=== PATIENT | male | born 1960 | race Caucasian/White ===

== ENCOUNTER 2017-11-10 14:29 | Inpatient (IN) | payer BC ==
[2017-11-10] MEDS ORDERED: NS 1,000 ML IV ONE (15:36)
[2017-11-10] MEDS ORDERED: ONDANSETRON 4 MG/2 ML VIAL IVP ONE (15:43)
[2017-11-10 15:49] LABS: PLATELET COUNT 368 10^3/uL (150-400)
--- NOTE | 2017-11-10 15:53 | EDPHY ---
H & P Time Seen by Provider: 11/10/17 15:21 HPI/ROS: CHIEF COMPLAINT: Vomiting, headache HISTORY OF PRESENT ILLNESS: 57-year-old male presents to the emergency department by private vehicle complaining of 3 weeks of vomiting and severe headache. The patient was diagnosed with squamous cell carcinoma of the head and neck 3 weeks ago in [place]. He had a biopsy done at that time. The patient states since that time he has been vomiting multiple episodes per day. He still has severe frontal headache which she describes as "pressure ". Denies chest pain or difficulty breathing. No fevers or chills. He has lost a great deal of weight. He is not eating or drinking anything. He he has urinated very little. REVIEW OF SYSTEMS: Constitutional: No fever, no chills. Eyes: No double or blurry vision. ENT: No sore throat. Respiratory: No cough, no shortness of breath. Cardiac: No chest pain. Gastrointestinal: Vomiting as above. No abdominal pain or diarrhea. Genitourinary: No dysuria. Musculoskeletal: No neck or back pain. Skin: No rashes. Neurological: headache. Past Medical/Surgical History: Squamous cell carcinoma of the head and neck diagnosed 3 weeks ago, former smoker, chews tobacco, hypertension Social History: from [place] Smoking Status: Former smoker Physical Exam: General Appearance: Lethargic, no distress. Afebrile. Daughter at bedside Eyes: Pupils equal and round. Extraocular motions are all intact. ENT: Mouth: Mucous membranes dry. Respiratory: No wheezing, rhonchi, or rales, lungs are clear to auscultation. Cardiovascular: Regular rate and rhythm. Gastrointestinal: Abdomen is soft and nontender, no masses, no rebound or guarding, bowel sounds normal. Neurological: Alert and oriented x 3, cranial nerves II through XII grossly intact Skin: Warm and dry, no rashes. Musculoskeletal: Nontender to palpate along the cervical, thoracic or lumbar spine. Neck is supple. Extremities: Full range of motion and no peripheral edema. Psychiatric: Patient is oriented X 3, there is no agitation. Constitutional: Initial Vital Signs Temperature (C) 36.8 C 11/10/17 14:37 Heart Rate 61 11/10/17 14:37 Respiratory Rate 16 11/10/17 14:37 Blood Pressure 146/90 H 11/10/17 14:37 O2 Sat (%) 95 11/10/17 14:37 O2 Delivery Mode Room Air Allergies/Adverse Reactions: No Known Allergies Allergy (Unverified 11/10/17 14:36) Home Medications: Medication Instructions Recorded Benazepril HCl 11/10/17 Zofran 11/10/17 fentaNYL 11/10/17 traMADol 11/10/17 Medical Decision Making ED Course/Re-evaluation: Case was discussed with Dr. Aleks Hernandez, secondary supervising physician, who did not directly evaluate the patient but agrees with treatment and plan. 57-year-old male presents with ongoing headache and head pressure as well as multiple episodes of vomiting. The patient will be admitted to the hospital for continued IV therapy and pain management. Awaiting CT imaging of his head and neck to evaluate for possible bleed verses metastasis from his squamous cell carcinoma. Patient received 4 mg of IV morphine with relief as well as 4 mg of Zofran. He received IV normal saline. Differential Diagnosis: Including but not limited to carcinoma, intracranial bleed, dehydration, electrolyte abnormality Care Turn Over: Care will be turned over to Dr. Aleks Hernandez for disposition and plan. Awaiting CT scan results. - Data Points Laboratory Results: Laboratory Results 11/10/17 15:40 11/10/17 15:40 11/10/17 11/10/17 15:40 15:40 WBC 12.78 10^3/uL H 10^3/uL (3.80-9.50) RBC 5.04 10^6/uL 10^6/uL (4.40-6.38) Hgb 15.3 g/dL g/dL (13.7-17.5) Hct 44.2 % % (40.0-51.0) MCV 87.7 fL fL (81.5-99.8) MCH 30.4 pg pg (27.9-34.1) MCHC 34.6 g/dL g/dL (32.4-36.7) RDW 13.2 % % (11.5-15.2) Plt Count 368 10^3/uL 10^3/uL (150-400) MPV 9.1 fL fL (8.7-11.7) Neut % (Auto) 75.9 % H % (39.3-74.2) Lymph % (Auto) 10.8 % L % (15.0-45.0) [place] % (Auto) 10.5 % % (4.5-13.0) Eos % (Auto) 0.6 % % (0.6-7.6) Baso % (Auto) 0.7 % % (0.3-1.7) Nucleat RBC Rel Count 0.0 % % (0.0-0.2) Absolute Neuts (auto) 9.70 10^3/uL H 10^3/uL (1.70-6.50) Absolute Lymphs (auto) 1.38 10^3/uL 10^3/uL (1.00-3.00) Absolute Monos (auto) 1.34 10^3/uL H 10^3/uL (0.30-0.80) Absolute Eos (auto) 0.08 10^3/uL 10^3/uL (0.03-0.40) Absolute Basos (auto) 0.09 10^3/uL 10^3/uL (0.02-0.10) Absolute Nucleated RBC 0.00 10^3/uL 10^3/uL (0-0.01) Immature Gran % 1.5 % H % (0.0-1.1) Immature Gran # 0.19 10^3/uL H 10^3/uL (0.00-0.10) Sodium 134 mEq/L L mEq/L (135-145) Potassium 4.2 mEq/L mEq/L (3.5-5.2) Chloride 98 mEq/L mEq/L (97-110) Carbon Dioxide 21 mEq/l L mEq/l (22-31) Anion Gap 15 mEq/L mEq/L (8-16) BUN 12 mg/dL mg/dL (7-23) Creatinine 0.7 mg/dL mg/dL (0.7-1.3) Estimated GFR > 60 Glucose 111 mg/dL H mg/dL (70-100) Calcium 9.6 mg/dL mg/dL (8.5-10.4) Medications Given: Discontinued Medications Sodium Chloride (Ns) 1,000 mls @ 0 mls/hr IV ONCE ONE PRN Reason: Wide Open Stop: 11/10/17 15:37 Last Admin: 11/10/17 15:43 Dose: 1,000 mls Morphine Sulfate (Morphine) 4 mg IVP EDNOW ONE Stop: 11/10/17 15:49 Last Admin: 11/10/17 15:50 Dose: 4 mg Ondansetron HCl (Zofran) 4 mg IVP EDNOW ONE Stop: 11/10/17 15:44 Last Admin: 11/10/17 15:47 Dose: 4 mg Departure - Departure Disposition: [facility] Clinical Impression: Squamous cell carcinoma Vomiting Qualifiers: Vomiting type: unspecified Vomiting Intractability: intractable Nausea presence : with nausea Qualified Code(s): R11.2 - Nausea with vomiting, unspecified Condition: Fair
[2017-11-10] MEDS ORDERED: IOPAMIDOL (ISOVUE-300) 100 ML BTL ONE (16:58)
[2017-11-10] MEDS ORDERED: PROMETHAZINE HCL 25 MG/ML INJ IVP ONE (19:42)
[2017-11-10] MEDS ORDERED: PROMETHAZINE HCL 25 MG/ML INJ ONE (19:51)
[2017-11-10] MEDS ORDERED: ONDANSETRON DISINTEGRATING 4 MG TAB PO PRN (23:50)
[2017-11-10] MEDS ORDERED: ACETAMINOPHEN 325 MG TAB PO PRN (23:50)
--- NOTE | 2017-11-11 00:21 | PDGENHP ---
History and Physical - Chief Complaint n/v - History of Present Illness this is a 57 yo male with recently diagnosed squamous cell carcinoma of the head and neck in [place] who was schedule to establish care with Oncology today but was sent to the E.D by the front staff due to n/v. Since diagnosis, he has had minimal oral intake due the significant nausea. He feels slightly better since receiving IVF in the E.D. He had a BEEBE in the E.D. and this has resolved. +Weight loss -cp, sob, palpitations, urinary sx's CT scan of head and cervical spine: Significant for posterior nasopharyngeal tumor which is eating up into the clivus. There is fluid in this then 0 8 sinuses. There is no brain bleed or hydrocephalus. No bony mets in the cervical spine. Past Medical/Surgical History: Squamous cell carcinoma of the head and neck diagnosed 3 weeks ago, former smoker, chews tobacco, hypertension Social History: former tobacco chews tobaccom from [place] FmHx: [place] History Information - Allergies/Home Medication List Allergies/Adverse Reactions: No Known Allergies Allergy (Unverified 11/10/17 14:36) Home Medications: Benazepril HCl [Lotensin (*)] 10 mg PO DAILY 11/10/17 [Last Taken 11/10/17] Ondansetron Odt [Zofran Odt 4 mg (*)] 4 mg PO Q4 PRN 11/10/17 [Last Taken 09:00] I have personally reviewed and updated: medical history, social history - Social History Smoking Status: Former smoker Review of Systems Review of Systems: ROS: 10pt was reviewed & negative except for what was stated in HPI & below Physical Exam Physical Exam: Temp Pulse Resp BP Pulse Ox 36.8 C 68 12 151/94 H 98 11/10/17 23:53 11/10/17 23:53 11/10/17 23:53 11/10/17 23:53 11/10/17 23:53 Constitutional: no apparent distress Eyes: PERRL, EOMI Ears, Nose, Mouth, Throat: dry mucous membranes Cardiovascular: regular rate and rhythym Respiratory: no respiratory distress, no rales or rhonchi Gastrointestinal: normoactive bowel sounds, soft, non-tender abdomen Genitourinary: no bladder fullness Skin: warm Neurologic: AAOx3 Psychiatric: interacting appropriately, not anxious, not encephalopathic, thought process linear Lymph, Heme, Immunologic: No petechiae Lab Data & Imaging Review 11/10/17 15:40 11/10/17 15:40 WBC 12.78 10^3/uL (3.80-9.50) H 11/10/17 15:40 RBC 5.04 10^6/uL (4.40-6.38) 11/10/17 15:40 Hgb 15.3 g/dL (13.7-17.5) 11/10/17 15:40 Hct 44.2 % (40.0-51.0) 11/10/17 15:40 MCV 87.7 fL (81.5-99.8) 11/10/17 15:40 MCH 30.4 pg (27.9-34.1) 11/10/17 15:40 MCHC 34.6 g/dL (32.4-36.7) 11/10/17 15:40 RDW 13.2 % (11.5-15.2) 11/10/17 15:40 Plt Count 368 10^3/uL (150-400) 11/10/17 15:40 MPV 9.1 fL (8.7-11.7) 11/10/17 15:40 Neut % (Auto) 75.9 % (39.3-74.2) H 11/10/17 15:40 Lymph % (Auto) 10.8 % (15.0-45.0) L 11/10/17 15:40 [place] % (Auto) 10.5 % (4.5-13.0) 11/10/17 15:40 Eos % (Auto) 0.6 % (0.6-7.6) 11/10/17 15:40 Baso % (Auto) 0.7 % (0.3-1.7) 11/10/17 15:40 Nucleat RBC Rel Count 0.0 % (0.0-0.2) 11/10/17 15:40 Absolute Neuts (auto) 9.70 10^3/uL (1.70-6.50) H 11/10/17 15:40 Absolute Lymphs (auto) 1.38 10^3/uL (1.00-3.00) 11/10/17 15:40 Absolute Monos (auto) 1.34 10^3/uL (0.30-0.80) H 11/10/17 15:40 Absolute Eos (auto) 0.08 10^3/uL (0.03-0.40) 11/10/17 15:40 Absolute Basos (auto) 0.09 10^3/uL (0.02-0.10) 11/10/17 15:40 Absolute Nucleated RBC 0.00 10^3/uL (0-0.01) 11/10/17 15:40 Immature Gran % 1.5 % (0.0-1.1) H 11/10/17 15:40 Immature Gran # 0.19 10^3/uL (0.00-0.10) H 11/10/17 15:40 Sodium 134 mEq/L (135-145) L 11/10/17 15:40 Potassium 4.2 mEq/L (3.5-5.2) 11/10/17 15:40 Chloride 98 mEq/L (97-110) 11/10/17 15:40 Carbon Dioxide 21 mEq/l (22-31) L 11/10/17 15:40 Anion Gap 15 mEq/L (8-16) 11/10/17 15:40 BUN 12 mg/dL (7-23) 11/10/17 15:40 Creatinine 0.7 mg/dL (0.7-1.3) 11/10/17 15:40 Estimated GFR > 60 11/10/17 15:40 Glucose 111 mg/dL (70-100) H 11/10/17 15:40 Calcium 9.6 mg/dL (8.5-10.4) 11/10/17 15:40 Assessment & Plan Assessment: #squamous cell carcinoma of the head and neck #Profound Dehydration #N/V #Beebe, resolving #Unintentional weight loss #Leukocytosis, afebrile PLan: Admission IVF antiemetics pain mgm Onc to see tomorrow Check Mg Lovenox for DVT proph Full code
[2017-11-11] MEDS: NS 1,000 ML IV SCH ×2 (01:24→18:49)
[2017-11-11] MEDS: ONDANSETRON 4 MG/2 ML VIAL IVP PRN ×5 (02:16→20:27)
[2017-11-11] MEDS: HYDROCODONE/APAP 5/325 TAB PO PRN ×4 (03:23→18:16)
[2017-11-11 05:56] LABS: PLATELET COUNT 364 10^3/uL (150-400)
[2017-11-11] MEDS: BENAZEPRIL HCL 10 MG TAB PO SCH (08:05)
[2017-11-11] MEDS: ENOXAPARIN 40 MG/0.4 ML SYR SC SCH (08:06)
[2017-11-11] MEDS ORDERED: ALTEPLASE 2 MG VIAL IVP PRN (08:55)
--- NOTE | 2017-11-11 10:16 | GCON ---
[f rep st] CONSULTATION ONCOLOGY CONSULTATION DATE OF CONSULTATION: 11/11/2017 REASON FOR CONSULTATION: Nasopharyngeal carcinoma. HISTORY OF PRESENT ILLNESS: The patient is a pleasant 57-year-old gentleman, who was previously jazmine ng in [place]. His initial evaluation was done in [place]. The patient reports approximatel y 2 months of frontal headache. This became progressively worse. He was evaluated in [place]. He had imaging studies done, which ultimately revealed evidence of a large nasopharyngeal carcinoma. Th e patient was seen by an ENT in [place]. He underwent direct visualization of the malignancy on October 20. He had deviation of the septum toward the left side. He had multiple biopsies taken of mass in the nasopharynx. Final pathology confirmed an EBV negative, poorly differentiated squamous ce ll carcinoma. The patient opted to have his treatment done here in [place], as his daughter lives locally. He was due to see Dr. Padilla in the outpatient setting, but reported vomiting blood and was, thus, sent to the ER. A head CT done in the ER last evening revealed a 4.5 x 3.6 cm soft tissue mass involv ing the clivus, extending into the prevertebral nasopharyngeal region. There was a posterior nasophar yngeal mucosal mass measuring 5.4 cm with destruction of the clivus, and opacification of bilateral s phenoid sinuses. The patient had a PET CT scan done on October 27 in [place]. This study revealed a hypermetabo lic posterior nasopharyngeal mass extending 5.8 cm vertically x 4.4 cm transversely x 3.9 cm in AP di mension, with moth-eaten destruction of the clivus and skull base, and invasion into the sphenoid sin us. He was noted to have bilateral hypermetabolic cervical lymph node adenopathy, with no evidence of distant metastatic disease. His bleeding appears to have stopped spontaneously. He was evaluated by Dr. Dunn of Radiation Oncology in the ER, and radiation therapy is planned to [facility] either today or tomorrow. He is scheduled to be formally evaluated in the office by Dr. Mona lundberg today. The patient reports a continued headache, which is somewhat better with pain medication. He denies ch est pain, cough, exertional dyspnea. He has lost an unspecified amount of weight. Denies abdominal pa in or bloating. PAST MEDICAL HISTORY: Hypertension, otherwise unremarkable. PAST SURGICAL HISTORY: None. FAMILY MEDICAL HISTORY: Noncontributory. SOCIAL HISTORY: The patient lives in [place]. 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 He is . He smoked b riefly in his youth, but quit in his late teens. He does chew tobacco. He has a daughter, who lives [facility]. REVIEW OF SYSTEMS: As outlined above. The patient additionally denies visual changes. He does note a mild palsy involving the muscles of his left face. Remainder of 10-point review of systems otherwise negative. PHYSICAL EXAM: GENERAL: The patient is resting comfortably in bed. HEENT: He has a subtle left facia l palsy. Pupils are equal and reactive. Extraocular eye movements intact. The function of his facial muscles is grossly normal. He has no upper extremity weakness. NECK: He there is no palpable neck adenopathy. No supraclavicular or axillary adenopathy. HEART: Regular without murmur. LUNGS: Clear bi laterally. ABDOMEN: Soft, nontender, nondistended. EXTREMITIES: No extremity swelling or edema. NEURO LOGIC: Patient alert, oriented, and appropriate. IMAGING STUDIES: As outlined above. LABORATORY DATA: Pathology results as outlined above. BMP from today, sodium 136, potassium 4.4, chloride 100, bicarb 23, BUN 11, creatinine 0.8, magnesium 1.8. CBC from today, white count 14.8, hemoglobin 14.9, hematocrit 42.7, platelet count is 364,000, absolute neutrophil count is 11,370. IMPRESSION: 1. 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 2. Bleeding secondary to #1. 3. Headache secondary to #1. 4. Potential cranial nerve involvement secondary to #1. PLAN: The patient is a 57-year-old gentleman who was admitted with a large nasopharyngeal squamous c ell carcinoma. He has been evaluated by Radiation Oncology in the emergency department. He will be se en formally by Dr. Dunn later today. The tentative plan is to begin radiation either today or [facility]. I favor administering concurrent cisplatin at a dose of 30 mg/m sq weekly with radiation. The plan was discussed with the patient. The side-effect profile of cisplatin was reviewed, including the potential for ototoxicity, nephrotoxicity, neurotoxicity. The patient is motivated to receive ag gressive treatment. I have ordered an MRI of the brain to more formally evaluate his tumor, especially to evaluate the po tential for cranial nerve involvement, which would change his T stage to T4. I have ordered a PICC li ne to be placed in anticipation of chemotherapy. I will coordinate his treatment with Dr. Dunn. Our service will continue to follow the patient during his stay, and hopefully he will be able to begin radiation therapy either today or tomorrow. The patient had multiple questions which were answered. Total time for today's visit was approximately 80 minutes, of which greater than 50% was spent in cou nseling and care coordination. /[id number]/MODL
--- NOTE | 2017-11-11 16:45 | ASMTCMCOM ---
CM Note CM Note Notes: 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 Pt moved from [place] after dx to be closer to dtr. Plan is for pt to start radiation today or tomorrow. He will get a PICC line placed for strt of chemo. [employer] ran benefits for pt's PICC line and he is covered at 100%. CM will follow for support, resources and DC needs. Date Signed: 11/11/2017 04:44 PM Electronically Signed By:Bertha Guevara LCSW
[2017-11-11] MEDS ORDERED: GADOBUTROL 10 ML VIAL IVP ONE (17:23)
[2017-11-11] MEDS ORDERED: PROMETHAZINE HCL 25 MG/ML INJ IVP PRN (18:35)
--- NOTE | 2017-11-11 20:16 | HOSPPROG ---
Hospitalist Progress Note Assessment/Plan: Pt not seen. He was at [facility] for radiation a good part of the day and was not in his room on my 2 attempts to round. I discussed his case with Dr. Delgado, who saw pt today and developed plan. 57 yo male with nasopharyngeal cancer admitted with: #squamous cell carcinoma of the head and neck #Profound Dehydration #N/V #Ymrick, resolving #Unintentional weight loss #Leukocytosis, afebrile Per onc, pt will have PICC placed today, then radiation today and start chemotherapy tomorrow with weekly cisplatin. I note his neck CT showed severe canal stenosis at C3-4 on the left and C5-6 on the right. Will evaluate for radicular symptoms tomorrow. Objective: Vital Signs Temp Pulse Resp BP Pulse Ox 37.0 C 72 18 138/79 H 92 11/11/17 19:39 11/11/17 19:39 11/11/17 19:39 11/11/17 19:39 11/11/17 19:39 Laboratory Results 11/11/17 05:21 11/11/17 05:21 11/10/17 11/11/17 11/12/17 05:59 05:59 05:59 Intake Total 1625 Balance 1625 ICD10 Worksheet Patient Problems: Problems Problem Status Onset Squamous cell carcinoma Acute Vomiting Acute
[2017-11-12] MEDS: HYDROCODONE/APAP 5/325 TAB PO PRN ×3 (01:29→22:13)
[2017-11-12] MEDS: BENAZEPRIL HCL 10 MG TAB PO SCH (08:01)
[2017-11-12] MEDS: ENOXAPARIN 40 MG/0.4 ML SYR SC SCH (08:02)
--- NOTE | 2017-11-12 09:56 | HOSPPROG ---
Hospitalist Progress Note Assessment/Plan: 57 yo male with nasopharyngeal cancer admitted with: #squamous cell carcinoma of the head and neck - Discussed with oncology. PICC placed. Started radiation treatment 11/11, plans to start chemo today after radiation, weekly cisplatin. Pain fairly well controlled with [place] and prn morphine. He likely has cranial nerve involvement with facial numbness and ptosis. Hopefully this will improve with treatment. # volume depletion - improved with IVF's. Taking po better now. # N/V - resolved. PRN anti-emetics. # Myrick - likely related to tumor, waxes and wanes. Pain control as above # Unintentional weight loss # DVT PPLX - high risk with cancer, Lovenox # Dispo - cont inpt Subjective: Pt doing ok this am. Reports headache starting to come back. No N/ V. Wants to eat a cheeseburger. No fevers. Tolerated radiation. Objective: Vital Signs Temp Pulse Resp BP Pulse Ox 36.9 C 69 15 121/76 H 96 11/12/17 07:58 11/12/17 07:58 11/12/17 07:58 11/12/17 07:58 11/12/17 07:58 Laboratory Results 11/12/17 03:31 11/12/17 03:31 11/11/17 11/12/17 11/13/17 05:59 05:59 05:59 Intake Total 1625 1634 Balance 1625 1634 - Physical Exam Constitutional: no apparent distress Eyes: PERRL, other (left ptosis) Ears, Nose, Mouth, Throat: moist mucous membranes Cardiovascular: regular rate and rhythym Respiratory: no respiratory distress Gastrointestinal: normoactive bowel sounds, soft, non-tender abdomen Skin: warm Musculoskeletal: full muscle strength Neurologic: other (left facial sensory deficit) Psychiatric: interacting appropriately ICD10 Worksheet Patient Problems: Problems Problem Status Onset Squamous cell carcinoma Acute Vomiting Acute
--- NOTE | 2017-11-12 11:53 | PDMN ---
Medical Necessity Medical necessity: M87 chemo- A-3 pt with nasopharyngeal Ca- squamous cell Carcinoma of head and neck. with PICC line placed for radiation/ Chemo
[2017-11-12] MEDS ORDERED: NS 1,000 ML IV ONE (14:00)
[2017-11-12] MEDS ORDERED: DEXAMETHASONE SOD PHOSPHATE IV ONE (14:30)
[2017-11-12] MEDS ORDERED: PALONOSETRON HCL 0.25 MG/5 ML VIAL IVP ONE (14:30)
[2017-11-12] MEDS ORDERED: FOSAPREPITANT 150 MG in NS 250 ML IV ONE (14:30)
[2017-11-12] MEDS ORDERED: NS IV ONE (15:00)
[2017-11-12] MEDS ORDERED: CISPLATIN IV ONE (15:00)
[2017-11-12] MEDS ORDERED: NS 500 ML IV ONE (15:30)
--- NOTE | 2017-11-12 15:55 | SOAPPROG ---
SOAP Progress Note Assessment/Plan: Assessment: 1) Locally advanced T3/T4N2 Nasopharyngeal SCC (EBV negative) 2) Potential cranial nerve involvement from #1 3) Bleeding secondary to #1 Plan: Patient was simulated by Dr. Dnun and began definitive radiation yesterday. Thus far, he is doing well, and has had no further episodes of bleeding. He will receive his first dose of radiosensitizing Cisplatin (30 mg/m2) today. Side effect profile, and intent of treatment again discussed with patient. Risk of neurotoxicity, nephrotoxicity, otoxicty associated with Cisplatin discussed. He can potentially be discharged over the weekend if no further bleeding. Dr. Padilla will continue his treatment as an outpatient. MRI done yesterday will help to refine the fci radiation treatment plan. Plan d/w patient. His questions were answered. 11/12/17 15:48 11/12/17 15:55 Subjective: No further bleeding. XRT began yesterday. He has had 2 tx thus far. Objective: Vital Signs Temp Pulse Resp BP Pulse Ox 37.2 C 76 19 124/84 H 95 11/12/17 12:21 11/12/17 12:21 11/12/17 12:21 11/12/17 12:21 11/12/17 12:21 - Time Spent With Patient Time Spent With Patient: 25 minutes Physical Exam - Physical Exam General Appearance: alert, no apparent distress EENT: other (Mild Left facial palsy. No evidence of bleeding.) Respiratory: lungs clear Neuro/Psych: alert, normal mood/affect ICD10 Worksheet Patient Problems: Problems Problem Status Onset Squamous cell carcinoma Acute Vomiting Acute
--- NOTE | 2017-11-12 15:59 | ASMTCMCOM ---
CM Note CM Note Notes: Met with pt to discuss his DC needs. Grace Wilcox, clinical data specialist is recommending the prehab program for head and neck cancer pts which consists of outpt St/RN/PT/OT. Discussed with pt the option the having these services at home if transportation to an outpt facility would be difficult. Pt wants to discuss with dtr. Also asked pt if his dtr was available to transport him to [facility] for radiation. Pt asked that Cm reach out to dtr Ashley ([phone]). for dtr. CM will continue to follow for support, resources and DC needs. Date Signed: 11/12/2017 03:59 PM Electronically Signed By:Bertha Guevara LCSW
[2017-11-12] MEDS ORDERED: BISACODYL 10 MG SUPP PR PRN (18:21)
[2017-11-12] MEDS ORDERED: POLYETHYLENE GLYCOL 3350 17 GM PKT PO PRN (18:21)
[2017-11-12] MEDS ORDERED: MAGNESIUM HYDROXIDE 30 ML UDCUP PO PRN (18:21)
[2017-11-12] MEDS ORDERED: LACTULOSE 20 GM/30 ML UDCUP PO PRN (18:21)
[2017-11-12] MEDS: SENNOSIDES/DOCUSATE SODIUM TAB PO SCH (20:22)
[2017-11-12 21:03] VITALS: RESP 18
[2017-11-13] MEDS: HYDROCODONE/APAP 5/325 TAB PO PRN (04:16)
[2017-11-13] MEDS: BENAZEPRIL HCL 10 MG TAB PO SCH (08:41)
[2017-11-13] MEDS: SENNOSIDES/DOCUSATE SODIUM TAB PO SCH (08:42)
[2017-11-13] MEDS: ENOXAPARIN 40 MG/0.4 ML SYR SC SCH (08:42)
--- NOTE | 2017-11-13 10:36 | SOAPPROG ---
SOAP Progress Note Assessment/Plan: Assessment/Plan: 1. Locally advanced T3/T4N2 nasopharyngeal SCC (EBV negative) started definitive radiation 11/11/2017 C1 Cisplatin (30mg/m2) given 11/12/2017 having nausea today likely associated w Cisplatin as well as narcotic use Zofran making worse per pt pt wanting to go home but would like nausea to subside a bit Add compazine trial of oral dilaudid for pain control 2. Potential CN involvement from #1 3. Bleeding 2/2 #1 - none since admission D/C ok if nausea/pain controlled F/U w Dr Padilla as outpt on discharge 11/13/17 10:30 Subjective: nauseated no vomiting BM this a.m Pain ok but pain meds seemingly making him more nauseated Objective: Vital Signs Temp Pulse Resp BP Pulse Ox 36.7 C 75 18 146/96 H 93 11/13/17 07:22 11/13/17 07:22 11/13/17 07:22 11/13/17 07:22 11/13/17 07:22 Laboratory Results 11/13/17 04:15 11/12/17 11/13/17 11/14/17 05:59 05:59 05:59 Intake Total 1850 350 Output Total 1525 Balance 325 350 Gen - NAD, but uncomfortable HEENT - anicteric CV - RRR Chest - CTAB Abd - soft, NT Ext - no edema ICD10 Worksheet Patient Problems: Problems Problem Status Onset Squamous cell carcinoma Acute Vomiting Acute
[2017-11-13] MEDS ORDERED: PROCHLORPERAZINE MALEATE 10 MG TAB PO PRN (11:07)
[2017-11-13] MEDS ORDERED: HYDROmorphONE/DILAUDID 4 MG TAB PO PRN (11:07)
[2017-11-13 11:19] VITALS: BP 149/84; PULSE 84; TEMP 98.3; O2SAT 95
[2017-11-13] MEDS ORDERED: ACETAMINOPHEN 500 MG TAB PO SCH (11:30)
--- NOTE | 2017-11-13 13:22 | PDIAF ---
- Diagnosis Diagnosis: nasophayrngeal cancer Code Status: Full Code - Medication Management Discharge Medications: Medications to Continue on Transfer Benazepril HCl [Lotensin (*)] 10 mg PO DAILY 11/10/17 [Last Taken 11/10/17] Ondansetron Odt [Zofran Odt 4 mg (*)] 4 mg PO Q4 PRN 11/10/17 [Last Taken 09:00] Acetaminophen [Tylenol ES 500 mg (*)] 1,000 mg PO TID #90 tab 11/13/17 [Last Taken Unknown] HYDROmorphone HCL [Dilaudid 4 mg (*)] 4 mg PO Q4HRS PRN #30 tab 11/13/17 [Last Taken Unknown] Ondansetron Odt [Zofran Odt 4 mg (*)] 4 mg PO Q4HRS PRN #30 tab 11/13/17 [Last Taken Unknown] Prochlorperazine Maleate [Compazine 10mg (*)] 10 mg PO Q6HRS PRN #30 tab [Last Taken Unknown] Sennosides/Docusate Sodium [Senokot-S] 1 - 2 tab PO BID tab 11/13/17 [Last Taken Unknown] Discharge Medications: Refer to the Discharge Home Medication list for PRN reason. PICC Care - Routine: Yes - Orders Services needed: Home Care, Registered Nurse Home Care Face to Face: I certify that this patient was under my care and that I had the required [id number] encounter meeting the encounter requirements on the discharge day. My findings support the fact that the patient is homebound as defined in Home Care Face to Face Continued: CMS Chapter 7 Medicare Benefits Manual 30.1.1 , The condition of the patient is such that there exists a normal inability to leave home and consequently, leaving home would require a considerable and taxing effort. Diet Recommendation: no restrictions on diet Diet Texture: Regular Texture Diet, Thin Liquids, Meds Whole w/Liquids - Follow Up Care Current Providers and Referrals: NONE *PRIMARY CARE P,. [Primary Care Provider] - As per Instructions Petar Padilla MD [Medical Doctor] -
--- NOTE | 2017-11-13 13:52 | ASDISCHSUM ---
Discharge Information Plan Status:IV ABX/Infusion Medically Cleared to Leave:11/12/2017 Discharge Date:11/13/2017 01:48 PM D/C Disposition:Home Health Service [facility] D/C Disposition:Home, Routine, Self-Care Projected Discharge Date:11/13/2017 02:00 PM Transportation at D/C:Family Discharge Delay Reason: Follow-Up Date:11/13/2017 02:00 PM Discharge Slot: Final Diagnosis: Placement Information Referral Type:Home Infusion Referral ID:[id number] Provider Name:[facility] ([facility]ly [facility]) Address 1:[address] Address 2: City:[place] Selection Factors: State:[place] Patient Contact Information Contact Name:OSCAR Relationship:Daughter Address:[address] [address] Work Phone: City:[place] Alternate Phone: State/Zip Code:[place] [address] Email: Financial Information Financial Class:HMO and PPO Plans Primary Plan Desc: OUT OF STATE PPO Primary Plan Number:[id number] Secondary Plan Desc: Secondary Plan Number: Assessment Information [facility] CM Progress Note CM Note CM Note Notes: 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 Pt moved from [place] after dx to be closer to dtr. Plan is for pt to start radiation today or tomorrow. He will get a PICC line placed for strt of chemo. [employer] ran benefits for pt's PICC line and he is covered at 100%. CM will follow for support, resources and DC needs. Date Signed: 11/11/2017 04:44 PM Electronically Signed By:Bertha Guevara LCSW [facility] CM Progress Note CM Note CM Note Notes: Met with pt to discuss his DC needs. Grace Wilcox, plant specialist is recommending the prehab program for head and neck cancer pts which consists of outpt St/RN/PT/OT. Discussed with pt the option the having these services at home if transportation to an outpt facility would be difficult. Pt wants to discuss with dtr. Also asked pt if his dtr was available to transport him to [facility] for radiation. Pt asked that Cm reach out to dtr Ashley ([phone]). LM for dtr. CM will continue to follow for support, resources and DC needs. Date Signed: 11/12/2017 03:59 PM Electronically Signed By:Bertha Guevara LCSW Case Management Discharge Plan Note Case Management Discharge Discharge Order Complete? Answers: Yes Patient to Obtain Answers: via Family Medications Transportation Arranged Answers: Family/Friends Faxed Final Orders Answers: Yes Family Notified Answers: Yes Discharge Comments Notes: Dc order received. Spoke with RN & MD. Ellen Wood at [facility]; agreeable to providing RN for PICC care support; dc orders faxed; confirmed recieved. Met with pt & his daughter, Ashley ([phone]); Ashley states her & her friend are planning on transporting pt back & forth to upcoming [facility] appointments. Discussed [employer] providing PICC support; pt agreeable; address & phone number confirmed. Updated MD & RN. No other needs at this time. Date Signed: 11/13/2017 01:49 PM Electronically Signed By:Purvi Becerril RN Intervention Information Intervention Type:*Incorrect Registration Date of Service:11/11/2017 09:11 AM Patient Type:Inpatient Staff Member:BRIAN Dan, Marley Hours: Discipline: Severity: Comment:
--- NOTE | 2017-11-13 20:25 | GDS ---
[f rep st] DISCHARGE SUMMARY DISCHARGE DIAGNOSES: 1. Squamous cell carcinoma of the head and neck. 2. Volume depletion, resolved with IV fluids. 3. Nausea, vomiting, resolved. 4. Headache, likely related to compression from the tumor. This is improved. 5. Diplopia, likely related to tumor compression. This is resolved at the time of discharge. 6. Facial numbness, likely related to cranial nerve compression from his tumor. 7. Ptosis, likely related to cranial nerve compression from tumor. This is resolved at time of disc harge. CONSULTANTS: Dr. Donn Delgado, Oncology. PROCEDURES: 1. Head CT November 10, 2017, shows posterior nasopharyngeal mass with associated destruction of the clivus consistent with local regional osseous metastasis and complete opacification of the sphenoid s inuses consistent with the patient's nasopharyngeal carcinoma. No evidence of hemorrhage, hydrocepha genny, midline shift, herniation or hematoma. 2. Cervical spine CT November 10, 2017, again showed posterior nasopharyngeal carcinoma with local re gional metastasis and complete destruction of the entire clivus, moderate cervical spondylosis, worse at C6-C7, resulting in C5-C6 moderate central canal stenosis, and very well [id number] neura l foraminal stenosis, worse on the left at C3-C4, and right C5-C6, with no definite osseous metastasi s to the cervical spine. 3. Brain MRI November 11, 2017, again showed large skull base mass extending from the nasopharynx to the sphenoid sinus into the clivus, compatible with primary recurrent nasopharyngeal malignancy with lateral extension of tumor into the cavernous sinus regions bilaterally. Nonspecific white matter di sease was noted. No evidence of intracranial metastases. 4. PICC line insertion November 11, 2017. HISTORY: For details, please see history and physical dated November 11, 2017. In brief, the patient is a 57-year-old male who was recently diagnosed with squamous cell carcinoma of the head and neck [facility]. Sent to Emergency Department with nausea and vomiting. He was admitted to the [facility] for further management. HOSPITAL COURSE: The patient admitted to Med/Surg Unit. He received IV fluids and antiemetics. He thinks his nausea and vomiting may have been related to his opioid use, and he feels he has more symp toms from Vicodin, and has tolerated Dilaudid better in the past. His nausea and vomiting completely resolved. He is eating burritos from [employer] on the day of discharge. Oncology consult was lambert gambino. He was also evaluated by Radiation Oncology, and radiation treatment was initiated. After 2 da ys of radiation, his ptosis has resolved. His visual deficits have also resolved, though he still fair s facial numbness. He received his first dose of cisplatin, and will follow the [facility] for ongoing chemotherapy treatments. Imaging was obtained as described above. DISPOSITION: The patient is discharged home in stable condition with home health RN care for [facility]. FOLLOWUP: Dr. Petar Padilla at [facility]. DISCHARGE MEDICATIONS: Please see Farm[facility] for completed up-to-date medication list. New medication s on discharge include: Tylenol 1,000 mg p.o. t.i.d. #90 no refills, Dilaudid 4 mg p.o. q.4 hours p. r.n. #30 no refills, Zofran 4 mg p.o. q.4 hours p.r.n. #30 no refills, Compazine 10 mg p.o. q.6 hours p.r.n. #30 no refills, Senokot 1-2 tabs p.o. twice b.i.d. p.r.n. constipation. He will continue all other outpatient medications as previously prescribed, including benazepril 10 m g p.o. daily. /[id number]/MODL
[2017-11-14] MEDS ORDERED: ONDANSETRON DISINTEGRATING 4 MG TAB PO PRN (09:00)
[2017-11-14] MEDS ORDERED: ONDANSETRON 4 MG/2 ML VIAL IVP PRN (09:00)
== END 2017-11-13 13:48 | disposition home health service (06) | DRG 147 ==
LOC: INTOOBSV 18:39 → F1N 21:30 → OBSVTOIN 11-12 11:54
PROVIDERS: ADMIT Family Medicine; ATTEND Hospitalist
PROC: 02HV33Z Insertion of Infusion Device into Superior Vena Cava, Percutaneous Approach (ICD-10-PCS; principal; 2017-11-11)
PROC: 0JH60XZ Insertion of Tunneled Vascular Access Device into Chest Subcutaneous Tissue and Fascia, Open Approach (ICD-10-PCS; principal; 2017-11-11)
PROC: 3E04305 Introduction of Other Antineoplastic into Central Vein, Percutaneous Approach (ICD-10-PCS; 2017-11-11)
DX: C11.9 Malignant neoplasm of nasopharynx, unspecified (principal); C79.51 Secondary malignant neoplasm of bone; E86.0 Dehydration; D72.829 Elevated white blood cell count, unspecified; R11.2 Nausea with vomiting, unspecified; R51 Headache; H53.2 Diplopia; R20.2 Paresthesia of skin; I10 Essential (primary) hypertension; H02.409 Unspecified ptosis of unspecified eyelid; M48.02 Spinal stenosis, cervical region; Z87.891 Personal history of nicotine dependence
CPT/HCPCS: 92610-GN; 96374; 97161-GP; A9585; C1751; G0378; J1100; J1200; J1453; J1650; J2270; J2405; J2469; J2550; J9060; Q9967

== ENCOUNTER 2017-11-15 07:00 | Emergency (ER) | payer BC ==
[2017-11-15] MEDS ORDERED: ONDANSETRON 4 MG/2 ML VIAL ONE (07:15)
[2017-11-15] MEDS ORDERED: ONDANSETRON 4 MG/2 ML VIAL IVP ONE (07:19)
--- NOTE | 2017-11-15 07:31 | EDPHY ---
H & P Stated Complaint: vomiting -currently getting chemo/radiation head/neck CA - Personal History Current Tetanus/Diphtheria Vaccine: No Current Tetanus Diphtheria and Acellular Pertussis (TDAP): No - Medical/Surgical History Hx Asthma: No Hx Chronic Respiratory Disease: No Hx Diabetes: No Hx Cardiac Disease: No Hx Renal Disease: No Hx Cirrhosis: No Hx Alcoholism: No Hx HIV/AIDS: No Hx Splenectomy or Spleen Trauma: No Other PMH: squamous cell carcinoma head and neck, HTN, - Social History Smoking Status: Former smoker Constitutional: Initial Vital Signs Temperature (C) 36.5 C 11/15/17 07:03 Heart Rate 77 11/15/17 07:03 Respiratory Rate 18 11/15/17 07:03 Blood Pressure 145/90 H 11/15/17 07:03 O2 Sat (%) 95 11/15/17 07:03 O2 Delivery Mode Room Air Allergies/Adverse Reactions: No Known Allergies Allergy (Unverified 11/10/17 14:36) Home Medications: Medication Instructions Recorded Benazepril HCl 11/15/17 Dilaudid 11/15/17 Prochlorperazine Maleate 11/15/17 Medical Decision Making ED Course/Re-evaluation: CHIEF COMPLAINT: HISTORY OF PRESENT ILLNESS: REVIEW OF SYSTEMS: A 10 point review of systems was performed and is negative with the exception of the elements mentioned in the history of present illness. PHYSICAL EXAM: HR, BP, O2 Sat, RR. Temp noted General Appearance: Alert, well hydrated, appropriate, and non-toxic appearing. Head: Atraumatic without scalp tenderness or obvious injury Eyes: Pupils equal, round, reactive to light and accommodation, EOMI, no trauma , no injection. Ears: Clear bilaterally, no perforation, normal landmarks Nose: Atraumatic, no rhinorrhea, clear. Throat: There is no erythema or exudates, no lesions, normal tonsils, mucus membranes moist. Neck: Supple, 2+ carotid upstroke, non-tender, no lymphadenopathy. Respiratory: No retractions, no distress, no wheezes, and no accessory muscle use. Lungs are clear to auscultation bilaterally. Cardiovascular: Regular rate and rhythm, no murmurs, rubs, or gallops. Bilateral carotid, radial, dorsalis pedis, and posterior tibial pulses intact. Good capillary refill all extremities. Gastrointestinal: Abdomen is soft, non-tender, non-distended, no masses, no rebound, no guarding, no peritoneal signs. Musculoskeletal: Normal active ROM of all extremities, atraumatic. Neurological: Alert, appropriate, and interactive. The patient has normal DTRs and non-focal cranial nerves, motor, sensory, and cerebellar exam. Skin: No rashes, good turgor, no nodules on palpation. PAST MEDICAL HISTORY: PAST SURGICAL HISTORY: SOCIAL HISTORY: DIAGNOSTICS/PROCEDURES/CRITICAL CARE TIME: DIFFERENTIAL DIAGNOSIS: MEDICAL DECISION MAKING: - Data Points Medications Given: Discontinued Medications Ondansetron HCl (Zofran) 4 mg IVP EDNOW ONE Stop: 11/15/17 07:20 Last Admin: 11/15/17 07:19 Dose: 4 mg Departure - Departure Referrals: NONE *PRIMARY CARE P,. [Primary Care Provider] - As per Instructions
--- NOTE | 2017-11-15 07:31 | EDPHY ---
H & P Stated Complaint: vomiting -currently getting chemo/radiation head/neck CA Time Seen by Provider: 11/15/17 07:23 - Personal History Current Tetanus/Diphtheria Vaccine: No Current Tetanus Diphtheria and Acellular Pertussis (TDAP): No - Medical/Surgical History Hx Asthma: No Hx Chronic Respiratory Disease: No Hx Diabetes: No Hx Cardiac Disease: No Hx Renal Disease: No Hx Cirrhosis: No Hx Alcoholism: No Hx HIV/AIDS: No Hx Splenectomy or Spleen Trauma: No Other PMH: squamous cell carcinoma head and neck, HTN, - Social History Smoking Status: Former smoker Constitutional: Initial Vital Signs Temperature (C) 36.5 C 11/15/17 07:03 Heart Rate 77 11/15/17 07:03 Respiratory Rate 18 11/15/17 07:03 Blood Pressure 145/90 H 11/15/17 07:03 O2 Sat (%) 95 11/15/17 07:03 O2 Delivery Mode Room Air Allergies/Adverse Reactions: No Known Allergies Allergy (Unverified 11/10/17 14:36) Home Medications: Medication Instructions Recorded Benazepril HCl 11/15/17 Dilaudid 11/15/17 Prochlorperazine Maleate 11/15/17 Medical Decision Making ED Course/Re-evaluation: CHIEF COMPLAINT: Nausea and vomiting HISTORY OF PRESENT ILLNESS: The patient is a 57 y/o male with active squamous cell carcinoma arriving with his daughter complaining of severe nausea and vomiting onset last night. He was recently diagnosed with a large nasopharyngeal tumor and was admitted a week ago for nausea and vomiting that resolved with fluids and antiemetics and diplopia, facial numbness, and ptosis likely related to nerve compression from tumor. He began radiation treatment and had a brain MRI during that admission and is followed by Dr. Padilla for outpatient treatment. He had his first chemotherapy session this week. He has been using a variety of antiemetics at home including Reglan, Compazine, Phenergan, and Zofran without alleviation of his nausea and vomiting. IV Zofran worked for symptoms while in the hospital earlier. He denies abdominal pain, fever, diarrhea, cough, dyspnea, chest pain. REVIEW OF SYSTEMS: A 10 point review of systems was performed and is negative with the exception of the elements mentioned in the history of present illness. PHYSICAL EXAM: HR, BP, O2 Sat, RR. Temp noted General Appearance: Alert, well hydrated, appropriate, and non-toxic appearing. Head: Atraumatic without scalp tenderness or obvious injury Eyes: Pupils equal, round, reactive to light and accommodation, EOMI, no trauma , no injection. Nose: Atraumatic, no rhinorrhea, clear. Throat: Mucus membranes moist. Neck: Supple, nontender, no lymphadenopathy. Respiratory: No retractions, no distress, no wheezes, and no accessory muscle use. Lungs are clear to auscultation bilaterally. Cardiovascular: Regular rate and rhythm, no murmurs, rubs, or gallops. Good capillary refill all extremities. PICC left arm. Gastrointestinal: Abdomen is soft, nontender, non-distended, no masses, no rebound, no guarding, no peritoneal signs. Musculoskeletal: Normal active ROM of all extremities, atraumatic. Neurological: Alert, appropriate, and interactive. The patient has non-focal cranial nerves, motor, sensory, and cerebellar exam. Skin: No rashes, good turgor, no nodules on palpation. Past medical history: Squamous cell carcinoma of head and neck with large nasopharyngeal tumor - radiation & chemotherapy; hypertension Past surgical history: Denies Family history: Noncontributory Social history: Former smoker, chews tobacco. Daughter at bedside. From [place] Prior medical records reviewed including admission 11/10/17 for nausea and vomiting related to tumor. DIFFERENTIAL DIAGNOSIS: The differential diagnosis for the patient's nausea and vomiting included but was not limited to side effects of chemotherapy and radiation treatments, effect from nasopharyngeal tumor, gastroenteritis, gastritis, appendicitis, and medication side effect. MEDICAL DECISION MAKING: This is a 57 y/o male with recent diagnosis of a large squamous cell carcinoma nasopharyngeal tumor who presents with persistent nausea and vomiting following recent chemotherapy and radiation treatments. His exam is unremarkable. Plan for IV, labs, and symptom management. Lactate ordered to evaluate for hypoperfusion due to dehydration. 1L IV NS and 4mg IV Zofran administered for symptoms. Reassessed patient. He is tolerating PO fluids after one dose of Zofran. His labs looks normal. He has two more oncology appointments scheduled this morning and feels comfortable leaving so he can attend those appointments. He will receive an additional 4mg IV Zofran prior to discharge. We've put in a note for case management to discuss options for home nursing care for IV Zofran needs in the future as well. He and his daughter are comfortable with this plan. - Data Points Laboratory Results: Laboratory Results 11/15/17 06:40 11/15/17 06:40 11/15/1718 18 06:40 06:40 06:40 WBC 7.65 10^3/uL 10^3/uL (3.80-9.50) RBC 4.89 10^6/uL 10^6/uL (4.40-6.38) Hgb 14.6 g/dL g/dL (13.7-17.5) Hct 42.4 % % (40.0-51.0) MCV 86.7 fL fL (81.5-99.8) MCH 29.9 pg pg (27.9-34.1) MCHC 34.4 g/dL g/dL (32.4-36.7) RDW 12.8 % % (11.5-15.2) Plt Count 333 10^3/uL 10^3/uL (150-400) MPV 9.2 fL fL (8.7-11.7) Neut % (Auto) 69.1 % % (39.3-74.2) Lymph % (Auto) 13.2 % L % (15.0-45.0) [place] % (Auto) 13.7 % H % (4.5-13.0) Eos % (Auto) 2.1 % % (0.6-7.6) Baso % (Auto) 1.0 % % (0.3-1.7) Nucleat RBC Rel Count 0.0 % % (0.0-0.2) Absolute Neuts (auto) 5.28 10^3/uL 10^3/uL (1.70-6.50) Absolute Lymphs (auto) 1.01 10^3/uL 10^3/uL (1.00-3.00) Absolute Monos (auto) 1.05 10^3/uL H 10^3/uL (0.30-0.80) Absolute Eos (auto) 0.16 10^3/uL 10^3/uL (0.03-0.40) Absolute Basos (auto) 0.08 10^3/uL 10^3/uL (0.02-0.10) Absolute Nucleated RBC 0.00 10^3/uL 10^3/uL (0-0.01) Immature Gran % 0.9 % % (0.0-1.1) Immature Gran # 0.07 10^3/uL 10^3/uL (0.00-0.10) VBG Lactic Acid 1.1 mmol/L mmol/L (0.7-2.1) Sodium 136 mEq/L mEq/L (135-145) Potassium 3.7 mEq/L mEq/L (3.5-5.2) Chloride 100 mEq/L mEq/L (97-110) Carbon Dioxide 21 mEq/l L mEq/l (22-31) Anion Gap 15 mEq/L mEq/L (8-16) BUN 11 mg/dL mg/dL (7-23) Creatinine 0.7 mg/dL mg/dL (0.7-1.3) Estimated GFR > 60 Glucose 98 mg/dL mg/dL (70-100) Calcium 9.6 mg/dL mg/dL (8.5-10.4) Total Bilirubin 0.6 mg/dL mg/dL (0.1-1.4) Conjugated Bilirubin 0.3 mg/dL mg/dL (0.0-0.5) Unconjugated Bilirubin 0.3 mg/dL mg/dL (0.0-1.1) AST 24 IU/L IU/L (17-59) ALT 43 IU/L IU/L (21-72) Alkaline Phosphatase 94 IU/L IU/L (38-126) Total Protein 7.1 g/dL g/dL (6.3-8.2) Albumin 4.0 g/dL g/dL (3.5-5.0) Lipase 78 IU/L IU/L (23-300) Medications Given: Discontinued Medications Sodium Chloride (Ns) 1,000 mls @ 0 mls/hr IV EDNOW ONE; Wide Open PRN Reason: Protocol Stop: 11/15/17 07:40 Last Admin: 11/15/17 07:44 Dose: 1,000 mls Ondansetron HCl (Zofran) 4 mg IVP EDNOW ONE Stop: 11/15/17 07:20 Last Admin: 11/15/17 07:19 Dose: 4 mg Departure - Departure Disposition: Home, Routine, Self-Care Clinical Impression: Squamous cell carcinoma, Chemotherapy induced nausea and vomiting Vomiting Qualifiers: Vomiting type: unspecified Vomiting Intractability: non-intractable Nausea presence: with nausea Qualified Code(s): R11.2 - Nausea with vomiting, unspecified Condition: Good Instructions: Acute Nausea and Vomiting (ED), Squamous Cell Carcinoma (DC) Additional Instructions: 1. Follow up with your oncologist today as planned. 2. We've asked our case management team to contact you to help navigate possible home care options for future IV Zofran needs. Recommend also contacting your insurance as well as speaking with your oncology team to discuss these options. 3. We are of course always happy to see you in the ED as needed. Please return to the ED for fever, if you are unable to keep down food or water at home, or any worsening of condition. Referrals: Petar Padilla MD [Medical Doctor] - As per Instructions Report Scribed for: Stephen Alvarado Report Scribed by: Melissa Fontanez Date of Report: 11/15/17 Time of Report: 08:06
[2017-11-15] MEDS ORDERED: NS 1,000 ML IV ONE (07:39)
[2017-11-15 07:47] LABS: PLATELET COUNT 333 10^3/uL (150-400)
[2017-11-15 08:37] VITALS: BP 159/102; PULSE 63; RESP 16; TEMP 97.9; O2SAT 93
== END 2017-11-15 08:36 | disposition home or self-care (01) ==
DX: R11.2 Nausea with vomiting, unspecified (principal); T45.1X5A Adverse effect of antineoplastic and immunosuppressive drugs, initial encounter; C11.9 Malignant neoplasm of nasopharynx, unspecified; I10 Essential (primary) hypertension; E86.9 Volume depletion, unspecified; Z85.828 Personal history of other malignant neoplasm of skin; Z87.891 Personal history of nicotine dependence
CPT/HCPCS: 96374; J2405

== ENCOUNTER 2017-11-23 09:16 | Day surgery (SDC) | payer BC ==
[~2017-11-23 09:16] MED LIST: FLUMAZENIL 0.5 MG/5 ML MDV IVP PRN; MEPERIDINE 25 MG/ML SYR IVP PRN; MIDAZOLAM 2 MG/2 ML VIAL IVP PRN; NALOXONE HCL 0.4 MG/ML INJ IVP PRN; NS 1,000 ML IV SCH; fentaNYL 100 MCG/2 ML INJ IVP PRN
[2017-11-23] MEDS ORDERED: IOPAMIDOL (ISOVUE-300) 100 ML BTL ONE ×3 (09:44→11:18)
[2017-11-23] MEDS ORDERED: LIDOCAINE 1% 300 MG/30 ML SDV ONE (09:45)
[2017-11-23] MEDS ORDERED: LIDOCAINE 2% JELLY 20 ML (UROJECT) ONE (09:45)
--- NOTE | 2017-11-23 10:22 | PDPROPOC ---
Sedation Plan of Care Sedation Plan of Care: vital signs stable, mental status noted, patient educated of risks, benefits, alternatives, patient can tolerate sedation ASA Classification: ASA 3 Planned drugs: fentanyl, midazolam Mallampati Score: Class 1 Mallampati Reference Image: Patient passed 3-3-2 rule?: Yes
[2017-11-23] MEDS ORDERED: ONDANSETRON 4 MG/2 ML VIAL ONE (10:24)
--- NOTE | 2017-11-23 10:24 | PDGENHP ---
History & Physical Chief Complaint: NASOPHARYNGEAL CA History of Present Illness: GOING THROUGH CHEMOTHERAPY. NEED PROPHYLACTIC G- TUBE PLACEMENT. Pertinent Past, Social, Family History: H/O SMOKING, STOPPED 20 YRS AGO. Relevant Physical Exam: IN NO DISTRESS. Cardiorespiratory Assessment: RRR, CTA SANDY
[2017-11-23] MEDS ORDERED: fentaNYL 100 MCG/2 ML INJ ONE (10:25)
[2017-11-23] MEDS ORDERED: MIDAZOLAM 2 MG/2 ML VIAL ONE (10:25)
[2017-11-23] MEDS ORDERED: ACETAMINOPHEN 325 MG TAB PO PRN (11:23)
[2017-11-23] MEDS ORDERED: ONDANSETRON 4 MG/2 ML VIAL IVP PRN (11:23)
--- NOTE | 2017-11-23 11:27 | PDRADPN ---
Radiology Procedure Note Date of Procedure: 11/23/17 Radiologist: Danielle Madrid Anesthesia: IV Sedation (fentanyl and versed) Pre-op Diagnosis: nasopharyngeal CA Post-op Diagnosis: same Indication: needs prophylactic access Procedure: G-tube placement Finding(s): G-tube placed. Inf/Abcess present in the surg proc area at time of surgery?: No Complications: none
[2017-11-23 12:04] VITALS: RESP 16
[2017-11-23 13:13] VITALS: BP 132/99; O2SAT 96
== END 2017-11-23 12:35 | disposition home or self-care (01) ==
LOC: FIMAGING 09:16
PROVIDERS: ATTEND Internal Medicine Hematology & Oncology
PROC: 0DH63UZ Insertion of Feeding Device into Stomach, Percutaneous Approach (ICD-10-PCS; principal; 2017-11-23 11:30)
DX: C11.9 Malignant neoplasm of nasopharynx, unspecified (principal)
CPT/HCPCS: 49440; 99152; C1729; C1769; J1644; J2250; J2405; J3010; Q9967

== ENCOUNTER → 2017-11-25 | Outpatient (CLI) | payer BC | LOC: FIMAGING 17:32 | PROVIDERS: ATTEND Nurse Practitioner | DX: I82.622 Acute embolism and thrombosis of deep veins of left upper extremity (principal); I82.A12 Acute embolism and thrombosis of left axillary vein; I82.B12 Acute embolism and thrombosis of left subclavian vein; C11.9 Malignant neoplasm of nasopharynx, unspecified ==

== ENCOUNTER → 2017-12-22 | Outpatient (CLI) | payer BC | LOC: FIMAGING 15:11 | PROVIDERS: ATTEND Nurse Practitioner | DX: I82.622 Acute embolism and thrombosis of deep veins of left upper extremity (principal); I82.611 Acute embolism and thrombosis of superficial veins of right upper extremity ==

== ENCOUNTER 2018-01-13 11:27 | Inpatient (IN) | payer BC ==
[2018-01-13] MEDS ORDERED: NS 1,000 ML IV ONE (11:46)
[2018-01-13] MEDS ORDERED: ONDANSETRON 4 MG/2 ML VIAL IVP ONE ×2 (11:46→12:26)
--- NOTE | 2018-01-13 12:35 | EDPHY ---
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 Onset of vomiting 3 days ago, persistent since then. Unable to tolerate oral fluids or food, despite antiemetics. Associated with generalized weakness and several falls. He has not hurt himself in the falls. No abdominal pain or fever. Last chemotherapy was 2 weeks ago. REVIEW OF SYSTEMS: Constitutional: No fever, no chills Eyes: No visual changes ENT: No sore throat Respiratory: No cough, no shortness of breath Cardiac: No chest pain Gastrointestinal: no abdominal pain Genitourinary: No hematuria, no dysuria Musculoskeletal: No leg pain or swelling Skin: No rash Neurological: No headache Psychiatric: No anxiety Past Medical/Surgical History: Squamous cell carcinoma Social History: Oncologist: Dr. Padilla Smoking Status: Former smoker Physical Exam: General Appearance: Alert, pleasant, appears uncomfortable Eyes: Pupils equal and round, no conjunctival pallor or injection ENT, Mouth: Mucous membranes dry Neck: Normal inspection Respiratory: Lungs are clear to auscultation Cardiovascular: Regular rate and rhythm Gastrointestinal: Abdomen is soft and nontender Neurological: A&O, nonfocal exam Skin: Warm and dry, no rash Extremities: Nontender, no pedal edema Psychiatric: Mood and affect normal Constitutional: Initial Vital Signs Temperature (C) 36.6 C 01/13/18 11:31 Heart Rate 84 01/13/18 11:31 Respiratory Rate 17 01/13/18 11:31 Blood Pressure 151/89 H 01/13/18 11:31 O2 Sat (%) 99 01/13/18 11:31 O2 Delivery Mode Room Air Allergies/Adverse Reactions: No Known Allergies Allergy (Verified 01/13/18 11:30) Home Medications: Medication Instructions Recorded HYDROmorphone HCL [Dilaudid 2 mg 4 mg PO Q4HRS PRN 11/15/17 (*)] Prochlorperazine Maleate 10 mg PO Q6HRS PRN 11/15/17 [Compazine 10mg (*)] guaiFENesin [Mucinex 600 MG (*)] 600 mg PO BID 11/19/17 Granisetron [Sancuso] 1 each TD TH 01/13/18 LORazepam [Ativan (*)] 1 mg PO BID PRN 01/13/18 Omeprazole 40 mg PO DAILY 01/13/18 Oxymetazoline HCl [Afrin Nasal 1 spray EACHNARE BID 01/13/18 [place]] Rivaroxaban [Xarelto 10mg (*)] 20 mg PO DAILY 01/13/18 fentaNYL [Duragesic 75 MCG Patch 75 mcg TD Q72H 01/13/18 (*)] Dexamethasone [Decadron 2 MG (*)] 2 mg PO DAILY #9 tab 01/16/18 Fluconazole [Fluconazole Oral 200 mg PO DAILY #9 ml 01/16/18 Liquid] Ondansetron HCl [Zofran] 4 - 8 mg PO TID PRN #40 tablet 01/16/18 Medical Decision Making ED Course/Re-evaluation: This pt presents with intractable vomiting and dehydration, most likely secondary to chemotherapy. IV normal saline 1 L and Zofran 4 mg IV given. Still nauseated after Zofran. A 2nd dose of Zofran 4 mg IV given. Still vomiting, Ativan IV given. Reglan 10mg IV given, still nauseated. The hospitalist service was consulted for admission. Differential Diagnosis: Differential diagnosis includes though it is not limited to appendicitis, cholecystitis, diverticulitis, pyelonephritis, bowel perforation, small bowel obstruction, progressive CA. - Data Points Laboratory Results: Laboratory Results 01/13/18 11:58 01/13/18 11:58 Medications Given: Discontinued Medications Dexamethasone (Decadron Injection) 4 mg IVP Q12HRS BERE Stop: 07/12/18 20:59 Last Admin: 01/16/18 09:16 Dose: 4 mg Fentanyl (Duragesic) 75 mcg TD Q72H BERE Stop: 01/23/18 13:59 Last Admin: 01/13/18 15:11 Dose: 75 mcg Fluconazole (Fluconazole Oral Liquid) 200 mg PO DAILY BERE Stop: 02/14/18 10:29 Last Admin: 01/16/18 09:16 Dose: 200 mg Guaifenesin (Mucinex) 600 mg PO BID BERE Stop: 07/12/18 20:59 Last Admin: 01/16/18 09:16 Dose: 600 mg Hydromorphone HCl (Dilaudid) 4 mg PO Q4HRS PRN PRN Reason: Pain, Breakthrough Stop: 01/23/18 13:51 Last Admin: 01/16/18 09:23 Dose: 4 mg Sodium Chloride (Ns) 1,000 mls @ 0 mls/hr IV EDNOW ONE; Wide Open PRN Reason: Protocol Stop: 01/13/18 11:47 Last Admin: 01/13/18 11:57 Dose: 1,000 mls Dextrose/Sodium Chloride (D5w 1/2 Ns) 1,000 mls @ 75 mls/hr IV CONT BERE Stop: 07/12/18 13:59 Last Admin: 01/15/18 04:50 Dose: 1,000 mls Sodium Chloride (Ns) 500 mls @ 1,500 mls/hr IV ONCE ONE Stop: 01/13/18 16:28 Last Admin: 01/13/18 16:50 Dose: 500 mls Lorazepam (Ativan Injection) 0.5 mg IVP EDNOW ONE Stop: 01/13/18 13:06 Last Admin: 01/13/18 13:16 Dose: 0.5 mg Lorazepam (Ativan Injection) 0.5 - 1 mg IVP Q8HRS PRN PRN Reason: Anxiety, Unable to Take PO Stop: 07/12/18 13:53 Last Admin: 01/16/18 09:23 Dose: 1 mg Metoclopramide HCl (Reglan Injection) 10 mg IVP EDNOW ONE Stop: 01/13/18 13:07 Last Admin: 01/13/18 13:17 Dose: 10 mg Metoclopramide HCl (Reglan Injection) 5 mg IVP Q8HRS BERE Stop: 07/12/18 21:59 Last Admin: 01/14/18 06:03 Dose: 5 mg Miscellaneous Medication (Granisetron [Sancuso]) 1 each TD TH BERE Stop: 07/12/18 13:59 Last Admin: 01/13/18 16:50 Dose: Not Given Ondansetron HCl (Zofran) 4 mg IVP EDNOW ONE Stop: 01/13/18 11:47 Last Admin: 01/13/18 11:56 Dose: 4 mg Ondansetron HCl (Zofran) 4 mg IVP EDNOW ONE Stop: 01/13/18 12:27 Last Admin: 01/13/18 12:28 Dose: 4 mg Ondansetron HCl (Zofran) 4 mg IVP Q4HRS PRN PRN Reason: Nausea/Vomiting, Can't Take PO Stop: 07/12/18 13:53 Last Admin: 01/14/18 17:23 Dose: 4 mg Oxymetazoline HCl (Afrin Nasal [place]) 1 sprays EACHNARE BID [facility] Stop: 07/12/18 20:59 Last Admin: 01/16/18 09:17 Dose: 1 spray Pantoprazole Sodium (Protonix) 40 mg IVP DAILY BERE Stop: 07/12/18 13:59 Last Admin: 01/15/18 08:33 Dose: 40 mg Pantoprazole Sodium (Protonix) 40 mg PO DAILY BERE Stop: 07/15/18 08:59 Last Admin: 01/16/18 09:16 Dose: 40 mg Promethazine HCl (Phenergan) 6.25 - 12.5 mg IVP Q6HRS PRN PRN Reason: Nausea/Vomiting, Use 2nd Stop: 07/12/18 13:53 Last Admin: 01/15/18 15:08 Dose: 12.5 mg Rivaroxaban (Xarelto) 20 mg PO DAILY [facility] Stop: 07/13/18 08:59 Last Admin: 01/16/18 09:16 Dose: 20 mg Departure - Departure Disposition: [facility] Inpatient Acute Clinical Impression: Persistent vomiting in adult patient, Squamous cell carcinoma Condition: Fair
[2018-01-13 12:51] LABS: PLATELET COUNT 376 10^3/uL (150-400)
[2018-01-13] MEDS ORDERED: LORazepam 2 MG/ML INJ IVP ONE (13:05)
[2018-01-13] MEDS ORDERED: METOCLOPRAMIDE 10 MG/2 ML VIAL IVP ONE (13:06)
[2018-01-13] MEDS ORDERED: PROCHLORPERAZINE MALEATE 10 MG TAB PO PRN (13:52)
[2018-01-13] MEDS ORDERED: ONDANSETRON DISINTEGRATING 4 MG TAB PO PRN (13:54)
[2018-01-13] MEDS ORDERED: oxyCODONE IR 5 MG TAB PO PRN (13:54)
[2018-01-13] MEDS ORDERED: ONDANSETRON 4 MG/2 ML VIAL IVP PRN (13:54)
[2018-01-13] MEDS ORDERED: ACETAMINOPHEN 325 MG TAB PO PRN (13:54)
[2018-01-13] MEDS ORDERED: LORazepam 0.5 MG TAB PO PRN (13:54)
[2018-01-13] MEDS ORDERED: fentaNYL 75 MCG PATCH TD SCH (14:00)
[2018-01-13] MEDS ORDERED: GRANISETRON TD SCH (14:00)
[2018-01-13] MEDS ORDERED: PANTOPRAZOLE SODIUM 40 MG VIAL ONE (14:35)
[2018-01-13] MEDS: PANTOPRAZOLE SODIUM 40 MG VIAL IVP SCH (14:36)
[2018-01-13] MEDS: PROMETHAZINE HCL 25 MG/ML INJ IVP PRN (15:55)
[2018-01-13] MEDS: D5W 1/2 NS 1,000 ML IV SCH (15:59)
[2018-01-13] MEDS ORDERED: NS 500 ML IV ONE (16:09)
--- NOTE | 2018-01-13 16:37 | PDGENHP ---
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 Onset of vomiting 3 days ago, persistent since then. Unable to tolerate oral fluids or food, despite antiemetics. Not tolerating tube feeds well. Associated with generalized weakness and several falls. He has not hurt himself in the falls. No abdominal pain or fever. Last chemotherapy was 2 weeks ago. Afebrile, no chest pain, no sob. He was given Zofran and Reglan in the E.D. and feels better. He believes the Reglan helped. He does have throat pain and mild abd discomfort. no diarrhea. no abd distention. Past Medical/Surgical History: Squamous cell carcinoma VTE, left arm DVT chronic AC Tube Feeds G Tube placement Chronic Pain syndrome Social History: Oncologist: Dr. Padilla FmHx: non contributory Lab/Data: labs reviewed, unremarkable History Information - Allergies/Home Medication List Allergies/Adverse Reactions: No Known Allergies Allergy (Verified 01/13/18 11:30) Home Medications: HYDROmorphone HCL [Dilaudid 2 mg (*)] 4 mg PO Q4HRS PRN 11/15/17 [Last Taken 09/20] Prochlorperazine Maleate [Compazine 10mg (*)] 10 mg PO Q6HRS PRN 11/15/17 [Last Taken 01/13/18] guaiFENesin [Mucinex 600 MG (*)] 600 mg PO BID 11/19/17 [Last Taken 01/13/18] Granisetron [Sancuso] 1 each TD TH 01/13/18 [Last Taken 01/13/18] LORazepam [Ativan (*)] 1 mg PO BID PRN 01/13/18 [Last Taken 01/13/18] Omeprazole 40 mg PO DAILY 01/13/18 [Last Taken 01/13/18] Oxymetazoline HCl [Afrin Nasal [place] (OTC)] 1 spray EACHNARE BID 01/13/18 [Last Taken 01/13/18] Rivaroxaban [Xarelto 10mg (*)] 20 mg PO DAILY 01/13/18 [Last Taken 01/13/18] fentaNYL [Duragesic 75 MCG Patch (*)] 75 mcg TD Q72H 01/13/18 [Last Taken ] I have personally reviewed and updated: medical history, social history - Social History Smoking Status: Former smoker Review of Systems Review of Systems: ROS: 10pt was reviewed & negative except for what was stated in HPI & below Physical Exam Physical Exam: Temp Pulse Resp BP Pulse Ox 36.7 C 84 18 156/91 H 96 01/13/18 15:45 01/13/18 15:45 01/13/18 15:45 01/13/18 15:45 01/13/18 15:45 Constitutional: chronically ill appearing Eyes: PERRL, EOMI Ears, Nose, Mouth, Throat: dry mucous membranes Cardiovascular: regular rate and rhythym, No JVD, No edema Respiratory: no respiratory distress, no rales or rhonchi, clear to auscultation Gastrointestinal: normoactive bowel sounds, soft, non-tender abdomen Genitourinary: no bladder fullness Skin: warm Musculoskeletal: generalized weakness Neurologic: AAOx3 Psychiatric: interacting appropriately, not anxious, not encephalopathic, thought process linear Lymph, Heme, Immunologic: No petechiae Lab Data & Imaging Review 01/13/18 11:58 01/13/18 11:58 WBC 4.38 10^3/uL (3.80-9.50) 01/13/18 11:58 RBC 3.76 10^6/uL (4.40-6.38) L 01/13/18 11:58 Hgb 11.7 g/dL (13.7-17.5) L 01/13/18 11:58 Hct 34.4 % (40.0-51.0) L 01/13/18 11:58 MCV 91.5 fL (81.5-99.8) 01/13/18 11:58 MCH 31.1 pg (27.9-34.1) 01/13/18 11:58 MCHC 34.0 g/dL (32.4-36.7) 01/13/18 11:58 RDW 18.0 % (11.5-15.2) H 01/13/18 11:58 Plt Count 376 10^3/uL (150-400) 01/13/18 11:58 MPV 9.6 fL (8.7-11.7) 01/13/18 11:58 Neut % (Auto) Not Reported 01/13/18 11:58 Lymph % (Auto) Not Reported 01/13/18 11:58 [place] % (Auto) Not Reported 01/13/18 11:58 Eos % (Auto) Not Reported 01/13/18 11:58 Baso % (Auto) Not Reported 01/13/18 11:58 Nucleat RBC Rel Count 0.0 % (0.0-0.2) 01/13/18 11:58 Absolute Neuts (auto) Not Reported 01/13/18 11:58 Absolute Lymphs (auto) Not Reported 01/13/18 11:58 Absolute Monos (auto) Not Reported 01/13/18 11:58 Absolute Eos (auto) Not Reported 01/13/18 11:58 Absolute Basos (auto) Not Reported 01/13/18 11:58 Absolute Nucleated RBC 0.00 10^3/uL (0-0.01) 01/13/18 11:58 Immature Gran % Not Reported 01/13/18 11:58 Seg Neutrophils % 64 % 01/13/18 11:58 Band Neutrophils % 4 % 01/13/18 11:58 Lymphocytes % 13 % 01/13/18 11:58 Monocytes % 17 % 01/13/18 11:58 Eosinophils % 1 % 01/13/18 11:58 Basophils % 1 % 01/13/18 11:58 Immature Gran # Not Reported 01/13/18 11:58 Absolute Seg Neuts 2.80 10^/uL (1.70-6.50) 01/13/18 11:58 Absolute Band Neuts 0.18 10^3/uL (0.00-0.70) 01/13/18 11:58 Absolute Lymphocytes 0.57 10^3/uL (1.00-3.00) L 01/13/18 11:58 Absolute Monocytes 0.74 10^3/uL (0.30-0.80) 01/13/18 11:58 Absolute Eosinophils 0.04 10^3/uL (0.03-0.40) 01/13/18 11:58 Absolute Basophils 0.04 10^3/uL (0.02-0.10) 01/13/18 11:58 RBC/WBC/PLT Morphology NORMAL (NORMAL) 01/13/18 11:58 Platelet Estimate ADEQUATE (ADEQ) 01/13/18 11:58 Sodium 138 mEq/L (135-145) 01/13/18 11:58 Potassium 3.6 mEq/L (3.5-5.2) 01/13/18 11:58 Chloride 100 mEq/L (97-110) 01/13/18 11:58 Carbon Dioxide 23 mEq/l (22-31) 01/13/18 11:58 Anion Gap 15 mEq/L (8-16) 01/13/18 11:58 BUN 11 mg/dL (7-23) 01/13/18 11:58 Creatinine 0.6 mg/dL (0.7-1.3) L 01/13/18 11:58 Estimated GFR > 60 01/13/18 11:58 Glucose 98 mg/dL (70-100) 01/13/18 11:58 Calcium 9.5 mg/dL (8.5-10.4) 01/13/18 11:58 Total Bilirubin 0.5 mg/dL (0.1-1.4) D 01/13/18 11:58 Conjugated Bilirubin 0.5 mg/dL (0.0-0.5) 01/13/18 11:58 Unconjugated Bilirubin 0.0 mg/dL (0.0-1.1) 01/13/18 11:58 AST 18 IU/L (17-59) 01/13/18 11:58 ALT 30 IU/L (21-72) 01/13/18 11:58 Alkaline Phosphatase 73 IU/L (38-126) 01/13/18 11:58 Total Protein 7.2 g/dL (6.3-8.2) D 01/13/18 11:58 Albumin 3.9 g/dL (3.5-5.0) 01/13/18 11:58 Lipase 52 IU/L (23-300) 01/13/18 11:58 Assessment & Plan Assessment: Persistent vomiting in adult patient (Acute) Squamous cell carcinoma (Acute) #Nausea and Vomiting #Dehydration #Squamous cell carcinoma #VTE, left arm DVT #chronic AC #Tube Feeds via Gtube. He reports no dysphagia. He is able to swallow but unable to obtain sufficient nutrients #Chronic Pain syndrome #Generalized Weakness and recurrent falls Plan: Admit Give more IVF now Schedule Negro as it appears to have worked in the E.D. Antiemetics PRN Protonix Tube Feeds/Dietary consult pain mgmt home meds cont AC PT/OT
--- NOTE | 2018-01-13 20:24 | GCON ---
[f rep st] CONSULTATION INPATIENT ONCOLOGY CONSULTATION DATE OF CONSULTATION: 01/13/2018 REQUESTING PHYSICIAN: Dr. Suresh Steinberg. REASON FOR CONSULTATION: Nausea and vomiting in a patient with history of nasopharyngeal carcinoma. HISTORY OF PRESENT ILLNESS: The patient is a 57-year-old man with stage MARIPOSA nasopharyngeal squamous cell carcinoma. I see him in the outpatient setting and his case is well known to me. He presented in October while in [place] with a complaint of headache. An MRI revealed a 5.8 cm mass in the nasopharynx extending into the clivus and skull base. A PET scan revealed the same mass and also roosevelt ateral cervical adenopathy. A biopsy showed squamous cell carcinoma, which was EBV negative. In Nov, he moved to [place] and was started on therapy with radiation and weekly cisplatin. A G-tube was placed for enteral nutrition. He developed the typical mucositis and nausea associated with the treatment, which was completed 2 weeks ago. He was initially feeling better, but over the past yared ral days has developed worsening vomiting. This started in the mornings, but now is occurring throug hout the day. Of note, he is on Xarelto 20 mg daily for history of a PICC-associated DVT in his righ t arm. He has no manifestations of bleeding otherwise. PAST MEDICAL HISTORY: 1. Nasopharyngeal carcinoma, as described above. 2. Hypertension. CURRENT MEDICATIONS: At home include Xarelto 20 mg daily, fentanyl patch, oxycodone, Sancuso patch, and Protonix. ALLERGIES: No known drug allergies. FAMILY HISTORY: Noncontributory. SOCIAL HISTORY: He is a former smoker. Denies current alcohol use. Lives with his daughter. REVIEW OF SYSTEMS: Other than pertinent positives noted in HPI, a 14-point review of systems is nega tive. PHYSICAL EXAMINATION: VITAL SIGNS: Temperature 36.7, blood pressure 156/91, heart rate 84, oxygen s aturation 96% on room air. GENERAL: He was uncomfortable appearing, though no acute distress. EYES : Sclerae anicteric. OROPHARYNX: Notable for thick secretions and mild mucositis. NECK: There wa s no palpable adenopathy. LUNGS: Clear to auscultation bilaterally. CARDIAC: Regular rate and rhy thm. No murmurs, gallops, or rubs. ABDOMEN: Normoactive bowel sounds. Nontender. Nondistended. G-tube site was intact. There is no evidence of infection or leakage. EXTREMITIES: No edema. NEUR OLOGICAL: He was alert and oriented x3. Cranial nerves 2-12 are intact. Strength and sensation wer e normal. Gait was not tested. LABORATORY DATA: White count 4.38, hemoglobin 11.7, platelets of 376. His metabolic panel is normal . IMPRESSION: This is a 57-year-old man with a history of nasopharyngeal carcinoma, recently completed chemoradiotherapy. His nausea and vomiting could be delayed effect of his treatment, though would b e somewhat unusual to be getting worse at this late date. Another possibility is an intracranial hem orrhage, as he is on Xarelto and that can sometimes cause significant nausea. I did verify with him that he is taking the correct dose of Xarelto 20 mg daily. He does not appear to have an intra-abdom inal process. Another possibility is that there may be a treatment effect on the tumor that is causi ng further swelling and pain. RECOMMENDATIONS: 1. We will get a stat head CT without contrast to rule out intracranial hemorrhage. If hemorrhage i s noted we can check some coags to make sure there is no additional coagulopathy aside from his use o f Xarelto. 2. Would use IV antiemetics and hydration to improve his symptoms. 3. We can consider the addition of dexamethasone 4 mg twice daily, which may help to reduce swelling around the tumor and also provide some antinausea relief. 4. He does need to start the 1st of 3 cycles of cisplatin and 5-FU, though he will need to recover f rom this acute episode first. We can also give some consideration to substituting carboplatin instea d of cisplatin, given the problems he has been having with emesis. Thank you this consultation. We will continue to follow Mr. Myrick closely with you while he is in [facility]. /[id number]/MODL
[2018-01-13] MEDS: DEXAMETHASONE 4 MG/ML VIAL IVP SCH (21:09)
[2018-01-13] MEDS: guaiFENesin 600 MG TAB.ER PO SCH (21:09)
[2018-01-13] MEDS: OXYMETAZOLINE 30 ML NASAL SPRAY EACHNARE SCH (22:11)
[2018-01-13] MEDS: METOCLOPRAMIDE 10 MG/2 ML VIAL IVP SCH (22:50)
[2018-01-14 05:05] LABS: PLATELET COUNT 296 10^3/uL (150-400)
[2018-01-14] MEDS: METOCLOPRAMIDE 10 MG/2 ML VIAL IVP SCH (06:03)
--- NOTE | 2018-01-14 09:24 | SOAPPROG ---
SOAP Progress Note Assessment/Plan: Assessment: 1. Nasopharyngeal carcinoma, stage MARIPOSA, s/p chemo/RT 2. Nausea and vomiting 3. Anemia due to chemotherapy 4. PICC associated L arm DVT Clinically improved. No evidence of intracranial process. Plan: - continue dexamethasone 4 mg BID and Reglan q6h - would restart tube feeds today to make sure pt can tolerate them. this is the major source of nutrition - if symptoms controlled and tolerating tube feeds, can d/c to home with outpatient followup next week. He needs to start chemotherapy when able - continue Xarelto 20 mg daily for DVT 25 min spent w/ pt and in coordination of care. 01/14/18 09:22 01/14/18 09:23 Subjective: feeling better today. still w/ throat pain and mucus production. vomiting has resolved. Objective: exam: NAD thick secretions in mouth Lungs CTAB CV RRR no MGR Abd: +BS NT ND Ext: no edema Vital Signs Temp Pulse Resp BP Pulse Ox 37.0 C 49 L 18 135/80 H 96 01/14/18 07:36 01/14/18 07:36 01/14/18 07:36 01/14/18 07:36 01/14/18 07:36 Laboratory Results 01/14/18 04:42 01/14/18 04:42 01/13/18 01/14/18 01/15/18 05:59 05:59 05:59 Intake Total 1000 1459 Output Total 100 Balance 900 1459 ICD10 Worksheet Patient Problems: Problems Problem Status Onset Persistent vomiting in adult patient Acute Squamous cell carcinoma Acute Vomiting Acute
[2018-01-14] MEDS: DEXAMETHASONE 4 MG/ML VIAL IVP SCH ×2 (10:09→20:09)
[2018-01-14] MEDS: PANTOPRAZOLE SODIUM 40 MG VIAL IVP SCH (10:09)
[2018-01-14] MEDS: guaiFENesin 600 MG TAB.ER PO SCH ×2 (10:09→20:09)
[2018-01-14] MEDS: RIVAROXABAN 10 MG TAB PO SCH (10:09)
[2018-01-14] MEDS: OXYMETAZOLINE 30 ML NASAL SPRAY EACHNARE SCH ×2 (10:16→20:10)
[2018-01-14] MEDS ORDERED: METOCLOPRAMIDE 10 MG/2 ML VIAL IVP PRN (12:50)
--- NOTE | 2018-01-14 12:54 | HOSPPROG ---
Hospitalist Progress Note Assessment/Plan: #Nausea and Vomiting, improving #Dehydration, resolving #Squamous cell carcinoma #VTE, left arm DVT #chronic AC #Tube Feeds via Gtube. He reports no dysphagia. He is able to swallow but unable to obtain sufficient nutrients #Chronic Pain syndrome #Generalized Weakness and recurrent falls Plan: change to inpatient cont IVF Change Reglan to PRN Zofran and Phenergan as needed cont Dexamethasone restart tube feeds cont PPI Dietary consult pain mgmt home meds cont AC PT/OT Studies: Head CT - Subjective: starting to feel better. Last phernergan was last night. no cp or sob. afebrile. tube feeds have not yet been restarted Objective: Vital Signs Temp Pulse Resp BP Pulse Ox 37.2 C 45 L 14 137/77 H 94 01/14/18 11:25 01/14/18 11:25 01/14/18 11:25 01/14/18 11:25 01/14/18 11:25 Laboratory Results 01/14/18 04:42 01/14/18 04:42 01/13/18 01/14/18 01/15/18 05:59 05:59 05:59 Intake Total 1000 1459 Output Total 100 Balance 900 1459 - Physical Exam Constitutional: no apparent distress Eyes: PERRL, EOMI Ears, Nose, Mouth, Throat: moist mucous membranes Cardiovascular: regular rate and rhythym, No edema Respiratory: no respiratory distress, no rales or rhonchi, clear to auscultation Gastrointestinal: normoactive bowel sounds, soft, non-tender abdomen Skin: warm Neurologic: AAOx3 Psychiatric: interacting appropriately, not anxious, not encephalopathic Lymph, Heme, Immunologic: No petechiae ICD10 Worksheet Patient Problems: Problems Problem Status Onset Persistent vomiting in adult patient Acute Squamous cell carcinoma Acute Vomiting Acute
--- NOTE | 2018-01-14 16:04 | PDMN ---
Medical Necessity Medical necessity: Inpatient order 1427: patient transitioned to inpatient status per physician note and [facility] M-123 Dehydration (presented with persistent N /V and inability to tolerate p.o,, history of squamous cell carcinoma of the sinuses; dehydration and vomiting are resolving but will require LOS > 2midnights for ongoing IV hydration, IV steroids, prn antiemetics, initiation of tube feedings and monitoring of tolerance of same.)
--- NOTE | 2018-01-14 17:01 | ASMTCMCOM ---
CM Note CM Note Notes: Pt admitted for persistent vomiting x 3 days with a hx of squamous cell carcinoma of the sinuses. Pt lives with his dghtr. Spoke with BRIAN Hargrove, pt is anxious to discharge home. Per Delvin, pt requires tube feeds which he and his dghtr manage at home. Pt has been receiving chemo and radiation treatment. Per MD notes, pt has had recurrent falls. PT is recommending home with a front wheel walker, T[facility] is recommending outpt follow up and OT evals are pending. Anticipate pt will likely discharge home independently with family support. CM will continue to follow for potential needs. Current Discharge Plan: To be determined Date Signed: 01/14/2018 05:01 PM Electronically Signed By:Gabriela Covarrubias RN
[2018-01-14] MEDS: PROMETHAZINE HCL 25 MG/ML INJ IVP PRN (18:33)
[2018-01-14] MEDS: HYDROmorphONE/DILAUDID 2 MG TAB PO PRN (19:59)
[2018-01-14] MEDS: LORazepam 2 MG/ML INJ IVP PRN (21:20)
[2018-01-15] MEDS: HYDROmorphONE/DILAUDID 2 MG TAB PO PRN ×3 (04:49→20:55)
[2018-01-15] MEDS: D5W 1/2 NS 1,000 ML IV SCH (04:50)
[2018-01-15 05:29] LABS: PLATELET COUNT 325 10^3/uL (150-400)
[2018-01-15] MEDS: RIVAROXABAN 10 MG TAB PO SCH (08:33)
[2018-01-15] MEDS: PANTOPRAZOLE SODIUM 40 MG VIAL IVP SCH (08:33)
[2018-01-15] MEDS: DEXAMETHASONE 4 MG/ML VIAL IVP SCH ×2 (08:33→20:54)
[2018-01-15] MEDS: guaiFENesin 600 MG TAB.ER PO SCH ×2 (08:34→20:55)
[2018-01-15] MEDS: OXYMETAZOLINE 30 ML NASAL SPRAY EACHNARE SCH ×2 (08:40→20:55)
[2018-01-15] MEDS: PROMETHAZINE HCL 25 MG/ML INJ IVP PRN ×2 (08:45→15:08)
--- NOTE | 2018-01-15 10:11 | SOAPPROG ---
SOAP Progress Note Assessment/Plan: Assessment: SOAP Progress Note Assessment/Plan: Assessment: 1. Nasopharyngeal carcinoma, stage MARIPOSA, s/p chemo/RT 2. Nausea and vomiting 3. Anemia due to chemotherapy 4. PICC associated L arm DVT 5. Mucositis/thrush 6. Pain secondary to #5. Plan: - continue dexamethasone 4 mg BID. Has phenergan and reglan ordered prn. Feels phenergan works best. - tube feeds resumed today. - start liquid diflucan - continue Xarelto 20 mg daily for DVT 01/15/18 10:28 Subjective: has less nausea. phenergain helps. continues to have significant pain in his throat Objective: Vital Signs Temp Pulse Resp BP Pulse Ox 37.0 C 51 L 19 154/89 H 95 01/15/18 08:46 01/15/18 08:46 01/15/18 08:46 01/15/18 08:46 01/15/18 08:46 Laboratory Results 01/15/18 04:50 01/14/18 04:42 01/14/18 01/15/18 01/16/18 05:59 05:59 05:59 Intake Total 1000 2649 500 Output Total 100 1000 Balance 900 1649 500 Physical Exam - Physical Exam General Appearance: alert, mild distress EENT: other (has mucositis in posterior pharynx with ? thrush) Neck: supple Respiratory: lungs clear Abdomen: soft ICD10 Worksheet Patient Problems: Problems Problem Status Onset Persistent vomiting in adult patient Acute Squamous cell carcinoma Acute Vomiting Acute
[2018-01-15] MEDS: FLUCONAZOLE 40 MG/ML UDSYR PO SCH (12:00)
--- NOTE | 2018-01-15 13:45 | HOSPPROG ---
Hospitalist Progress Note Assessment/Plan: #Nausea and Vomiting, improving #Dehydration, improving #Squamous cell carcinoma #VTE, left arm DVT #chronic AC #Tube Feeds via Gtube. He reports no dysphagia. He is able to swallow but unable to obtain sufficient nutrients #Chronic Pain syndrome #Generalized Weakness and recurrent falls #Thrush #Bradycardia, sinus bradycardia on telemetry, will check EKG Plan: continue inpatient stop IVF tolerating Tube Feeds, increase Free Water to 250ml q 4hrs cont PRN antiemetics cont Dexamethasone cont PPI Dietary consult pain mgmt home meds cont AC PT/OT Subjective: last emisis last night. no cp or sob. Still on IVF Objective: Vital Signs Temp Pulse Resp BP Pulse Ox 36.8 C 55 L 14 113/66 93 01/15/18 11:29 01/15/18 11:29 01/15/18 11:29 01/15/18 11:29 01/15/18 11:29 Laboratory Results 01/15/18 04:50 01/14/18 04:42 01/14/18 01/15/18 01/16/18 05:59 05:59 05:59 Intake Total 1000 2649 500 Output Total 100 1000 Balance 900 1649 500 - Physical Exam Constitutional: no apparent distress, appears nourished Eyes: PERRL, EOMI Ears, Nose, Mouth, Throat: moist mucous membranes, hearing normal Cardiovascular: regular rate and rhythym, No edema Respiratory: no respiratory distress, no rales or rhonchi, clear to auscultation Gastrointestinal: normoactive bowel sounds, soft, non-tender abdomen Genitourinary: no bladder fullness Skin: warm Neurologic: AAOx3 Psychiatric: interacting appropriately, not anxious, not encephalopathic Lymph, Heme, Immunologic: No petechiae ICD10 Worksheet Patient Problems: Problems Problem Status Onset Persistent vomiting in adult patient Acute Squamous cell carcinoma Acute Vomiting Acute
[2018-01-15] MEDS: LORazepam 2 MG/ML INJ IVP PRN (15:22)
--- NOTE | 2018-01-15 17:23 | CPEKG ---
Heart Rate: 44 RR Interval: 1364 P-R Interval: 180 QRSD Interval: 98 QT Interval: 520 QTC Interval: 445 P [place]: 46 QRS [place]: 52 T Wave [place]: 52 EKG Severity - OTHERWISE NORMAL ECG - EKG Impression: SINUS BRADYCARDIA Electronically Signed By: Jerrica Adams 15-Jan-2018 19:55:50
[2018-01-16] MEDS: LORazepam 2 MG/ML INJ IVP PRN ×2 (01:36→09:23)
[2018-01-16 05:21] LABS: PLATELET COUNT 345 10^3/uL (150-400)
[2018-01-16] MEDS ORDERED: PANTOPRAZOLE SODIUM 40 MG TAB PO SCH (09:00)
[2018-01-16] MEDS: FLUCONAZOLE 40 MG/ML UDSYR PO SCH (09:16)
[2018-01-16] MEDS: guaiFENesin 600 MG TAB.ER PO SCH (09:16)
[2018-01-16] MEDS: DEXAMETHASONE 4 MG/ML VIAL IVP SCH (09:16)
[2018-01-16] MEDS: RIVAROXABAN 10 MG TAB PO SCH (09:16)
[2018-01-16] MEDS: OXYMETAZOLINE 30 ML NASAL SPRAY EACHNARE SCH (09:17)
[2018-01-16] MEDS: HYDROmorphONE/DILAUDID 2 MG TAB PO PRN (09:23)
[2018-01-16 11:15] VITALS: BP 131/85
--- NOTE | 2018-01-16 12:21 | PDDCSUM ---
Discharge Summary Discharge Summary: 57 yo male with hx of squamous cell carcinoma admitted with Nausea, vomiting, and dehydration. Started on IVF, tube feeds held, scheduled antiemetics. Now better. Off IVF. Tolerating tube feeds. Free water flushes increased. On PRN meds. See below. Of note, Phenergan appears to cause bradycardia in this patient. He will f/u with Oncology next week. #Nausea and Vomiting, resolved -Zofran and Ativan PRN #Dehydration, resolved #Squamous cell carcinoma #VTE, left arm DVT #chronic AC #Tube Feeds via Gtube. He reports no dysphagia. He is able to swallow but unable to obtain sufficient nutrients -tolerating well #Chronic Pain syndrome, no changes to home regimen #Generalized Weakness and recurrent falls #Thrush #Bradycardia, sinus bradycardia on EKG. Better after stopping Phenergan Exam: VSS NAD AAO x3 RRR CTA B S/NT/ND Meds: See med rec f/u: with onc next week total time spent on d/c is 35 mins
--- NOTE | 2018-01-16 13:50 | ASMTCMCOM ---
CM Note CM Note Notes: Pt to DC today with no needs. Date Signed: 01/16/2018 01:49 PM Electronically Signed By:Bertha Guevara LCSW
== END 2018-01-16 14:54 | disposition home or self-care (01) | DRG 392 ==
LOC: OBSVTOIN 12:46 → INTOOBSV 12:46 → F1N 15:42
PROVIDERS: ADMIT Family Medicine; ATTEND Family Medicine
DX: R11.2 Nausea with vomiting, unspecified (principal); E86.0 Dehydration; D64.81 Anemia due to antineoplastic chemotherapy; R00.1 Bradycardia, unspecified; T42.6X5A Adverse effect of other antiepileptic and sedative-hypnotic drugs, initial encounter; K12.30 Oral mucositis (ulcerative), unspecified; B37.0 Candidal stomatitis; I10 Essential (primary) hypertension; Z87.891 Personal history of nicotine dependence; Z91.81 History of falling; Z85.818 Personal history of malignant neoplasm of other sites of lip, oral cavity, and pharynx; Z86.718 Personal history of other venous thrombosis and embolism; Z79.01 Long term (current) use of anticoagulants
CPT/HCPCS: 92610-GN; 96374; 97161-GP; G0378; J1100; J2060; J2405; J2550; J2765

== ENCOUNTER → 2018-01-25 | Day surgery (SDC) | payer BC ==
[~2018-01-25] MED LIST changes: -FLUMAZENIL 0.5 MG/5 ML MDV IVP PRN; +LIDOCAINE 1% 300 MG/30 ML SDV ONE; -MEPERIDINE 25 MG/ML SYR IVP PRN; -MIDAZOLAM 2 MG/2 ML VIAL IVP PRN; -NALOXONE HCL 0.4 MG/ML INJ IVP PRN; -NS 1,000 ML IV SCH; -fentaNYL 100 MCG/2 ML INJ IVP PRN
--- NOTE | 2018-01-25 16:39 | PDRADPN ---
Radiology Procedure Note Date of Procedure: 01/25/18 Radiologist: Marcio Bunch Anesthesia: Local (Specify) Pre-op Diagnosis: Ca Post-op Diagnosis: same Indication: chemo Procedure: RUE PICC Finding(s): tip of SL RUE 45cm PICC at mid SVC. ok to use. Inf/Abcess present in the surg proc area at time of surgery?: No EBL: Minimal Complications: none
== END | disposition home or self-care (01) ==
LOC: FIMAGING 14:08
PROVIDERS: ATTEND Internal Medicine Hematology & Oncology
PROC: 02HV33Z Insertion of Infusion Device into Superior Vena Cava, Percutaneous Approach (ICD-10-PCS; principal; 2018-01-25)
PROC: B5181ZA Fluoroscopy of Superior Vena Cava using Low Osmolar Contrast, Guidance (ICD-10-PCS; principal; 2018-01-25)
DX: C76.0 Malignant neoplasm of head, face and neck (principal); Z86.718 Personal history of other venous thrombosis and embolism
CPT/HCPCS: 36569; 77001; C1751

== ENCOUNTER → 2018-02-25 | Outpatient (CLI) | payer BC | LOC: FIMAGING 14:09 | PROVIDERS: ATTEND Nurse Practitioner | DX: M79.661 Pain in right lower leg (principal); M79.89 Other specified soft tissue disorders ==

== ENCOUNTER → 2018-03-23 | Day surgery (SDC) | payer BC ==
--- NOTE | 2018-03-23 09:04 | PDRADPN ---
Radiology Procedure Note Date of Procedure: 03/23/18 Radiologist: Marcio Bunch Pre-op Diagnosis: dysfunction of RUE PICC Post-op Diagnosis: same Indication: tx Procedure: over the wire PICC exchange Finding(s): New SL 45cm PICC was placed over wire. New PICC aspirates and flushes well. Ok to use. Inf/Abcess present in the surg proc area at time of surgery?: No Complications: none
== END | disposition home or self-care (01) ==
LOC: FIMAGING 08:02
PROVIDERS: ATTEND Internal Medicine Hematology & Oncology
PROC: 05PY33Z Removal of Infusion Device from Upper Vein, Percutaneous Approach (ICD-10-PCS; principal; 2018-03-23)
PROC: 02HV03Z Insertion of Infusion Device into Superior Vena Cava, Open Approach (ICD-10-PCS; principal; 2018-03-23)
PROC: B5181ZA Fluoroscopy of Superior Vena Cava using Low Osmolar Contrast, Guidance (ICD-10-PCS; principal; 2018-03-23)
DX: T82.594A Other mechanical complication of infusion catheter, initial encounter (principal); C11.9 Malignant neoplasm of nasopharynx, unspecified

== ENCOUNTER 2018-03-27 22:44 | Inpatient (IN) | payer BC ==
[2018-03-27] MEDS ORDERED: NS 1,000 ML IV ONE ×2 (22:57→23:11)
[2018-03-27] MEDS ORDERED: ONDANSETRON 4 MG/2 ML VIAL IVP ONE (22:57)
--- NOTE | 2018-03-27 22:58 | EDPHY ---
H & P Stated Complaint: CHEMO SICKNESS,N/V/CAN'T GIANNI TUBE FEEDS OR ORAL PILLS Time Seen by Provider: 03/27/18 22:58 HPI/ROS: HPI CHIEF COMPLAINT: Nausea, vomiting, unable to tolerate p.o., chemotherapy HISTORY OF PRESENT ILLNESS: 57-year-old male, currently being treated for squamous cell carcinoma of the head and neck, he presents emergency room with 2 days of vomiting. Generalized weakness. Chills. But no fever. He has a right arm PICC line where he gets infused chemotherapy is currently getting an infusion at this time and started at on Wednesday. The infusion goes for [address] Lackey is his oncologist. Patient states for the past 2 days he has been unable to tolerate his medications or feeds. He typically gets feeds through his PEG tube. However for the past 2 days they have been trying to feed him to his PEG tube any vomits it up. Additionally has been unable to tolerate his pain medicine nausea medicine or blood thinner Xarelto. He presents emergency room stating he feels globally weak, ongoing nausea with vomiting. No fever. Chills present. Generalized weakness. Past Medical History: History of squamous cell carcinoma, chronic pain syndrome , currently getting chemotherapy, on Xarelto Past Surgical History: Peg tube, right arm PICC line Social History: Denies daily use of drugs alcohol tobacco. Family History: Noncontributory ROS REVIEW OF SYSTEMS: A comprehensive 10 point review of systems is otherwise negative aside from elements mentioned in the history of present illness. Exam Constitutional nontoxic appearing however fatigue, triage nursing summary reviewed, vital signs reviewed, awake/alert. Eyes normal conjunctivae and sclera, EOMI, PERRLA. HENT normal inspection, atraumatic, moist mucus membranes, no epistaxis, neck supple/ no meningismus, no raccoon eyes. Respiratory clear to auscultation bilaterally, normal breath sounds, no respiratory distress, no wheezing. Cardiovascular rate normal, regular rhythm, no murmur, no edema, distal pulses normal. Gastrointestinal soft, non-tender, no rebound, no guarding, normal bowel sounds, no distension, no pulsatile mass. Genitourinary no CVA tenderness. Musculoskeletal no midline vertebral tenderness, full range of motion, no calf swelling, no tenderness of extremities, no meningismus, good pulses, neurovascularly intact. Skin pink, warm, & dry, no rash, skin atraumatic. Neurologic awake, alert and oriented x 3, AAOx3, moves all 4 extremities equally, motor intact, sensory intact, CN II-XII intact, normal cerebellar, normal vision, normal speech. Psychiatric normal mood/affect. Heme/Lymph/Immune no lymphadenopathy. Differential Diagnosis: Includes but is not limited to in a particular order dehydration, electrolyte disturbance, infection, sepsis, nausea vomiting from chemotherapy Medical Decision Making: Plan for this patient IV establishment, IV fluid bolus 2 L normal saline, IV Zofran 4 mg for nausea IV Dilaudid 1 mg for pain control. Check basic blood work, blood cultures, lactic acid and re-evaluate. Chest x-ray and KUB. Re-evaluation: 1216AM: Patient feeling better after 1 mg IV Dilaudid 4 mg IV Zofran. IV fluids. Blood work, x-ray and KUB reviewed. No evidence of bowel obstruction. Normal bowel gas pattern. Peg tube appears to be in appropriate position. Due the patient's generalized weakness, nausea vomiting inability tolerate tube feeds or meds and currently actively getting chemotherapy will admit for observation for nausea vomiting and dehydration generalized weakness. I will also touch base with Dr. Padilla. Spoke with the hospitalist service: Dr. De Dios, who agrees to admit. Source: Patient - Personal History Current Tetanus Diphtheria and Acellular Pertussis (TDAP): Yes - Medical/Surgical History Hx Asthma: No Hx Chronic Respiratory Disease: No Hx Diabetes: No Hx Cardiac Disease: No Hx Renal Disease: No Hx Cirrhosis: No Hx Alcoholism: No Hx HIV/AIDS: No Hx Splenectomy or Spleen Trauma: No Other PMH: squamous cell carcinoma head and neck, HTN, G tube placed this year - Social History Smoking Status: Former smoker Constitutional: Initial Vital Signs Temperature (C) 37.1 C 03/27/18 22:53 Heart Rate 74 03/27/18 22:53 Respiratory Rate 16 03/27/18 22:53 Blood Pressure 150/109 H 03/27/18 22:53 O2 Sat (%) 96 03/27/18 22:53 O2 Delivery Mode Room Air Allergies/Adverse Reactions: No Known Allergies Allergy (Verified 01/13/18 11:30) Home Medications: Medication Instructions Recorded HYDROmorphone HCL [Dilaudid 2 mg 4 mg PO Q4-6PRN PRN 11/15/17 (*)] Prochlorperazine Maleate 10 mg PO Q6HRS PRN 11/15/17 [Compazine 10mg (*)] LORazepam [Ativan (*)] 1 mg PO BID 01/13/18 Omeprazole 40 mg PO DAILY 01/13/18 Rivaroxaban [Xarelto 10mg (*)] 20 mg PO DAILY 01/13/18 Ondansetron HCl [Zofran] 4 - 8 mg PO TID PRN #40 tablet 01/16/18 Medical Decision Making - Data Points Laboratory Results: Laboratory Results 03/27/18 23:10 03/27/18 23:10 Medications Given: Hydromorphone HCl (Dilaudid) 0.5 - 1 mg IVP Q4HRS PRN PRN Reason: Pain, Severe Unable to Take PO Stop: 04/07/18 00:40 Last Admin: 03/29/18 02:43 Dose: 1 mg Sodium Chloride (Ns) 1,000 mls @ 100 mls/hr IV CONT BERE Stop: 09/24/18 00:44 Last Admin: 03/28/18 22:34 Dose: 1,000 mls Lorazepam (Ativan Injection) 0.5 - 1 mg IVP Q8HRS PRN PRN Reason: Anxiety, Unable to Take PO Stop: 09/24/18 00:40 Last Admin: 03/28/18 22:34 Dose: 1 mg Ondansetron HCl (Zofran) 4 mg IVP Q4HRS PRN PRN Reason: Nausea/Vomiting, Can't Take PO Stop: 09/24/18 00:40 Last Admin: 03/28/18 08:34 Dose: 4 mg Promethazine HCl (Phenergan) 6.25 - 12.5 mg IVP Q6HRS PRN PRN Reason: Nausea/Vomiting, Use 2nd Stop: 09/24/18 00:40 Last Admin: 03/28/18 13:16 Dose: 12.5 mg Rivaroxaban (Xarelto) 20 mg PO DAILY BERE Stop: 09/24/18 14:29 Last Admin: 03/28/18 22:36 Dose: 20 mg Discontinued Medications Hydromorphone HCl (Dilaudid) 1 mg IVP EDNOW ONE Stop: 03/27/18 23:12 Last Admin: 03/27/18 23:21 Dose: 1 mg Hydromorphone HCl (Dilaudid) 1 mg IVP EDNOW ONE Stop: 03/28/18 00:20 Last Admin: 03/28/18 00:20 Dose: 1 mg Sodium Chloride (Ns) 1,000 mls @ 0 mls/hr IV EDNOW ONE; Wide Open PRN Reason: Protocol Stop: 03/27/18 22:58 Last Admin: 03/27/18 23:21 Dose: 1,000 mls Sodium Chloride (Ns) 1,000 mls @ 0 mls/hr IV EDNOW ONE; Wide Open PRN Reason: Protocol Stop: 03/27/18 23:12 Last Admin: 03/27/18 23:22 Dose: 1,000 mls Ondansetron HCl (Zofran) 4 mg IVP EDNOW ONE Stop: 03/27/18 22:58 Last Admin: 03/27/18 23:21 Dose: 4 mg Departure - Departure Disposition: [facility] Acute Clinical Impression: Dehydration, Generalized weakness Nausea and vomiting Qualifiers: Vomiting type: unspecified Vomiting Intractability: non-intractable Qualified Code(s): R11.2 - Nausea with vomiting, unspecified Condition: Fair
[2018-03-27] MEDS ORDERED: HYDROmorphONE/DILAUDID 2 MG/ML INJ IVP ONE (23:11)
[2018-03-27 23:21] LABS: PLATELET COUNT 264 10^3/uL (150-400)
[2018-03-27 23:29] LABS: INR 1.14 (0.83-1.16); PROTIME(PATIENT) 14.8 SEC (12.0-15.0)
[2018-03-28] MEDS ORDERED: HYDROmorphONE/DILAUDID 1 MG/ML INJ ONE (00:17)
[2018-03-28] MEDS ORDERED: HYDROmorphONE/DILAUDID 1 MG/ML INJ IVP ONE (00:19)
[2018-03-28] MEDS ORDERED: HYDROCODONE/APAP 5/325 TAB PO PRN (00:41)
[2018-03-28] MEDS ORDERED: ACETAMINOPHEN 325 MG TAB PO PRN (00:41)
[2018-03-28] MEDS ORDERED: D5W 1/2 NS W/ 20 KCl/L 1,000 ML IV SCH (00:45)
--- NOTE | 2018-03-28 02:30 | PDGENHP ---
History and Physical - Chief Complaint Nausea and vomiting - History of Present Illness Source-patient provides history appears reliable. EMR was reviewed and case discussed with ED provider. 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 Patient started a chemotherapy a continuous infusion through his PICC line on 2 days ago when symptoms started. Patient has been unable to keep down his 2 feeds. He is also noted that his in pills came back up in his emesis. He denies any hematemesis or biliary emesis. Patient denies any diarrhea. He is unsure of when his last bowel movement is as he has been on tube feeds but he states that he is passing flatus. He reports some abdominal muscle cramping related to vomiting but denies any abdominal distention or pain. Patient denies any fevers. No cough, shortness of breath, chest pain, dysuria or hematuria. History Information - Allergies/Home Medication List Allergies/Adverse Reactions: No Known Allergies Allergy (Verified 01/13/18 11:30) Home Medications: HYDROmorphone HCL [Dilaudid 2 mg (*)] 4 mg PO Q4HRS PRN 11/15/17 [Last Taken 09/20] Prochlorperazine Maleate [Compazine 10mg (*)] 10 mg PO Q6HRS PRN 11/15/17 [Last Taken 01/13/18] guaiFENesin [Mucinex 600 MG (*)] 600 mg PO BID 11/19/17 [Last Taken 01/13/18] Granisetron [[place]] 1 each TD TH 01/13/18 [Last Taken 01/13/18] LORazepam [Ativan (*)] 1 mg PO BID PRN 01/13/18 [Last Taken 01/13/18] Omeprazole 40 mg PO DAILY 01/13/18 [Last Taken 01/13/18] Oxymetazoline HCl [Afrin Nasal [place]] 1 spray EACHNARE BID 01/13/18 [Last Taken 01/13/18] Rivaroxaban [Xarelto 10mg (*)] 20 mg PO DAILY 01/13/18 [Last Taken 01/13/18] I have personally reviewed and updated: family history, medical history, social history, surgical history - Past Medical History Additional medical history: 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 HTN., chronic anticoagulation with Xarelto. - Surgical History Additional surgical history: PICC placement, peg tube - Family History Additional family history: Mother, father, brother all with history of cancer non squamous cell but patient does not elaborate. - Social History Smoking Status: Former smoker Tobacco Use: Chew (Patient reports he quit chewing.) Alcohol Use: None Drug Use: None Additional social history: Patient is . He moved from [place] at the beginning of the year. Cor status-full. Review of Systems Review of Systems: ROS: 10pt was reviewed & negative except for what was stated in HPI & below Constitutional: Reports: chills, weakness (Generalized weakness). Denies: fever EENMT: Reports: mouth pain (Chronic related to cancer), nose congestion ( Chronic related to cancer). Denies: blurred vision, double vision, sore throat Cardiac: Reports: no symptoms Respiratory: Reports: no symptoms Gastrointestinal: Reports: vomitting, abdominal pain (Muscle pain with nausea vomiting.). Denies: black stools, abdominal distention, diarrhea, nausea Genitourinary: Denies: dysuria, hematuria Muscolosketal: Reports: other (Chronic head and neck pain related to cancer.) Skin: Reports: no symptoms Neurological: Reports: no symptoms Hematologic/Lymphatic: Reports: no symptoms Physical Exam Physical Exam: Selected Entries 03/27/18 22:53 Blood Pressure Automatic Method Heart Rate 74 Respiratory 16 Rate O2 Sat (%) 96 Temperature (C) 37.1 C Blood Pressure 150/109 H Mean Arterial 122 H Pressure (MAP) O2 Delivery Room Air Mode Temperature Oral Source Temp Pulse Resp BP Pulse Ox 37.1 C 61 14 146/92 H 97 03/27/18 22:53 03/28/18 00:00 03/28/18 00:00 03/28/18 00:00 03/28/18 00:00 Constitutional: no apparent distress, chronically ill appearing, other (NAD. Adult gentleman is lying quietly in bed. Wakes easily to name.) Eyes: PERRL (Limited exam as patient is trying to sleep.), EOMI, No scleral injection Ears, Nose, Mouth, Throat: oral thrush, poor dentition (Some Absent dentition, remainder in fair to pork repair.), dry mucous membranes Cardiovascular: regular rate and rhythym, no murmur, rub, or gallop, pulses symmetric bilaterally, No edema Peripheral Pulses: 2+: dorsalis-pedis (R), dorsalis-pedis (L) Respiratory: no respiratory distress, no rales or rhonchi, clear to auscultation , reduced air movement Gastrointestinal: soft, non-tender abdomen, no palpable masses, other ( Hypoactive bowel sounds in all quadrants.), No tenderness, No guarding, No rebound, No distension Genitourinary: no bladder tenderness, No bernabe in urethra Skin: warm, normal color, no rashes or abrasions Musculoskeletal: generalized weakness (Limited exam as patient is lying in bed trying to sleep. He is able to move his extremities while lying in bed.) Neurologic: AAOx3, other (Nonfocal exam.), No facial droop Psychiatric: interacting appropriately, not anxious, not encephalopathic, thought process linear, flat affect Lab Data & Imaging Review 03/27/18 23:10 03/27/18 23:10 WBC 7.56 10^3/uL (3.80-9.50) 03/27/18 23:10 RBC 4.07 10^6/uL (4.40-6.38) L 03/27/18 23:10 Hgb 13.3 g/dL (13.7-17.5) L 03/27/18 23:10 Hct 38.0 % (40.0-51.0) L 03/27/18 23:10 MCV 93.4 fL (81.5-99.8) 03/27/18 23:10 MCH 32.7 pg (27.9-34.1) 03/27/18 23:10 MCHC 35.0 g/dL (32.4-36.7) 03/27/18 23:10 RDW 14.0 % (11.5-15.2) 03/27/18 23:10 Plt Count 264 10^3/uL (150-400) 03/27/18 23:10 MPV 10.3 fL (8.7-11.7) 03/27/18 23:10 Neut % (Auto) 75.9 % (39.3-74.2) H 03/27/18 23:10 Lymph % (Auto) 7.8 % (15.0-45.0) L 03/27/18 23:10 [place] % (Auto) 15.1 % (4.5-13.0) H 03/27/18 23:10 Eos % (Auto) 0.3 % (0.6-7.6) L 03/27/18 23:10 Baso % (Auto) 0.5 % (0.3-1.7) 03/27/18 23:10 Nucleat RBC Rel Count 0.0 % (0.0-0.2) 03/27/18 23:10 Absolute Neuts (auto) 5.74 10^3/uL (1.70-6.50) 03/27/18 23:10 Absolute Lymphs (auto) 0.59 10^3/uL (1.00-3.00) L 03/27/18 23:10 Absolute Monos (auto) 1.14 10^3/uL (0.30-0.80) H 03/27/18 23:10 Absolute Eos (auto) 0.02 10^3/uL (0.03-0.40) L 03/27/18 23:10 Absolute Basos (auto) 0.04 10^3/uL (0.02-0.10) 03/27/18 23:10 Absolute Nucleated RBC 0.00 10^3/uL (0-0.01) 03/27/18 23:10 Immature Gran % 0.4 % (0.0-1.1) 03/27/18 23:10 Immature Gran # 0.03 10^3/uL (0.00-0.10) 03/27/18 23:10 RBC/WBC/PLT Morphology TNP 03/27/18 23:10 Platelet Estimate TNP 03/27/18 23:10 PT 14.8 SEC (12.0-15.0) 03/27/18 23:10 INR 1.14 (0.83-1.16) 03/27/18 23:10 APTT 28.3 SEC (23.0-38.0) 03/27/18 23:10 VBG Lactic Acid 1.2 mmol/L (0.7-2.1) 03/27/18 23:10 Sodium 137 mEq/L (135-145) 03/27/18 23:10 Potassium 3.5 mEq/L (3.3-5.0) 03/27/18 23:10 Chloride 103 mEq/L (97-110) 03/27/18 23:10 Carbon Dioxide 19 mEq/l (22-31) L 03/27/18 23:10 Anion Gap 15 mEq/L (8-16) 03/27/18 23:10 BUN 27 mg/dL (7-23) H 03/27/18 23:10 Creatinine 0.6 mg/dL (0.7-1.3) L 03/27/18 23:10 Estimated GFR > 60 03/27/18 23:10 Glucose 113 mg/dL (70-100) H 03/27/18 23:10 Calcium 9.8 mg/dL (8.5-10.4) 03/27/18 23:10 Total Bilirubin 1.0 mg/dL (0.1-1.4) 03/27/18 23:10 Conjugated Bilirubin 0.4 mg/dL (0.0-0.5) 03/27/18 23:10 Unconjugated Bilirubin 0.6 mg/dL (0.0-1.1) 03/27/18 23:10 AST 22 IU/L (17-59) 03/27/18 23:10 ALT 33 IU/L (21-72) 03/27/18 23:10 Alkaline Phosphatase 63 IU/L (38-126) 03/27/18 23:10 Total Protein 7.6 g/dL (6.3-8.2) 03/27/18 23:10 Albumin 4.6 g/dL (3.5-5.0) 03/27/18 23:10 Lipase 160 IU/L (23-300) 03/27/18 23:10 Imaging Review: History: Nausea and vomiting. Nasopharyngeal cancer. Recent chemotherapy. Findings: There are no significantly dilated loops of bowel. No masses are seen or significant calcifications. A gastric tube is projected in the left upper abdomen. There is compression of L2 segment. Impression: 1. No significantly dilated loops of bowel. 2. G-tube appears to be in place positioned in the gastric fundus. 3. Compression of L2 segment. Portable upright chest x-ray 2342 hours History: Nasopharyngeal cancer. Nausea and vomiting. Recent chemotherapy administration. Findings: Heart size and pulmonary vasculature are normal. PICC line is seen from lateral approach with tip in the SVC. There is no consolidation, effusion, or pneumothorax. Rounded nodule projected right mid to lower lung laterally could represent nipple shadow versus pulmonary nodule. The remainder the lungs are clear. Mild hypertrophic osteophytes are noted mid to lower thoracic spine. Impression: 1. No active cardiopulmonary disease seen. 2. Focal nodule right mid to lower lung laterally could just represent nipple shadow. However, follow-up chest x-ray possibly with nipple marker is recommended at some point to rule out possible nodule. 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 Nausea and vomiting (Acute) - p.r.n. Zofran and Phenergan. At this time patient 's symptoms appeared to be resolving. No evidence of infectious process and is likely related to patient's current chemotherapy infusion. Dehydration (Acute) - status post bolus in the emergency department. Continue with IV fluid hydration continuously overnight. Generalized weakness (Acute) - likely related to dehydration and it chemotherapy. Continue with IV fluid hydration the and supportive care. Squamous cell carcinoma - patient's nausea vomiting symptoms have improved. Unless patient's symptoms become uncontrollable despite multiple medications and will and not make any adjustments.Continue with patient's infusion and defer any adjustments to Oncology in the morning. Anemia - likely of chronic kidney disease. H/H is best it has been compared to previous lab studies but could be some component of hemoconcentration in setting of dehydration. No evidence of active bleeding. Continue IVF hydration overnight and monitor in AM. Benign essential hypertension-patient is no longer on any medications per his med rec. Will plan to monitor blood pressures closely but at this time they are acceptable. FEN - continue with IV fluids on normal saline for supplementation until patient 's tube feeds can be resume. Electrolyte monitoring and replacement if needed. PPX-patient is on Xarelto and med recs available plan to resume. SCDs at this time. Cor status-is full. Disposition-patient admitted observation status to the medical floor for additional IV fluid hydration, antiemetics and laboratory monitoring. Consult-Oncology notified from the emergency department regarding patient's admission. They did not advise to hold or removed patient's continuous chemotherapy infusion at this time.
[2018-03-28] MEDS: HYDROmorphONE/DILAUDID 1 MG/ML INJ IVP PRN ×2 (03:17→10:54)
[2018-03-28] MEDS: LORazepam 2 MG/ML INJ IVP PRN ×2 (03:18→22:34)
[2018-03-28] MEDS: NS 1,000 ML IV SCH ×3 (03:19→22:34)
[2018-03-28 05:15] LABS: PLATELET COUNT 192 10^3/uL (150-400)
[2018-03-28] MEDS: ONDANSETRON 4 MG/2 ML VIAL IVP PRN (08:34)
[2018-03-28] MEDS: PROMETHAZINE HCL 25 MG/ML INJ IVP PRN (13:16)
--- NOTE | 2018-03-28 14:03 | ASMTCMCOM ---
CM Note CM Note Notes: Chart reviewed. Patient admitted through ED with N/V and dehydration s/p chemotherapy. He has a PICC and g tube. Discharge needs unclear at this time. CM to follow. Plan: TBD Date Signed: 03/28/2018 02:02 PM Electronically Signed By:Di Delgado RN
--- NOTE | 2018-03-28 14:33 | HOSPPROG ---
Hospitalist Progress Note Assessment/Plan: symptomatic care restart anticoag and tube feeds IVF Subjective: still w vomiting Objective: Vital Signs Temp Pulse Resp BP Pulse Ox 36.9 C 58 L 16 128/75 H 97 03/28/18 12:00 03/28/18 12:00 03/28/18 12:00 03/28/18 12:00 03/28/18 12:00 Laboratory Results 03/28/18 04:36 03/28/18 04:36 03/27/18 03/28/18 03/29/18 05:59 05:59 05:59 Intake Total 2300 Output Total 500 Balance 1800 PT 14.8 SEC (12.0-15.0) 03/27/18 23:10 INR 1.14 (0.83-1.16) 03/27/18 23:10 ICD10 Worksheet Patient Problems: Problems Problem Status Onset Dehydration Acute Generalized weakness Acute Nausea and vomiting Acute Persistent vomiting in adult patient Acute Squamous cell carcinoma Acute Vomiting Acute
--- NOTE | 2018-03-28 16:39 | GCON ---
[f rep st] CONSULTATION ONCOLOGY CONSULTATION REASON FOR CONSULTATION: Nausea and vomiting following chemotherapy for nasopharyngeal carcinoma. HISTORY OF PRESENT ILLNESS: The patient is a very pleasant 57-year-old male with history of a stage III nasopharyngeal carcinoma who is now admitted with worsening nausea, vomiting. The patient's hist ory dates back to October of 2017, when he presented with headaches and hoarseness. He was found to have a nasopharyngeal mass with biopsy done on October 20 in [place] showing a poorly differen tiated squamous cell carcinoma. EBV was negative. PET-CT showed a hypermetabolic posterior nasophar yngeal mass measuring 5.8 x 4.4 x 3.9 cm. It involved the clivus of the sphenoid sinus. He had some hypermetabolic level 2 lymph nodes on the right and left level 2 cervical node, which was also PET a vid. He was treated with concurrent radiation therapy and cisplatin, which he completed in December. The patient was in the office this Wednesday receiving the last cycle of cisplatin and 5-FU. This is hi s third cycle of chemotherapy. He is generally tolerated it poorly. He was received cisplatin on and started on a 5-FU pump with a dose of 4000 mg/m2 over 96 hours. The pump is scheduled to be discontinued tomorrow morning. He presented to the emergency room last night with intractable nausea, vomiting. He also describes c hills, but no fever. He has a G-tube in that he typically does tube feeds through; however, he has b een vomiting up that as well. He denies any diarrhea. PAST MEDICAL HISTORY: History of nasopharyngeal carcinoma, chronic pain syndrome, hepatitis C previo usly treated, hypertension, left upper extremity DVT diagnosed November 2017, currently on Xarelto. PAST SURGICAL HISTORY: PICC line placement and PEG tube. FAMILY HISTORY: Noncontributory. SOCIAL HISTORY: He is a former smoker and former chewer of tobacco. He is . He moved here from [place] earlier in the year. REVIEW OF SYSTEMS: 10-point review of systems is negative other than stated in HPI. PHYSICAL EXAMINATION: GENERAL: He is a fatigued, chronically ill-appearing male resting quietly in bed. VITAL SIGNS: Blood pressure 128/75, heart rate 58, respirations 16. He is afebrile. O2 satur ation is 97% on room air. HEART: Regular rate. LUNGS: Clear to auscultation anteriorly. ABDOMEN: Soft, nontender. Normal bowel sounds. G-tube site is unremarkable. EXTREMITIES: No edema. LABORATORY DATA: Basic metabolic panel unremarkable. White blood cell count 5.4, hematocrit 33.4. IMPRESSION: This is a 57-year-old male diagnosed with a stage III nasopharyngeal squamous cell carci noma in October of this year. He has completed a course of concurrent radiation with cisplatin and i s now day 4, cycle 3 of cisplatin and 5-FU. This is his last cycle of adjuvant chemotherapy. He has tolerated it poorly and is admitted for refractory nausea and vomiting. The patient describes feeli ng chilled, but has not had any fever and denies any obvious source of infection. Current antiemetic s, include Ativan, Zofran, Phenergan. He did receive pretreatment antiemetics with palonosetron, dex amethasone, and fosaprepitant. The patient is being treated with curative intent. We will continue to follow along with you. /[id number]/MODL
[2018-03-28] MEDS ORDERED: FLUOROURACIL IV SCH (16:45)
[2018-03-28] MEDS ORDERED: PUMP SET IV SCH (16:45)
[2018-03-28] MEDS: RIVAROXABAN 10 MG TAB PO SCH ×2 (19:17→22:36)
[2018-03-29] MEDS: HYDROmorphONE/DILAUDID 1 MG/ML INJ IVP PRN ×6 (02:43→22:26)
[2018-03-29 05:47] LABS: PLATELET COUNT 182 10^3/uL (150-400)
[2018-03-29] MEDS ORDERED: POTASSIUM Cl (KCl) 50 ML IV SCH (08:30)
[2018-03-29] MEDS: POTASSIUM Cl (KCl) 50 ML IV SCH ×4 (08:32→12:55)
[2018-03-29] MEDS: NS 1,000 ML IV SCH ×2 (08:35→20:27)
[2018-03-29] MEDS ORDERED: PANTOPRAZOLE SODIUM 40 MG TAB PO SCH (09:00)
[2018-03-29] MEDS: RIVAROXABAN 10 MG TAB PO SCH (11:35)
[2018-03-29] MEDS: ONDANSETRON 4 MG/2 ML VIAL IVP PRN ×2 (12:21→20:27)
[2018-03-29] MEDS: LORazepam 2 MG/ML INJ IVP PRN ×2 (12:21→20:26)
[2018-03-29] MEDS ORDERED: PROTOCOL POTASSIUM 1 DOSE MISC PRN (14:48)
--- NOTE | 2018-03-29 14:54 | HOSPPROG ---
Hospitalist Progress Note Assessment/Plan: 57 yo M w nasopharyngeal CA admitted w nausea and vomiting 2/2 chemo n/vom: continue IVF, anticemetics attributable to cisplatin hypokalemia: place on IV K protocol anemia: mild and stable proph: anticoagulated dispo: intp Subjective: case d/w dr carney. less vomiting Objective: Vital Signs Temp Pulse Resp BP Pulse Ox 36.7 C 70 15 133/97 H 96 03/29/18 12:00 03/29/18 12:00 03/29/18 12:00 03/29/18 12:00 03/29/18 12:00 Laboratory Results 03/29/18 05:20 03/29/18 05:20 03/28/18 03/29/18 03/30/18 05:59 05:59 05:59 Intake Total 2300 2469 Output Total 500 200 Balance 1800 2269 PT 14.8 SEC (12.0-15.0) 03/27/18 23:10 INR 1.14 (0.83-1.16) 03/27/18 23:10 - Physical Exam Constitutional: no apparent distress, appears nourished Eyes: PERRL, anicteric sclera Ears, Nose, Mouth, Throat: hearing normal Cardiovascular: regular rate and rhythym, no murmur, rub, or gallop Respiratory: no respiratory distress, no rales or rhonchi Gastrointestinal: normoactive bowel sounds, soft, non-tender abdomen, No guarding, No rebound Genitourinary: no bladder fullness, No bernabe in urethra Skin: warm, normal color Musculoskeletal: full muscle strength, no muscle tenderness Neurologic: AAOx3 ICD10 Worksheet Patient Problems: Problems Problem Status Onset Dehydration Acute Generalized weakness Acute Nausea and vomiting Acute Persistent vomiting in adult patient Acute Squamous cell carcinoma Acute Vomiting Acute
--- NOTE | 2018-03-29 15:18 | PDMN ---
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
--- NOTE | 2018-03-29 17:01 | SOAPPROG ---
SOAP Progress Note Assessment/Plan: Assessment: 1. N/V-somewhat improved with ongoing antiemetics, but still having dry heaves. 2. Nasopharyngeal cancer-stage 3-s/p XRT/concurrent CDDP, now D5C3 of adjuvant CDDP and 5FU. 5FU continuous infusion completed this morning. Pump taken to [facility]. 3. Nutrition-probably attempt to resume tube feeds tonight. 4. Dysphagia-no obvious mucositis, thrush. ? secondary to vomitting? Plan: 1. Continue supportive therapy with antiemetics and pain meds. 2. Resume tube feeds as tolerated. 03/29/18 16:57 03/29/18 17:04 03/29/18 17:05 Subjective: doesn't feel well. continues to have throat pain Objective: Vital Signs Temp Pulse Resp BP Pulse Ox 36.7 C 73 16 147/93 H 98 03/29/18 16:00 03/29/18 16:00 03/29/18 16:00 03/29/18 16:00 03/29/18 16:00 PT 14.8 SEC (12.0-15.0) 03/27/18 23:10 INR 1.14 (0.83-1.16) 03/27/18 23:10 Physical Exam - Physical Exam General Appearance: no apparent distress Abdomen: non-tender, soft, other (G-tube) ICD10 Worksheet Patient Problems: Problems Problem Status Onset Dehydration Acute Generalized weakness Acute Nausea and vomiting Acute Persistent vomiting in adult patient Acute Squamous cell carcinoma Acute Vomiting Acute
[2018-03-29] MEDS: PROMETHAZINE HCL 25 MG/ML INJ IVP PRN ×2 (17:38→23:41)
[2018-03-29] MEDS: POTASSIUM Cl (KCl) 10 MEQ in NS 100 ML IV SCH ×3 (20:27→23:41)
[2018-03-30] MEDS: ONDANSETRON 4 MG/2 ML VIAL IVP PRN ×5 (01:04→22:10)
[2018-03-30] MEDS: POTASSIUM Cl (KCl) 10 MEQ in NS 100 ML IV SCH (01:04)
[2018-03-30] MEDS: HYDROmorphONE/DILAUDID 1 MG/ML INJ IVP PRN ×8 (01:04→22:10)
[2018-03-30] MEDS: LORazepam 2 MG/ML INJ IVP PRN (05:31)
[2018-03-30] MEDS: PROMETHAZINE HCL 25 MG/ML INJ IVP PRN ×2 (05:52→19:17)
[2018-03-30] MEDS ORDERED: POTASSIUM Cl (KCl) 100 ML IV SCH (07:30)
[2018-03-30] MEDS: POTASSIUM Cl (KCl) 50 ML IV SCH ×3 (08:04→10:59)
[2018-03-30] MEDS: PANTOPRAZOLE SODIUM 40 MG VIAL IVP SCH (08:05)
[2018-03-30] MEDS: RIVAROXABAN 10 MG TAB PO SCH (08:05)
[2018-03-30] MEDS ORDERED: OLANZapine DISINTEGR 5 MG TAB TUBE SCH (10:00)
[2018-03-30] MEDS ORDERED: morphINE 10 MG/0.5 ML UDSYR PO PRN (10:09)
--- NOTE | 2018-03-30 10:23 | SOAPPROG ---
SOAP Progress Note Assessment/Plan: A/P: * Delayed N/V s/p cisplatin-based chemotherapy. - add olanzapine * Chemotherapy-related mucositis. No significant evidence for jono/HSV. 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 C3D6 cis/5FU. 03/30/18 10:18 Subjective: Gets relief with pain meds, but not lasting long enough. Still with nausea, dry heaves. O: VSS Gen: fatigued. HEENT: mucositis posterior pharynx/tongue with some exudate. Lungs: breathing comfortably, CTA. Abd: soft. Skin: RUE PICC site nontender, no erythema. Labs: Laboratory Tests 03/29/18 03/29/18 03/30/18 05:20 05:20 05:05 WBC 5.62 Hgb 11.1 L Plt Count 182 Sodium 137 Potassium 3.0 L 3.3 Chloride 105 Carbon Dioxide 22 Anion Gap 10 BUN 14 Creatinine 0.5 L Glucose 75 Objective: Vital Signs Temp Pulse Resp BP Pulse Ox 37.1 C 63 16 136/76 H 97 03/30/18 08:15 03/30/18 08:15 03/30/18 08:15 03/30/18 08:15 03/30/18 08:15 Laboratory Results 03/30/18 05:05 03/29/18 03/30/18 03/31/18 05:59 05:59 05:59 Intake Total 2094 Balance 2094 PT 14.8 SEC (12.0-15.0) 03/27/18 23:10 INR 1.14 (0.83-1.16) 03/27/18 23:10 ICD10 Worksheet Patient Problems: Problems Problem Status Onset Dehydration Acute Generalized weakness Acute Nausea and vomiting Acute Persistent vomiting in adult patient Acute Squamous cell carcinoma Acute Vomiting Acute
[2018-03-30] MEDS: OLANZapine DISINTEGR 5 MG TAB TUBE SCH (10:30)
--- NOTE | 2018-03-30 13:07 | HOSPPROG ---
Hospitalist Progress Note Assessment/Plan: 57 yo M w nasopharyngeal CA admitted w nausea and vomiting 2/2 chemo n/vom: continue IVF, antiemetics attributable to cisplatin hypokalemia: start daily K anemia: mild and stable proph: anticoagulated dispo: inpt Subjective: case d/w dr huff Objective: Vital Signs Temp Pulse Resp BP Pulse Ox 37.2 C 82 16 130/81 H 95 03/30/18 12:00 03/30/18 12:00 03/30/18 12:00 03/30/18 12:00 03/30/18 12:00 Laboratory Results 03/30/18 05:05 03/29/18 03/30/18 03/31/18 05:59 05:59 05:59 Intake Total 2094 Balance 2094 PT 14.8 SEC (12.0-15.0) 03/27/18 23:10 INR 1.14 (0.83-1.16) 03/27/18 23:10 - Physical Exam Constitutional: no apparent distress, appears nourished Eyes: PERRL, anicteric sclera Ears, Nose, Mouth, Throat: moist mucous membranes, hearing normal Cardiovascular: regular rate and rhythym, no murmur, rub, or gallop Respiratory: no respiratory distress, no rales or rhonchi Gastrointestinal: normoactive bowel sounds, soft, non-tender abdomen Genitourinary: No bernabe in urethra Skin: warm, normal color Musculoskeletal: full muscle strength Neurologic: AAOx3 ICD10 Worksheet Patient Problems: Problems Problem Status Onset Dehydration Acute Generalized weakness Acute Nausea and vomiting Acute Persistent vomiting in adult patient Acute Squamous cell carcinoma Acute Vomiting Acute
[2018-03-30] MEDS: NS 1,000 ML IV SCH (20:27)
[2018-03-30] MEDS: SCOPOLAMINE HYDROBROMIDE 1 MG/3 DAYS PATCH TD SCH (20:58)
[2018-03-31] MEDS: HYDROmorphONE/DILAUDID 1 MG/ML INJ IVP PRN ×7 (00:43→21:03)
[2018-03-31] MEDS: PROMETHAZINE HCL 25 MG/ML INJ IVP PRN ×2 (02:05→17:40)
[2018-03-31] MEDS: ONDANSETRON 4 MG/2 ML VIAL IVP PRN ×3 (03:35→21:11)
[2018-03-31] MEDS: NS 1,000 ML IV SCH ×2 (05:58→15:58)
[2018-03-31] MEDS: RIVAROXABAN 10 MG TAB PO SCH (08:18)
[2018-03-31] MEDS: OLANZapine DISINTEGR 5 MG TAB TUBE SCH (08:18)
[2018-03-31] MEDS: PANTOPRAZOLE SODIUM 40 MG VIAL IVP SCH (08:18)
[2018-03-31] MEDS: LORazepam 2 MG/ML INJ IVP PRN ×2 (08:25→22:08)
[2018-03-31] MEDS ORDERED: ACETAMINOPHEN 325 MG TAB TUBE PRN (09:00)
[2018-03-31] MEDS ORDERED: POTASSIUM CL 20 MEQ/15 ML UDCUP PO SCH (09:00)
[2018-03-31] MEDS: RIVAROXABAN 10 MG TAB TUBE SCH (10:13)
[2018-03-31] MEDS: POTASSIUM CL 20 MEQ/15 ML UDCUP TUBE SCH (10:13)
--- NOTE | 2018-03-31 11:33 | HOSPPROG ---
Hospitalist Progress Note Assessment/Plan: 57 yo M w nasopharyngeal CA admitted w nausea and vomiting 2/2 chemo n/vom: continue IVF, antiemetics attributable to cisplatin episodes overnigh likely 2/2 tube feeds none today follow hypokalemia: start daily K anemia: mild and stable proph: anticoagulated dispo: inpt Subjective: case d/w dr huff. couple episodes of vomiting yesterday as tube feeds had been started at goal. none this AM Objective: Vital Signs Temp Pulse Resp BP Pulse Ox 36.8 C 62 18 134/86 H 96 03/31/18 08:00 03/31/18 08:00 03/31/18 08:00 03/31/18 08:00 03/31/18 08:00 Laboratory Results 03/30/18 05:05 03/30/18 03/31/18 04/01/18 05:59 05:59 05:59 Intake Total 2095 2831 Output Total 50 Balance 2095 2781 PT 14.8 SEC (12.0-15.0) 03/27/18 23:10 INR 1.14 (0.83-1.16) 03/27/18 23:10 - Physical Exam Constitutional: no apparent distress, appears nourished Eyes: PERRL, anicteric sclera Ears, Nose, Mouth, Throat: moist mucous membranes, other (mucusitis) Cardiovascular: regular rate and rhythym, no murmur, rub, or gallop Respiratory: no respiratory distress, no rales or rhonchi Gastrointestinal: normoactive bowel sounds, soft, non-tender abdomen Genitourinary: no bladder fullness, No bernabe in urethra Skin: warm, normal color Musculoskeletal: full muscle strength Neurologic: AAOx3 ICD10 Worksheet Patient Problems: Problems Problem Status Onset Dehydration Acute Generalized weakness Acute Nausea and vomiting Acute Persistent vomiting in adult patient Acute Squamous cell carcinoma Acute Vomiting Acute
[2018-04-01] MEDS: HYDROmorphONE/DILAUDID 1 MG/ML INJ IVP PRN ×9 (00:39→20:59)
[2018-04-01] MEDS: NS 1,000 ML IV SCH ×3 (00:41→20:59)
[2018-04-01] MEDS: LIDOCAINE 2% VISCOUS 15 ML UDCUP PO PRN (00:45)
[2018-04-01] MEDS: PROMETHAZINE HCL 25 MG/ML INJ IVP PRN ×3 (06:08→21:22)
[2018-04-01] MEDS: PANTOPRAZOLE SODIUM 40 MG VIAL IVP SCH (08:21)
[2018-04-01] MEDS: POTASSIUM CL 20 MEQ/15 ML UDCUP TUBE SCH (08:21)
[2018-04-01] MEDS: OLANZapine DISINTEGR 5 MG TAB TUBE SCH (08:21)
[2018-04-01] MEDS: RIVAROXABAN 10 MG TAB TUBE SCH (08:22)
[2018-04-01] MEDS: LORazepam 2 MG/ML INJ IVP PRN ×2 (08:41→22:54)
--- NOTE | 2018-04-01 10:05 | HOSPPROG ---
Hospitalist Progress Note Assessment/Plan: 57 yo M w nasopharyngeal CA admitted w nausea and vomiting 2/2 chemo n/vom: continue IVF, antiemetics attributable to cisplatin now tolerating tube feeds hypokalemia: start daily K anemia: mild and stable check hct today proph: anticoagulated dispo: inpt Subjective: case d/w dr carney. afebrile. no vomiting Objective: Vital Signs Temp Pulse Resp BP Pulse Ox 37.0 C 66 15 126/81 H 97 04/01/18 08:00 04/01/18 08:00 04/01/18 08:00 04/01/18 08:00 04/01/18 08:00 Laboratory Results 03/31/18 12:30 03/31/18 04/01/18 04/02/18 05:59 05:59 05:59 Intake Total 2831 3263 Output Total 50 Balance 2781 3263 PT 14.8 SEC (12.0-15.0) 03/27/18 23:10 INR 1.14 (0.83-1.16) 03/27/18 23:10 - Physical Exam Constitutional: no apparent distress, appears nourished Eyes: PERRL, anicteric sclera Ears, Nose, Mouth, Throat: hearing normal, other (oral mucosa friable, no thrush , dry) Cardiovascular: regular rate and rhythym, no murmur, rub, or gallop Respiratory: no respiratory distress, no rales or rhonchi Gastrointestinal: normoactive bowel sounds, soft, non-tender abdomen, No guarding, No rebound Genitourinary: No bernabe in urethra Skin: warm, normal color Musculoskeletal: full muscle strength ICD10 Worksheet Patient Problems: Problems Problem Status Onset Dehydration Acute Generalized weakness Acute Nausea and vomiting Acute Persistent vomiting in adult patient Acute Squamous cell carcinoma Acute Vomiting Acute
[2018-04-01 11:20] LABS: PLATELET COUNT 159 10^3/uL (150-400)
[2018-04-01] MEDS ORDERED: ALTEPLASE 2 MG VIAL IVP PRN (14:54)
--- NOTE | 2018-04-01 15:25 | SOAPPROG ---
SOAP Progress Note Assessment/Plan: A/P: * Delayed N/V s/p cisplatin-based chemotherapy. Improving, either due to time passing from chemo or addition of olanzapine. * Chemotherapy-related mucositis. No significant evidence for jono/HSV. 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 C3D6 cis/5FU. 04/01/18 15:24 Subjective: Nausea improved. Still with mucositis pain. Tolerating TF. Daughter present. O: VS reviewed Gen: Looks better. HEENT: mucositis pharynx, tongue, lips. CV: no edema. Lungs: breathing comfortably, CTA. Laboratory Tests 03/31/18 04/01/18 12:30 11:07 WBC 4.69 Hgb 10.8 L Plt Count 159 Sodium 136 Potassium 3.4 Chloride 101 Carbon Dioxide 25 Anion Gap 10 BUN 10 Creatinine 0.6 L Glucose 82 Objective: Vital Signs Temp Pulse Resp BP Pulse Ox 37.0 C 71 16 121/77 H 96 04/01/18 11:39 04/01/18 11:39 04/01/18 11:39 04/01/18 11:39 04/01/18 11:39 Laboratory Results 04/01/18 11:07 03/31/18 12:30 03/31/18 04/01/18 04/02/18 05:59 05:59 05:59 Intake Total 2831 3263 Output Total 50 Balance 2781 3263 PT 14.8 SEC (12.0-15.0) 03/27/18 23:10 INR 1.14 (0.83-1.16) 03/27/18 23:10 ICD10 Worksheet Patient Problems: Problems Problem Status Onset Dehydration Acute Generalized weakness Acute Nausea and vomiting Acute Persistent vomiting in adult patient Acute Squamous cell carcinoma Acute Vomiting Acute
--- NOTE | 2018-04-01 16:17 | ASMTCMCOM ---
CM Note CM Note Notes: Reviewed pt with director of home care hospice. Pt will likely be at [facility] a few more days. CM will follow for DC needs. Date Signed: 04/01/2018 04:17 PM Electronically Signed By:Bertha Guevara LCSW
[2018-04-02] MEDS: ONDANSETRON 4 MG/2 ML VIAL IVP PRN (01:27)
[2018-04-02] MEDS: LIDOCAINE 2% VISCOUS 15 ML UDCUP PO PRN ×2 (01:28→08:43)
[2018-04-02] MEDS: HYDROmorphONE/DILAUDID 1 MG/ML INJ IVP PRN ×8 (01:28→22:36)
[2018-04-02] MEDS: PROMETHAZINE HCL 25 MG/ML INJ IVP PRN ×2 (04:44→13:36)
[2018-04-02] MEDS: NS 1,000 ML IV SCH ×2 (04:53→18:19)
[2018-04-02] MEDS: PANTOPRAZOLE SODIUM 40 MG VIAL IVP SCH (08:24)
[2018-04-02] MEDS: POTASSIUM CL 20 MEQ/15 ML UDCUP TUBE SCH (08:24)
[2018-04-02] MEDS: RIVAROXABAN 10 MG TAB TUBE SCH (08:24)
--- NOTE | 2018-04-02 12:33 | SOAPPROG ---
SOAP Progress Note Assessment/Plan: Assessment: 1) Stage III nasopharyngeal carcinoma 2) Cycle 3 Day 7 Cisplatin / 5-FU 3) Chemotherapy induced nausea (resolved) 4) Chemotherapy induced oral mucocytis Plan: Doing better. Nausea responded to Olanzapine. Continue current oral care. Patient feels that his pain is well controlled with IV Dilaudid. Replace potassium. Continue tube feeds. Expect continued gradual improvement over next several days. Patient's questions answered. 04/02/18 12:27 04/02/18 12:33 Subjective: Mucocytis persists, but pain well controlled on Dilaudid. Denies nausea Objective: Vital Signs Temp Pulse Resp BP Pulse Ox 36.7 C 66 16 143/85 H 97 04/02/18 08:00 04/02/18 08:00 04/02/18 08:00 04/02/18 08:00 04/02/18 08:00 Laboratory Results 04/01/18 11:07 04/02/18 05:51 04/01/18 04/02/18 04/03/18 05:59 05:59 05:59 Intake Total 3263 3577 Balance 3263 3577 PT 14.8 SEC (12.0-15.0) 03/27/18 23:10 INR 1.14 (0.83-1.16) 03/27/18 23:10 - Time Spent With Patient Time Spent With Patient: 25 minutes Physical Exam - Physical Exam General Appearance: alert, no apparent distress EENT: other (Significant / Persistant oral mucocytis without thrush) Respiratory: lungs clear Abdomen: non-tender, soft, other (PEG tube site without evidence of infection) Neuro/Psych: alert, normal mood/affect ICD10 Worksheet Patient Problems: Problems Problem Status Onset Dehydration Acute Generalized weakness Acute Nausea and vomiting Acute Persistent vomiting in adult patient Acute Squamous cell carcinoma Acute Vomiting Acute
--- NOTE | 2018-04-02 15:41 | HOSPPROG ---
Hospitalist Progress Note Assessment/Plan: 57 yo M w nasopharyngeal CA admitted w nausea and vomiting 2/2 chemo n/vom: continue IVF, antiemetics attributable to cisplatin now tolerating tube feeds hypokalemia: increase k to 40 daily anemia: mild and stable check hct today proph: anticoagulated dispo: inpt Subjective: case d/w dr hector. up walking in [place] and more animated today Objective: Vital Signs Temp Pulse Resp BP Pulse Ox 36.6 C 93 16 121/100 H 97 04/02/18 12:44 04/02/18 12:44 04/02/18 12:44 04/02/18 12:44 04/02/18 12:44 Laboratory Results 04/01/18 11:07 04/02/18 05:51 04/01/18 04/02/18 04/03/18 05:59 05:59 05:59 Intake Total 3263 3577 Balance 3263 3577 PT 14.8 SEC (12.0-15.0) 03/27/18 23:10 INR 1.14 (0.83-1.16) 03/27/18 23:10 - Physical Exam Constitutional: no apparent distress, appears nourished Eyes: PERRL Ears, Nose, Mouth, Throat: other (mucusitis, no thrush) Cardiovascular: regular rate and rhythym, no murmur, rub, or gallop Respiratory: no respiratory distress, no rales or rhonchi Gastrointestinal: normoactive bowel sounds, soft, non-tender abdomen Genitourinary: no bladder fullness, No bernabe in urethra Skin: warm, normal color Musculoskeletal: full muscle strength, no muscle tenderness Neurologic: AAOx3 Psychiatric: interacting appropriately ICD10 Worksheet Patient Problems: Problems Problem Status Onset Dehydration Acute Generalized weakness Acute Nausea and vomiting Acute Persistent vomiting in adult patient Acute Squamous cell carcinoma Acute Vomiting Acute
[2018-04-02] MEDS: SCOPOLAMINE HYDROBROMIDE 1 MG/3 DAYS PATCH TD SCH (19:33)
[2018-04-03] MEDS: HYDROmorphONE/DILAUDID 1 MG/ML INJ IVP PRN ×8 (00:46→21:09)
[2018-04-03] MEDS: PROMETHAZINE HCL 25 MG/ML INJ IVP PRN ×3 (00:53→21:09)
[2018-04-03] MEDS: NS 1,000 ML IV SCH ×3 (02:51→20:16)
[2018-04-03] MEDS: POTASSIUM CL 20 MEQ/15 ML UDCUP TUBE SCH (08:41)
[2018-04-03] MEDS: RIVAROXABAN 10 MG TAB TUBE SCH (08:41)
[2018-04-03] MEDS: PANTOPRAZOLE SODIUM 40 MG VIAL IVP SCH (09:14)
[2018-04-03] MEDS: ONDANSETRON 4 MG/2 ML VIAL IVP PRN ×2 (10:07→14:49)
--- NOTE | 2018-04-03 11:39 | HOSPPROG ---
Hospitalist Progress Note Assessment/Plan: 57 yo M w nasopharyngeal CA admitted w nausea and vomiting 2/2 chemo n/vom: continue IVF, antiemetics attributable to cisplatin now tolerating tube feeds hypokalemia: increase k to 40 daily better today (04/03) anemia: mild and stable check hct today proph: anticoagulated dispo: inpt barriers to dc are improving oral health Subjective: alfa d/w dr hector. mouth painful, slightly better today Objective: Vital Signs Temp Pulse Resp BP Pulse Ox 36.5 C 68 16 133/90 H 94 04/03/18 07:15 04/03/18 07:15 04/03/18 07:15 04/03/18 07:15 04/03/18 07:15 Laboratory Results 04/01/18 11:07 04/03/18 05:35 04/02/18 04/03/18 04/04/18 05:59 05:59 05:59 Intake Total 3577 3364 Balance 3577 3364 PT 14.8 SEC (12.0-15.0) 03/27/18 23:10 INR 1.14 (0.83-1.16) 03/27/18 23:10 - Physical Exam Constitutional: no apparent distress, appears nourished Eyes: PERRL, anicteric sclera Ears, Nose, Mouth, Throat: other (mucusitis. no thrush) Cardiovascular: regular rate and rhythym, no murmur, rub, or gallop Respiratory: no respiratory distress, no rales or rhonchi Gastrointestinal: normoactive bowel sounds, soft, non-tender abdomen Genitourinary: no bladder fullness, No bernabe in urethra Skin: warm, normal color Musculoskeletal: full muscle strength Neurologic: AAOx3 ICD10 Worksheet Patient Problems: Problems Problem Status Onset Dehydration Acute Generalized weakness Acute Nausea and vomiting Acute Persistent vomiting in adult patient Acute Squamous cell carcinoma Acute Vomiting Acute
[2018-04-03] MEDS ORDERED: HYDROCODONE/APAP 5/325 TAB PO PRN (11:40)
--- NOTE | 2018-04-03 11:43 | SOAPPROG ---
SOAP Progress Note Assessment/Plan: Assessment: 1) Stage III nasopharyngeal carcinoma 2) Cycle 3 Day 8 Cisplatin / 5-FU 3) Chemotherapy induced nausea (resolved) 4) Chemotherapy induced oral mucocytis Plan: Doing better. Nausea responded to Olanzapine. Continue current oral care. He is slowly improving. Patient feels that his pain is well controlled with IV Dilaudid. Continue tube feeds. Expect continued gradual improvement over next several days. Patient's questions answered. 04/03/18 11:44 Subjective: Pain well controlled. Mucocytis gradually improving. Objective: Vital Signs Temp Pulse Resp BP Pulse Ox 36.5 C 68 16 133/90 H 94 04/03/18 07:15 04/03/18 07:15 04/03/18 07:15 04/03/18 07:15 04/03/18 07:15 Laboratory Results 04/01/18 11:07 04/03/18 05:35 04/02/18 04/03/18 04/04/18 05:59 05:59 05:59 Intake Total 3577 3364 Balance 3577 3364 PT 14.8 SEC (12.0-15.0) 03/27/18 23:10 INR 1.14 (0.83-1.16) 03/27/18 23:10 - Time Spent With Patient Time Spent With Patient: 15 minutes Physical Exam - Physical Exam General Appearance: alert, no apparent distress EENT: other (Fairly severe oral mucocytis with no evidence of thrush) Respiratory: lungs clear Cardiac/Chest: regular rate, rhythm Neuro/Psych: alert, normal mood/affect ICD10 Worksheet Patient Problems: Problems Problem Status Onset Dehydration Acute Generalized weakness Acute Nausea and vomiting Acute Persistent vomiting in adult patient Acute Squamous cell carcinoma Acute Vomiting Acute
[2018-04-03] MEDS: HYDROCODONE/APAP 5/325 TAB TUBE PRN ×2 (13:31→19:22)
[2018-04-03] MEDS: LORazepam 2 MG/ML INJ IVP PRN (21:09)
[2018-04-03] MEDS: LIDOCAINE 2% VISCOUS 15 ML UDCUP PO PRN (21:18)
[2018-04-04] MEDS: HYDROmorphONE/DILAUDID 1 MG/ML INJ IVP PRN ×4 (01:43→07:51)
[2018-04-04] MEDS: NS 1,000 ML IV SCH (07:49)
[2018-04-04] MEDS: RIVAROXABAN 10 MG TAB TUBE SCH (08:47)
[2018-04-04] MEDS: POTASSIUM CL 20 MEQ/15 ML UDCUP TUBE SCH (08:47)
[2018-04-04] MEDS: HYDROCODONE/APAP 5/325 TAB TUBE PRN (08:47)
[2018-04-04] MEDS: PANTOPRAZOLE SODIUM 40 MG VIAL IVP SCH (08:47)
[2018-04-04] MEDS ORDERED: NALOXONE HCL 0.4 MG/ML INJ IVP PRN (10:01)
[2018-04-04] MEDS ORDERED: HYDROmorphONE/DILAUDID 4 MG TAB PO PRN (10:02)
--- NOTE | 2018-04-04 10:06 | HOSPPROG ---
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 - trial of PO Dilaudid # nasopharyngeal cancer s/p 3 cycles of cisplatin/5-FU and XRT - completed treatment # hemorrhoids - sitz bath, proctofoam # constipation - schedule miralax # LUE DVT - xarelto # FEN - TF; K better Subjective: c/o severe oral and hemorrhoidal pain Objective: Vital Signs Temp Pulse Resp BP Pulse Ox 36.9 C 66 16 138/77 H 97 04/04/18 08:00 04/04/18 08:00 04/04/18 08:00 04/04/18 08:00 04/04/18 08:00 Laboratory Results 04/01/18 11:07 04/03/18 05:35 04/03/18 04/04/18 04/05/18 05:59 05:59 05:59 Intake Total 3364 2060 Balance 3364 2060 PT 14.8 SEC (12.0-15.0) 03/27/18 23:10 INR 1.14 (0.83-1.16) 03/27/18 23:10 high risk on IV narcotics - Physical Exam Constitutional: no apparent distress, appears nourished Cardiovascular: regular rate and rhythym, no murmur, rub, or gallop, systolic murmur Respiratory: no respiratory distress, no rales or rhonchi, clear to auscultation Gastrointestinal: soft, non-tender abdomen, other (PEG tube) ICD10 Worksheet Patient Problems: Problems Problem Status Onset Vomiting Acute Squamous cell carcinoma Acute Persistent vomiting in adult patient Acute Nausea and vomiting Acute Dehydration Acute Generalized weakness Acute
[2018-04-04] MEDS: PROMETHAZINE HCL 25 MG/ML INJ IVP PRN (10:19)
[2018-04-04] MEDS: POLYETHYLENE GLYCOL 3350 17 GM PKT TUBE SCH (10:21)
[2018-04-04] MEDS: HYDROmorphONE/DILAUDID 6 MG/30 ML PCA IV PRN (10:29)
--- NOTE | 2018-04-04 12:06 | ASMTCMCOM ---
CM Note CM Note Notes: Pt seen by PT today. PT recommending Pt see a physical therapist as an Out-Pt upon D/C. D/C Plans: Out-Pt PT and other needs TBD. Date Signed: 04/04/2018 12:05 PM Electronically Signed By:Evy Swann
[2018-04-04] MEDS: LORazepam 2 MG/ML INJ IVP PRN (13:09)
--- NOTE | 2018-04-04 13:33 | SOAPPROG ---
MICHAEL Progress Note Assessment/Plan: E&M Nasopharyngeal carcinoma * Stage III nasopharyngeal carcinoma: Cycle 3 Day 9 Cisplatin / 5-FU with stomatitis. Anticipate that over the next week the stomatitis will significantly improved. Therefore, I would like to continue short acting narcotics to help control the pain. We will try some oral Dilaudid through the feeding tube and put him on a TIME RECORDER to use as needed. He is also to continue using the topical viscous lidocaine. He is to continue the tube feeding. * Constipation and hemorrhoids: These are probably tied and contributing to his pain. We will have him try local therapies for the hemorrhoids and using Tucks pads and sitz baths. We will also try to help him with the constipation so he has a bowel movement at least every other day. Subjective: His mouth is still very sore and he gets some relief from the IV Dilaudid but only lasts a couple hours. He is also having painful hemorrhoids and moving his bowels about every third day. Objective: Vital Signs Temp Pulse Resp BP Pulse Ox 36.6 C 69 16 123/77 H 98 04/04/18 12:01 04/04/18 12:01 04/04/18 12:01 04/04/18 12:01 04/04/18 12:01 Laboratory Results 04/01/18 11:07 04/04/18 10:35 04/03/18 04/04/18 04/05/18 05:59 05:59 05:59 Intake Total 3364 2060 Balance 3364 2060 PT 14.8 SEC (12.0-15.0) 03/27/18 23:10 INR 1.14 (0.83-1.16) 03/27/18 23:10 Physical Exam - Physical Exam General Appearance: no apparent distress EENT: other (Bleeding stomatitis) Abdomen: non-tender, soft, other (PEG is clean without sign of infection) ICD10 Worksheet Patient Problems: Problems Problem Status Onset Dehydration Acute Generalized weakness Acute Nausea and vomiting Acute Persistent vomiting in adult patient Acute Squamous cell carcinoma Acute Vomiting Acute
[2018-04-04] MEDS: PROCTOFOAM HC 10 GM CAN PR SCH ×2 (17:38→22:31)
[2018-04-04] MEDS: HYDROmorphONE/DILAUDID 4 MG TAB TUBE PRN (23:13)
[2018-04-05] MEDS: HYDROmorphONE/DILAUDID 6 MG/30 ML PCA IV PRN ×2 (00:38→13:58)
[2018-04-05] MEDS: PROMETHAZINE HCL 25 MG/ML INJ IVP PRN (01:09)
[2018-04-05] MEDS: ONDANSETRON 4 MG/2 ML VIAL IVP PRN ×2 (04:13→12:23)
[2018-04-05] MEDS: NS 1,000 ML IV SCH ×3 (04:19→22:03)
[2018-04-05] MEDS: LIDOCAINE 2% VISCOUS 15 ML UDCUP PO PRN ×3 (05:18→14:07)
[2018-04-05] MEDS: HYDROmorphONE/DILAUDID 4 MG TAB TUBE PRN ×4 (06:30→22:04)
[2018-04-05] MEDS: RIVAROXABAN 10 MG TAB TUBE SCH (08:39)
[2018-04-05] MEDS: LANSOPRAZOLE SUSP 30MG/10ML UDSYR (Adult) TUBE SCH (08:39)
[2018-04-05] MEDS: POLYETHYLENE GLYCOL 3350 17 GM PKT TUBE SCH (08:41)
[2018-04-05] MEDS: POTASSIUM CL 20 MEQ/15 ML UDCUP TUBE SCH (08:47)
[2018-04-05] MEDS: PROCTOFOAM HC 10 GM CAN PR SCH ×3 (08:53→22:03)
--- NOTE | 2018-04-05 09:32 | SOAPPROG ---
SOAP Progress Note Assessment/Plan: E&M Nasopharyngeal carcinoma * Stage III nasopharyngeal carcinoma: Cycle 3 Day 10 Cisplatin / 5-FU with stomatitis. Anticipate that over the next week the stomatitis will significantly improved. Continue dilaudid prn and MOLD CLEANER to control pain. He is also to continue using the topical viscous lidocaine. He is to continue the tube feeding. * Constipation and hemorrhoids: Needs to have bm today. Hemorrhoids are better. Subjective: Mouth sore but lips a little better. Pain controlled with both oral and MOLD CLEANER Objective: Vital Signs Temp Pulse Resp BP Pulse Ox 36.6 C 69 16 128/79 H 93 04/05/18 08:24 04/05/18 08:24 04/05/18 08:24 04/05/18 08:24 04/05/18 08:24 Laboratory Results 04/01/18 11:07 04/04/18 10:35 04/04/18 04/05/18 04/06/18 05:59 05:59 05:59 Intake Total 2059 1830 1168 Balance 2059 1830 1168 PT 14.8 SEC (12.0-15.0) 03/27/18 23:10 INR 1.14 (0.83-1.16) 03/27/18 23:10 Physical Exam - Physical Exam General Appearance: no apparent distress EENT: other (wide spread stomatitis) Respiratory: lungs clear Cardiac/Chest: regular rate, rhythm Abdomen: normal bowel sounds, non-tender, soft, other (PEG without s/sx infection) ICD10 Worksheet Patient Problems: Problems Problem Status Onset Dehydration Acute Generalized weakness Acute Nausea and vomiting Acute Persistent vomiting in adult patient Acute Squamous cell carcinoma Acute Vomiting Acute
--- NOTE | 2018-04-05 11:17 | HOSPPROG ---
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 - trial of Dilaudid per tube # nasopharyngeal cancer s/p 3 cycles of cisplatin/5-FU and XRT - completed treatment # hemorrhoids - better today; sitz bath, proctofoam # constipation - schedule miralax # LUE DVT - xarelto # FEN - TF; K better Subjective: mouth still sore; hemorrhoids slightly better today Objective: Vital Signs Temp Pulse Resp BP Pulse Ox 36.7 C 73 15 122/86 H 98 04/05/18 10:37 04/05/18 10:37 04/05/18 10:37 04/05/18 10:37 04/05/18 10:37 Laboratory Results 04/01/18 11:07 04/04/18 10:35 04/04/18 04/05/18 04/06/18 05:59 05:59 05:59 Intake Total 2059 183 1168 Balance 2059 1829 1168 PT 14.8 SEC (12.0-15.0) 03/27/18 23:10 INR 1.14 (0.83-1.16) 03/27/18 23:10 high risk on iv narcotics - Physical Exam Constitutional: no apparent distress, appears nourished Cardiovascular: regular rate and rhythym, no murmur, rub, or gallop Respiratory: no respiratory distress, no rales or rhonchi, No reduced air movement Gastrointestinal: normoactive bowel sounds, soft, non-tender abdomen, no palpable masses ICD10 Worksheet Patient Problems: Problems Problem Status Onset Vomiting Acute Squamous cell carcinoma Acute Persistent vomiting in adult patient Acute Nausea and vomiting Acute Dehydration Acute Generalized weakness Acute
--- NOTE | 2018-04-05 14:01 | ASMTCMCOM ---
CM Note CM Note Notes: Pt is current with [facility] for tube feeds. It is unclear if he will have any add'l at DC. Faxed referral to [facility]. Date Signed: 04/05/2018 02:01 PM Electronically Signed By:Bertha Guevara LCSW
[2018-04-05] MEDS: SCOPOLAMINE HYDROBROMIDE 1 MG/3 DAYS PATCH TD SCH (22:03)
[2018-04-05] MEDS: LORazepam 2 MG/ML INJ IVP PRN (22:16)
[2018-04-06] MEDS: HYDROmorphONE/DILAUDID 4 MG TAB TUBE PRN ×4 (05:57→20:22)
[2018-04-06 06:31] LABS: PLATELET COUNT 164 10^3/uL (150-400)
[2018-04-06] MEDS: POTASSIUM CL 20 MEQ/15 ML UDCUP TUBE SCH (08:42)
[2018-04-06] MEDS: LANSOPRAZOLE SUSP 30MG/10ML UDSYR (Adult) TUBE SCH (08:43)
[2018-04-06] MEDS: POLYETHYLENE GLYCOL 3350 17 GM PKT TUBE SCH (08:44)
[2018-04-06] MEDS: RIVAROXABAN 10 MG TAB TUBE SCH (08:44)
[2018-04-06] MEDS: PROCTOFOAM HC 10 GM CAN PR SCH ×3 (08:45→23:04)
--- NOTE | 2018-04-06 10:03 | SOAPPROG ---
SOAP Progress Note Assessment/Plan: Assessment: 1. 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 Mucositis 3. Anemia due to chemotherapy Plan: - transition to PO/PGT pain meds - anticipate d/c in the next few days so long as pain is well controlled - he has completed his planned therapy - will need PET-CT as outpatient to assess for response 25 min spent w/ pt and in coordination of care. 04/06/18 10:02 Subjective: feeling somewhat better. mouth still painful. Objective: Exam: NAD moderate mucositis Lungs CtAB CV RRR no MGR Abd: +BS NT ND Ext: no edema Vital Signs Temp Pulse Resp BP Pulse Ox 36.6 C 73 16 135/93 H 99 04/06/18 08:18 04/06/18 08:18 04/06/18 08:18 04/06/18 08:18 04/06/18 08:18 Laboratory Results 04/06/18 05:55 04/06/18 05:55 04/05/18 04/06/18 04/07/18 05:59 05:59 05:59 Intake Total 1830 5670 Output Total 20 Balance 1830 5650 PT 14.8 SEC (12.0-15.0) 03/27/18 23:10 INR 1.14 (0.83-1.16) 03/27/18 23:10 ICD10 Worksheet Patient Problems: Problems Problem Status Onset Dehydration Acute Generalized weakness Acute Nausea and vomiting Acute Persistent vomiting in adult patient Acute Squamous cell carcinoma Acute Vomiting Acute
[2018-04-06] MEDS: ONDANSETRON 4 MG/2 ML VIAL IVP PRN (11:10)
--- NOTE | 2018-04-06 13:59 | HOSPPROG ---
Hospitalist Progress Note Assessment/Plan: # uncontrolled pain d/t severe mucositis - cont dilaudid [employer]ENTICE today - used less today - cont Dilaudid per tube # nasopharyngeal cancer s/p 3 cycles of cisplatin/5-FU and XRT - completed treatment, curative intent # hemorrhoids - sitz bath, proctofoam # constipation - schedule miralax # LUE DVT - xarelto # FEN - TF Subjective: ongoing mouth pain; emesis x 1 today Objective: Vital Signs Temp Pulse Resp BP Pulse Ox 37.2 C 82 16 118/89 H 96 04/06/18 12:00 04/06/18 12:00 04/06/18 12:00 04/06/18 12:00 04/06/18 12:00 Laboratory Results 04/06/18 05:55 04/06/18 05:55 04/05/18 04/06/18 04/07/18 05:59 05:59 05:59 Intake Total 1830 5670 150 Output Total 20 Balance 1830 5650 150 PT 14.8 SEC (12.0-15.0) 03/27/18 23:10 INR 1.14 (0.83-1.16) 03/27/18 23:10 - Physical Exam Constitutional: no apparent distress Ears, Nose, Mouth, Throat: other (stomatitis) Cardiovascular: regular rate and rhythym, no murmur, rub, or gallop Respiratory: no respiratory distress, no rales or rhonchi, reduced air movement Gastrointestinal: normoactive bowel sounds, soft, non-tender abdomen, no palpable masses, other (PEG) ICD10 Worksheet Patient Problems: Problems Problem Status Onset Vomiting Acute Squamous cell carcinoma Acute Persistent vomiting in adult patient Acute Nausea and vomiting Acute Dehydration Acute Generalized weakness Acute
[2018-04-06] MEDS: LIDOCAINE 2% VISCOUS 15 ML UDCUP PO PRN (15:17)
[2018-04-06] MEDS ORDERED: IOPAMIDOL (ISOVUE-300) 100 ML BTL ONE (16:25)
[2018-04-06] MEDS ORDERED: DEXAMETHASONE 10 MG/ML VIAL IVP ONE (17:59)
[2018-04-06] MEDS: HYDROmorphONE/DILAUDID 6 MG/30 ML PCA IV PRN (18:18)
[2018-04-06] MEDS: AMPICILLIN/SULBACTAM 3 GM in NS 100 ML IV SCH ×2 (18:34→23:24)
[2018-04-06] MEDS: DEXAMETHASONE 4 MG/ML VIAL IVP SCH (23:24)
[2018-04-06] MEDS: LORazepam 2 MG/ML INJ IVP PRN (23:29)
[2018-04-07] MEDS: DEXAMETHASONE 4 MG/ML VIAL IVP SCH (05:07)
[2018-04-07] MEDS: AMPICILLIN/SULBACTAM 3 GM in NS 100 ML IV SCH ×4 (05:08→23:48)
[2018-04-07] MEDS: NS 1,000 ML IV SCH (05:10)
[2018-04-07] MEDS: POLYETHYLENE GLYCOL 3350 17 GM PKT TUBE SCH (08:47)
[2018-04-07] MEDS: LANSOPRAZOLE SUSP 30MG/10ML UDSYR (Adult) TUBE SCH (08:47)
[2018-04-07] MEDS: POTASSIUM CL 20 MEQ/15 ML UDCUP TUBE SCH (08:47)
[2018-04-07] MEDS: RIVAROXABAN 10 MG TAB TUBE SCH (08:47)
[2018-04-07] MEDS: HYDROmorphONE/DILAUDID 4 MG TAB TUBE PRN (08:48)
[2018-04-07] MEDS: PROCTOFOAM HC 10 GM CAN PR SCH ×3 (08:49→21:40)
[2018-04-07] MEDS: PROMETHAZINE HCL 25 MG/ML INJ IVP PRN (10:23)
--- NOTE | 2018-04-07 10:26 | SOAPPROG ---
MICHAEL Progress Note Assessment/Plan: E&M Nasopharyngeal carcinoma * Stage III nasopharyngeal carcinoma: Cycle 3 Day 12 Cisplatin / 5-FU with stomatitis. Anticipate that over the next week the stomatitis will significantly improved. Change dilaudid via PEG to scheduled and stop CHOKER HOOKER. He is also to continue using the topical viscous lidocaine and will try glutasolve. He is to continue the tube feeding but change to bolus with goal kcal 2982-8779/day. * Constipation and hemorrhoids: No BM x 3 days and needs to have bm today. Hemorrhoids are better. * Trouble breathing/swallowing: probably inflammation from stomatitis. Will stop dex and see how he does. Continue abx for now. Subjective: Episode of trouble breathing last night. CT showed some inflammation but no abscess or mass. Better this morning. No fever. Mouth still sore but he wants to try some things orally. Also wants to change to bolus feeding. Dilaudid via PEG lasts at least 4 hours. Only small, short lived benefit from CHOKER HOOKER. Objective: Vital Signs Temp Pulse Resp BP Pulse Ox 36.9 C 70 16 141/94 H 97 04/07/18 09:39 04/07/18 09:39 04/07/18 09:39 04/07/18 09:39 04/07/18 09:39 Laboratory Results 04/06/18 05:55 04/06/18 05:55 04/06/18 04/07/18 04/08/18 05:59 05:59 05:59 Intake Total 5670 5220 Output Total 20 Balance 5650 5220 PT 14.8 SEC (12.0-15.0) 03/27/18 23:10 INR 1.14 (0.83-1.16) 03/27/18 23:10 Physical Exam - Physical Exam General Appearance: no apparent distress EENT: other (significant stomatitis) Respiratory: lungs clear Cardiac/Chest: regular rate, rhythm Abdomen: other (PEG ok) ICD10 Worksheet Patient Problems: Problems Problem Status Onset Dehydration Acute Generalized weakness Acute Nausea and vomiting Acute Persistent vomiting in adult patient Acute Squamous cell carcinoma Acute Vomiting Acute
--- NOTE | 2018-04-07 11:13 | HOSPPROG ---
Hospitalist Progress Note Assessment/Plan: # dyspnea, tracheal compromise on neck CT - symptoms better today - cont steroids, PO today - cont abx today # uncontrolled pain d/t severe mucositis - dilaudid MANAGER WELDING changed to IV today prn today - cont Dilaudid, scheduled per tube # nasopharyngeal cancer s/p 3 cycles of cisplatin/5-FU and XRT - completed treatment, curative intent # hemorrhoids - sitz bath, proctofoam # constipation - schedule miralax # LUE DVT - xarelto # FEN - TF Subjective: had episode of difficulty breathing, feels better today; complains of burning lips today Objective: Vital Signs Temp Pulse Resp BP Pulse Ox 36.9 C 70 16 141/94 H 97 04/07/18 09:39 04/07/18 09:39 04/07/18 09:39 04/07/18 09:39 04/07/18 09:39 Laboratory Results 04/06/18 05:55 04/06/18 05:55 04/06/18 04/07/18 04/08/18 05:59 05:59 05:59 Intake Total 5670 5220 368 Output Total 20 Balance 5650 5220 368 PT 14.8 SEC (12.0-15.0) 03/27/18 23:10 INR 1.14 (0.83-1.16) 03/27/18 23:10 high risk on iv narcotics - Physical Exam Constitutional: uncomfortable Cardiovascular: regular rate and rhythym, no murmur, rub, or gallop Respiratory: no respiratory distress, no rales or rhonchi, clear to auscultation Gastrointestinal: normoactive bowel sounds, soft, non-tender abdomen, no palpable masses ICD10 Worksheet Patient Problems: Problems Problem Status Onset Vomiting Acute Squamous cell carcinoma Acute Persistent vomiting in adult patient Acute Nausea and vomiting Acute Dehydration Acute Generalized weakness Acute
[2018-04-07] MEDS: HYDROmorphONE/DILAUDID 4 MG TAB TUBE SCH ×3 (12:21→23:48)
[2018-04-07] MEDS: DEXAMETHASONE 2 MG TAB TUBE SCH ×3 (12:21→23:48)
[2018-04-07] MEDS: GLUTAMINE (GLUTASOLVE) 1 EACH PKT PO SCH ×2 (12:32→21:29)
[2018-04-07] MEDS: HYDROmorphONE/DILAUDID 1 MG/ML INJ IVP PRN ×2 (15:17→21:21)
--- NOTE | 2018-04-07 15:33 | ASMTCMCOM ---
CM Note CM Note Notes: Chart reviewed. Met with patient who informs me he lives with his daughter, her and grandson. He is current with [facility] but does not have home health care. PT recommending out patient rehab. CM to follow . Plan: Home with [facility] Date Signed: 04/07/2018 03:32 PM Electronically Signed By:Di Delgado RN
[2018-04-07] MEDS: LORazepam 2 MG/ML INJ IVP PRN (17:15)
[2018-04-08] MEDS: LORazepam 2 MG/ML INJ IVP PRN ×3 (01:13→20:52)
[2018-04-08] MEDS: AMPICILLIN/SULBACTAM 3 GM in NS 100 ML IV SCH (05:59)
[2018-04-08] MEDS: HYDROmorphONE/DILAUDID 4 MG TAB TUBE SCH ×3 (06:00→17:57)
[2018-04-08] MEDS: DEXAMETHASONE 2 MG TAB TUBE SCH ×3 (06:00→17:59)
[2018-04-08] MEDS: HYDROmorphONE/DILAUDID 1 MG/ML INJ IVP PRN ×3 (09:08→18:45)
[2018-04-08] MEDS: POTASSIUM CL 20 MEQ/15 ML UDCUP TUBE SCH (09:12)
[2018-04-08] MEDS: GLUTAMINE (GLUTASOLVE) 1 EACH PKT PO SCH ×2 (09:12→20:37)
[2018-04-08] MEDS: POLYETHYLENE GLYCOL 3350 17 GM PKT TUBE SCH (09:12)
[2018-04-08] MEDS: RIVAROXABAN 10 MG TAB TUBE SCH (09:12)
[2018-04-08] MEDS: LANSOPRAZOLE SUSP 30MG/10ML UDSYR (Adult) TUBE SCH (09:12)
[2018-04-08] MEDS: PROCTOFOAM HC 10 GM CAN PR SCH ×3 (09:13→20:53)
--- NOTE | 2018-04-08 09:36 | HOSPPROG ---
Hospitalist Progress Note Assessment/Plan: # dyspnea, tracheal compromise on neck CT; possibly due to infection given the new onset this late into his course - symptoms resolved - cont steroids - taper quickly - cont abx today - plan 7 days course (D#3), change to PO today # uncontrolled pain d/t severe mucositis - cont dilaudid IV and per tube today # nasopharyngeal cancer s/p 3 cycles of cisplatin/5-FU and XRT - completed treatment, curative intent # hemorrhoids - sitz bath, proctofoam # constipation - schedule miralax # LUE DVT - xarelto # FEN - TF Subjective: pain much better controlled today Objective: Vital Signs Temp Pulse Resp BP Pulse Ox 36.3 C 52 L 14 121/74 H 97 04/08/18 07:32 04/08/18 07:32 04/08/18 07:32 04/08/18 07:32 04/08/18 07:32 Laboratory Results 04/06/18 05:55 04/06/18 05:55 04/07/18 04/08/18 04/09/18 05:59 05:59 05:59 Intake Total 5220 3602 Balance 5220 3602 PT 14.8 SEC (12.0-15.0) 03/27/18 23:10 INR 1.14 (0.83-1.16) 03/27/18 23:10 high ris on IV narcotics - Physical Exam Constitutional: uncomfortable Cardiovascular: regular rate and rhythym, no murmur, rub, or gallop Respiratory: no respiratory distress, no rales or rhonchi, clear to auscultation Gastrointestinal: normoactive bowel sounds, soft, non-tender abdomen, no palpable masses, other (PEG) ICD10 Worksheet Patient Problems: Problems Problem Status Onset Vomiting Acute Squamous cell carcinoma Acute Persistent vomiting in adult patient Acute Nausea and vomiting Acute Dehydration Acute Generalized weakness Acute
--- NOTE | 2018-04-08 11:58 | SOAPPROG ---
SOAP Progress Note Assessment/Plan: E&M Nasopharyngeal carcinoma * Stage III nasopharyngeal carcinoma: Cycle 3 Day 13 Cisplatin / 5-FU with stomatitis. stomatitis is improving; still very tender. On dilaudid via PEG. He is also to continue using the topical viscous lidocaine and will try glutasolve. He is to continue the tube feeding but change to bolus with goal kcal 9542-9997/day. * Constipation and hemorrhoids: Continue bowel program. Hemorrhoids are better. * Trouble breathing/swallowing: No further problems on abx Subjective: Doing a little better. Tried some oral liquids but too painful. Objective: Vital Signs Temp Pulse Resp BP Pulse Ox 36.3 C 52 L 14 121/74 H 97 04/08/18 07:32 04/08/18 07:32 04/08/18 07:32 04/08/18 07:32 04/08/18 07:32 Laboratory Results 04/06/18 05:55 04/06/18 05:55 04/07/18 04/08/18 04/09/18 05:59 05:59 05:59 Intake Total 5220 3602 Balance 5220 3602 PT 14.8 SEC (12.0-15.0) 03/27/18 23:10 INR 1.14 (0.83-1.16) 03/27/18 23:10 Physical Exam - Physical Exam General Appearance: no apparent distress EENT: other (mucositis is much better) Respiratory: lungs clear Cardiac/Chest: regular rate, rhythm Abdomen: other (PEG ok) ICD10 Worksheet Patient Problems: Problems Problem Status Onset Stomatitis and mucositis Acute Squamous cell carcinoma Acute Generalized weakness Acute
[2018-04-08] MEDS: LIDOCAINE 2% VISCOUS 15 ML UDCUP PO PRN (14:08)
--- NOTE | 2018-04-08 14:46 | ASMTCMCOM ---
CM Note CM Note Notes: PT recommending out-pt PT. [facility] to continue. CM will follow. D/C Plan: TBD Date Signed: 04/08/2018 02:45 PM Electronically Signed By:Evy Swann
[2018-04-08] MEDS: NS 1,000 ML IV SCH (20:26)
[2018-04-08] MEDS: SCOPOLAMINE HYDROBROMIDE 1 MG/3 DAYS PATCH TD SCH (20:35)
[2018-04-08] MEDS: AMOX TR/K CLAV 400 MG/5 ML 100ML BULK BTL TUBE SCH (20:37)
[2018-04-08] MEDS ORDERED: AMOXICILLIN/CLAVULANATE POT 875/125 MG TAB PO SCH (21:00)
[2018-04-09] MEDS: DEXAMETHASONE 2 MG TAB TUBE SCH ×5 (00:11→23:11)
[2018-04-09] MEDS: HYDROmorphONE/DILAUDID 4 MG TAB TUBE SCH ×5 (00:12→23:11)
[2018-04-09] MEDS: HYDROmorphONE/DILAUDID 1 MG/ML INJ IVP PRN ×4 (01:30→20:23)
[2018-04-09] MEDS: NS 1,000 ML IV SCH (05:08)
[2018-04-09] MEDS: LORazepam 2 MG/ML INJ IVP PRN ×2 (05:13→14:05)
[2018-04-09] MEDS: POLYETHYLENE GLYCOL 3350 17 GM PKT TUBE SCH (08:25)
[2018-04-09] MEDS: RIVAROXABAN 10 MG TAB TUBE SCH (08:35)
[2018-04-09] MEDS: POTASSIUM CL 20 MEQ/15 ML UDCUP TUBE SCH (08:35)
[2018-04-09] MEDS: AMOX TR/K CLAV 400 MG/5 ML 100ML BULK BTL TUBE SCH ×2 (08:36→20:26)
[2018-04-09] MEDS: LANSOPRAZOLE SUSP 30MG/10ML UDSYR (Adult) TUBE SCH (08:36)
[2018-04-09] MEDS: GLUTAMINE (GLUTASOLVE) 1 EACH PKT PO SCH ×3 (08:37→20:25)
[2018-04-09] MEDS: PROCTOFOAM HC 10 GM CAN PR SCH ×3 (11:36→20:32)
--- NOTE | 2018-04-09 12:38 | SOAPPROG ---
SOAP Progress Note Assessment/Plan: Assessment: E&M Nasopharyngeal carcinoma * Stage III nasopharyngeal carcinoma: Cycle 3 Day 14 Cisplatin / 5-FU with stomatitis. stomatitis is improving; still very tender. He is starting to take PO. He can swallow apple juice. On dilaudid via PEG. He is also to continue using the topical viscous lidocaine and will try glutasolve. He is to continue the tube feeding but change to bolus with goal kcal 2667-9638/day. * Constipation and hemorrhoids: Continue bowel program. Hemorrhoids are better. * Trouble breathing/swallowing: No further problems on abx Plan: - continue attempts at PO. - continue tube feedings - I suspect he will be here into next week Subjective: He is having less pain with swallowing. He was able to get apple juice down. Objective: Vital Signs Temp Pulse Resp BP Pulse Ox 36.5 C 57 L 15 126/79 H 97 04/09/18 11:54 04/09/18 11:54 04/09/18 11:54 04/09/18 11:54 04/09/18 11:54 Laboratory Results 04/06/18 05:55 04/06/18 05:55 04/07/18 04/08/18 04/09/18 23:59 23:59 23:59 Intake Total 4176 4022 1489 Balance 4176 4022 1489 PT 14.8 SEC (12.0-15.0) 03/27/18 23:10 INR 1.14 (0.83-1.16) 03/27/18 23:10 Physical Exam - Physical Exam General Appearance: mild distress EENT: other (confluent stomatitis is improving) Respiratory: lungs clear Cardiac/Chest: regular rate, rhythm Abdomen: normal bowel sounds, non-tender, soft, other (G-tube exit site looks normal) Skin: warm/dry Neuro/Psych: alert, normal mood/affect ICD10 Worksheet Patient Problems: Problems Problem Status Onset Generalized weakness Acute Stomatitis and mucositis Acute Squamous cell carcinoma Acute
--- NOTE | 2018-04-09 13:06 | HOSPPROG ---
Hospitalist Progress Note Assessment/Plan: 57-year-old with stage 3 nasopharyngeal carcinoma is admitted with nausea & vomiting, currently has severe mucositis and pain. # Stage III nasopharyngeal carcinoma: Cycle 3 Day 14 Cisplatin / 5-FU with stomatitis. stomatitis is improving; still very tender. On dilaudid via PEG. He is also to continue using the topical viscous lidocaine and will try glutasolve. He is to continue the tube feeding but change to bolus with goal kcal 4053-4800/day. * Continue pain control for stomatitis * Tube feeds on bolus feeding * Small amount of p.o. Intake # dyspnea, tracheal compromise on neck CT; possibly due to infection given the new onset this late into his course * symptoms resolved * cont steroids - taper quickly * cont Augmentin today - plan 7 days course (D#4) # uncontrolled pain d/t severe mucositis * cont dilaudid IV and per tube today * DC when pain better controlled # hemorrhoids - sitz bath, proctofoam # constipation - schedule miralax # LUE DVT - xarelto # FEN - TF Subjective: Patient new to me and chart reviewed. Discussed with Dr. Arteaga. Main complaint is throat pain and mouth pain. This is being managed somewhat by pain medication however still quite uncomfortable with minimal p.o. Intake. He was able to drink a little bit of apple juice this morning. He is on tube feeds and transition to bolus feeding. Objective: Vital Signs Temp Pulse Resp BP Pulse Ox 36.5 C 57 L 15 126/79 H 97 04/09/18 11:54 04/09/18 11:54 04/09/18 11:54 04/09/18 11:54 04/09/18 11:54 Laboratory Results 04/06/18 05:55 04/06/18 05:55 04/08/18 04/09/18 04/10/18 05:59 05:59 05:59 Intake Total 3602 3779 Balance 3602 3779 PT 14.8 SEC (12.0-15.0) 03/27/18 23:10 INR 1.14 (0.83-1.16) 03/27/18 23:10 - Physical Exam Constitutional: chronically ill appearing, uncomfortable Eyes: PERRL Ears, Nose, Mouth, Throat: dry mucous membranes Cardiovascular: regular rate and rhythym Respiratory: no respiratory distress Gastrointestinal: soft, non-tender abdomen, other (G-tube placed) Genitourinary: no bladder fullness Skin: warm Neurologic: AAOx3 Psychiatric: interacting appropriately ICD10 Worksheet Patient Problems: Problems Problem Status Onset Generalized weakness Acute Stomatitis and mucositis Acute Squamous cell carcinoma Acute
[2018-04-10] MEDS: LORazepam 2 MG/ML INJ IVP PRN ×2 (00:41→22:14)
[2018-04-10] MEDS: HYDROmorphONE/DILAUDID 1 MG/ML INJ IVP PRN ×4 (03:05→21:00)
[2018-04-10] MEDS: HYDROmorphONE/DILAUDID 4 MG TAB TUBE SCH ×3 (05:30→17:20)
[2018-04-10] MEDS: DEXAMETHASONE 2 MG TAB TUBE SCH ×3 (05:30→17:19)
[2018-04-10] MEDS: POTASSIUM CL 20 MEQ/15 ML UDCUP TUBE SCH (07:48)
[2018-04-10] MEDS: LANSOPRAZOLE SUSP 30MG/10ML UDSYR (Adult) TUBE SCH (07:49)
[2018-04-10] MEDS: AMOX TR/K CLAV 400 MG/5 ML 100ML BULK BTL TUBE SCH ×2 (07:49→22:04)
[2018-04-10] MEDS: RIVAROXABAN 10 MG TAB TUBE SCH (07:49)
[2018-04-10] MEDS: PROCTOFOAM HC 10 GM CAN PR SCH ×3 (07:51→22:04)
[2018-04-10] MEDS: POLYETHYLENE GLYCOL 3350 17 GM PKT TUBE SCH (07:51)
--- NOTE | 2018-04-10 11:18 | HOSPPROG ---
Hospitalist Progress Note Assessment/Plan: 57-year-old with stage 3 nasopharyngeal carcinoma is admitted with nausea & vomiting, currently has severe mucositis and pain. Had some watery diarrhea this morning after you doing the bolus feeding # Diarrhea: Possibly caused from his bolus feeding as he has not done that before. He also took in clears yesterday. * Check for C diff and monitor * Consider Imodium if persists and C diff negative # Stage III nasopharyngeal carcinoma: Cycle 3 Day 14 Cisplatin / 5-FU with stomatitis. stomatitis is improving; still very tender. On dilaudid via PEG. He is also to continue using the topical viscous lidocaine and will try glutasolve. He is to continue the tube feeding but change to bolus with goal kcal 7335-3643/day. * Continue pain control for stomatitis * Tube feeds on bolus feeding * Small amount of p.o. Intake # dyspnea, tracheal compromise on neck CT; possibly due to infection given the new onset this late into his course * symptoms resolved * cont steroids - taper quickly * cont Augmentin today - plan 7 days course (D#4) # uncontrolled pain d/t severe mucositis * cont dilaudid IV and per tube today * DC when pain better controlled # hemorrhoids - sitz bath, proctofoam # constipation - schedule miralax # LUE DVT - xarelto # FEN - TF Subjective: Patient had a lot of diarrhea this morning was watery. No abdominal pain or cramping Objective: Vital Signs Temp Pulse Resp BP Pulse Ox 36.4 C 56 L 18 140/82 H 97 04/10/18 08:55 04/10/18 08:55 04/10/18 08:55 04/10/18 08:55 04/10/18 08:55 Laboratory Results 04/06/18 05:55 04/10/18 03:12 04/09/18 04/10/18 04/11/18 05:59 05:59 05:59 Intake Total 3779 2720 Balance 3779 2720 PT 14.8 SEC (12.0-15.0) 03/27/18 23:10 INR 1.14 (0.83-1.16) 03/27/18 23:10 - Physical Exam Constitutional: chronically ill appearing, uncomfortable Eyes: PERRL Ears, Nose, Mouth, Throat: moist mucous membranes Cardiovascular: regular rate and rhythym Respiratory: no respiratory distress Gastrointestinal: normoactive bowel sounds, soft, non-tender abdomen, other (G tube) Genitourinary: no bladder fullness Skin: warm Neurologic: AAOx3 Psychiatric: interacting appropriately ICD10 Worksheet Patient Problems: Problems Problem Status Onset Stomatitis and mucositis Acute Squamous cell carcinoma Acute Generalized weakness Acute
[2018-04-10] MEDS: LIDOCAINE 2% VISCOUS 15 ML UDCUP PO PRN (11:49)
--- NOTE | 2018-04-10 12:34 | SOAPPROG ---
SOAP Progress Note Assessment/Plan: Assessment: E&M Nasopharyngeal carcinoma * Stage III nasopharyngeal carcinoma: Cycle 3 Day 15 Cisplatin / 5-FU with stomatitis. stomatitis is improving; still very tender. He is starting to take PO jello. He can swallow apple juice. On dilaudid via PEG. He is having a fair amount of diarrhea. Plan: - continue attempts at PO. - consider Imodium and decreasing volume/increasing frequency of tube feedings - Hopefully he can go home early in the week Subjective: Mouth improving. C/O frequent diarrhea Objective: Vital Signs Temp Pulse Resp BP Pulse Ox 36.4 C 56 L 18 140/82 H 97 04/10/18 08:55 04/10/18 08:55 04/10/18 08:55 04/10/18 08:55 04/10/18 08:55 Laboratory Results 04/06/18 05:55 04/10/18 03:12 04/08/18 04/09/18 04/10/18 23:59 23:59 23:59 Intake Total 4022 3579 630 Balance 4022 3579 630 PT 14.8 SEC (12.0-15.0) 03/27/18 23:10 INR 1.14 (0.83-1.16) 03/27/18 23:10 Physical Exam - Physical Exam General Appearance: mild distress EENT: other (grade 2 stomatitis) Respiratory: lungs clear Cardiac/Chest: regular rate, rhythm Abdomen: normal bowel sounds ICD10 Worksheet Patient Problems: Problems Problem Status Onset Generalized weakness Acute Stomatitis and mucositis Acute Squamous cell carcinoma Acute
[2018-04-10] MEDS: GLUTAMINE (GLUTASOLVE) 1 EACH PKT PO SCH ×2 (15:19→22:04)
[2018-04-11] MEDS: HYDROmorphONE/DILAUDID 4 MG TAB TUBE SCH ×4 (00:31→18:03)
[2018-04-11] MEDS: DEXAMETHASONE 2 MG TAB TUBE SCH ×4 (00:32→18:03)
[2018-04-11] MEDS: HYDROmorphONE/DILAUDID 1 MG/ML INJ IVP PRN ×3 (04:14→21:35)
[2018-04-11] MEDS ORDERED: LOPERAMIDE HCL 2 MG CAP PO PRN (08:16)
[2018-04-11] MEDS ORDERED: LORazepam 1 MG/0.5 ML UDSYR TUBE PRN (10:34)
[2018-04-11] MEDS: LORazepam 2 MG/ML INJ IVP PRN (10:39)
--- NOTE | 2018-04-11 10:39 | HOSPPROG ---
Hospitalist Progress Note Assessment/Plan: 57-year-old with stage 3 nasopharyngeal carcinoma is admitted with nausea & vomiting, currently has severe mucositis and pain. Nausea vomiting this morning. # N/V patient had a large amount of emesis this morning and throughout his entire bolus feeding. Given his diarrhea and emesis I recommend he go back on continuous until symptoms get stable again so he can get in calories. He is agreeable to this # Diarrhea: Possibly caused from his bolus feeding as he has not done that before. He also took in clears yesterday. * Check for C diff and monitor * add immodium * Recheck metabolic panel in a.m. # Stage III nasopharyngeal carcinoma: Cycle 3 Day 14 Cisplatin / 5-FU with stomatitis. stomatitis is improving; still very tender. On dilaudid via PEG. He is also to continue using the topical viscous lidocaine and will try glutasolve. He is to continue the tube feeding but change to bolus with goal kcal 3723-1041/day. * Continue pain control for stomatitis * Tube feeds on bolus feeding and not tolerating due to n/v. Will go back on continuous for now. * Small amount of p.o. Intake # dyspnea, tracheal compromise on neck CT; possibly due to infection given the new onset this late into his course * symptoms resolved * cont steroids - taper quickly * cont Augmentin today - plan 7 days course (D#6) * Recheck CBC tomorrow # uncontrolled pain d/t severe mucositis * cont dilaudid IV and per tube today * DC when pain better controlled # hemorrhoids - sitz bath, proctofoam # constipation - schedule miralax # LUE DVT - xarelto # FEN - TF Subjective: Patient had a lot of vomiting this morning did not get any calories and he is worried about his weight loss. Continued throat pain. No respiratory distress Objective: Vital Signs Temp Pulse Resp BP Pulse Ox 36.6 C 60 16 126/83 H 97 04/11/18 07:11 04/11/18 07:11 04/11/18 07:11 04/11/18 07:11 04/11/18 07:11 Laboratory Results 04/06/18 05:55 04/10/18 03:12 04/10/18 04/11/18 04/12/18 05:59 05:59 05:59 Intake Total 2720 1979 Balance 2721979 PT 14.8 SEC (12.0-15.0) 03/27/18 23:10 INR 1.14 (0.83-1.16) 03/27/18 23:10 - Physical Exam Constitutional: chronically ill appearing, uncomfortable Eyes: PERRL Ears, Nose, Mouth, Throat: moist mucous membranes Cardiovascular: regular rate and rhythym Respiratory: no respiratory distress Gastrointestinal: normoactive bowel sounds, other Genitourinary: no bladder fullness Skin: No normal color (Pale) Musculoskeletal: generalized weakness Neurologic: AAOx3 Psychiatric: interacting appropriately, anxious ICD10 Worksheet Patient Problems: Problems Problem Status Onset Generalized weakness Acute Stomatitis and mucositis Acute Squamous cell carcinoma Acute
[2018-04-11] MEDS: GLUTAMINE (GLUTASOLVE) 1 EACH PKT PO SCH ×2 (11:04→21:39)
[2018-04-11] MEDS: POTASSIUM CL 20 MEQ/15 ML UDCUP TUBE SCH (11:04)
[2018-04-11] MEDS: LANSOPRAZOLE SUSP 30MG/10ML UDSYR (Adult) TUBE SCH (11:05)
[2018-04-11] MEDS: RIVAROXABAN 10 MG TAB TUBE SCH (11:06)
[2018-04-11] MEDS: AMOX TR/K CLAV 400 MG/5 ML 100ML BULK BTL TUBE SCH ×2 (11:06→21:43)
[2018-04-11] MEDS: PROCTOFOAM HC 10 GM CAN PR SCH ×3 (11:22→21:45)
[2018-04-11] MEDS: POLYETHYLENE GLYCOL 3350 17 GM PKT TUBE SCH (11:22)
--- NOTE | 2018-04-11 14:25 | SOAPPROG ---
SOAP Progress Note Assessment/Plan: Assessment: E&M Nasopharyngeal carcinoma * Stage III nasopharyngeal carcinoma: Cycle 3 Day 15 Cisplatin / 5-FU with stomatitis. stomatitis is improving; still very tender. He is starting to take PO jello. He can swallow apple juice. On dilaudid via PEG. Episode of emesis this am Plan: - continue attempts at PO. - consider Imodium and decreasing volume/increasing frequency of tube feedings - Hopefully he can go home early in the week Plan: 04/11/18 14:24 Subjective: vomiting this am Objective: Vital Signs Temp Pulse Resp BP Pulse Ox 97.8 F 60 16 126/83 H 97 04/11/18 07:11 04/11/18 07:11 04/11/18 07:11 04/11/18 07:11 04/11/18 07:11 Laboratory Results 04/06/18 05:55 04/10/18 03:12 04/10/18 04/11/18 04/12/18 05:59 05:59 05:59 Intake Total 0 1979 Balance 2719 1979 PT 14.8 SEC (12.0-15.0) 03/27/18 23:10 INR 1.14 (0.83-1.16) 03/27/18 23:10 ICD10 Worksheet Patient Problems: Problems Problem Status Onset Generalized weakness Acute Stomatitis and mucositis Acute Squamous cell carcinoma Acute
--- NOTE | 2018-04-11 15:30 | ASMTCMCOM ---
CM Note CM Note Notes: CM reviewed chart for D/C plan. He is current with [facility] for feeding. It is anticipated that he will D/C later this week. D/C Plan: Home with [facility]. Date Signed: 04/11/2018 03:30 PM Electronically Signed By:Evy Swann
[2018-04-11] MEDS: PROMETHAZINE HCL 25 MG/ML INJ IVP PRN (21:34)
[2018-04-11] MEDS: SCOPOLAMINE HYDROBROMIDE 1 MG/3 DAYS PATCH TD SCH (21:47)
[2018-04-12] MEDS: HYDROmorphONE/DILAUDID 4 MG TAB TUBE SCH ×3 (01:04→12:38)
[2018-04-12] MEDS: DEXAMETHASONE 2 MG TAB TUBE SCH ×3 (01:04→12:38)
[2018-04-12] MEDS: LORazepam 2 MG/ML INJ IVP PRN (04:28)
[2018-04-12] MEDS: HYDROmorphONE/DILAUDID 1 MG/ML INJ IVP PRN (04:29)
[2018-04-12 07:37] LABS: PLATELET COUNT 266 10^3/uL (150-400)
[2018-04-12] MEDS: AMOX TR/K CLAV 400 MG/5 ML 100ML BULK BTL TUBE SCH (08:11)
[2018-04-12] MEDS: POTASSIUM CL 20 MEQ/15 ML UDCUP TUBE SCH (08:12)
[2018-04-12] MEDS: PROCTOFOAM HC 10 GM CAN PR SCH (08:13)
[2018-04-12] MEDS: GLUTAMINE (GLUTASOLVE) 1 EACH PKT PO SCH (08:13)
[2018-04-12] MEDS: LANSOPRAZOLE SUSP 30MG/10ML UDSYR (Adult) TUBE SCH (08:13)
[2018-04-12] MEDS: POLYETHYLENE GLYCOL 3350 17 GM PKT TUBE SCH (08:13)
[2018-04-12] MEDS: RIVAROXABAN 10 MG TAB TUBE SCH (08:13)
[2018-04-12 08:36] VITALS: BP 113/74
--- NOTE | 2018-04-12 12:25 | GDS ---
[f rep st] DISCHARGE SUMMARY DIAGNOSES: 1. Severe mouth and throat pain secondary to mucositis and treatment for squamous cell carcinoma of the nasopharynx. 2. Nausea, vomiting. 3. 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 4. Protein calorie malnutrition. PROCEDURES DONE: Neck CT with contrast showing prominent hyperemia parapharyngeal soft tissue negati ve for dominant mass or lymph node involvement. HOSPITAL COURSE: The patient is a 57-year-old with a history of squamous cell carcinoma of the neck. He underwent radiation chemotherapy and is essentially cured but has severe side effects from thera py, including mucositis and pain. He developed nausea, vomiting and was readmitted for further evalu ation and treatment. Over the course of his hospitalization, his pain was controlled with IV pain me dications and eventually, he was transitioned to oral pain medicines. He continued tube feeds, as we ll as trying to take oral feeds as well. He developed some discomfort in his neck and neck CT was do ne. He was started on Decadron and Augmentin and the next day, his pain was completely resolved and has continued to do well for the last week. Those medications will be discontinued. At the time of discharge, he is comfortable. He is tolerating bolus tube feeds and is actually tolerating some oral intake as well. He will be discharged with his usual home medications including some p.o. Dilaudid. CONDITION ON DISCHARGE: Fair. He is still underweight and will need close followup. DISCHARGE MEDICATIONS: Please see discharge medication form. FOLLOWUP: Will be with Dr. Lackey within a week. He will continue home tube feeds and bolus feedings. Total time spent with patient on day of discharge and coordination of care is 35 minutes. /[id number]/MODL
--- NOTE | 2018-04-12 13:04 | ASMTDCNOTE ---
Case Management Discharge Discharge Order Complete? Answers: Yes Patient to Obtain Answers: Independently Medications Transportation Arranged Answers: Family/Friends Family Notified Answers: Yes Notes: daughter, Ashley Discharge Comments Notes: Patient d/c'ing to home with [facility]. Notified [facility] patient is d/c'ing today. Patient will need support for tube feed and nursing care. No further needs. Date Signed: 04/12/2018 01:04 PM Electronically Signed By:Sandrine Jackson LCSW
--- NOTE | 2018-04-12 14:50 | PDIAF ---
- Diagnosis Diagnosis: mucositis and throat pain, protein calorie malnutrition, nasopharyngeal ca Code Status: Full Code - Medication Management Discharge Medications: Medications to Continue on Transfer HYDROmorphone HCL [Dilaudid 2 mg (*)] 4 mg PO Q4-6PRN PRN 11/15/17 [Last Taken 03/28/18 08:00] Prochlorperazine Maleate [Compazine 10mg (*)] 10 mg PO Q6HRS PRN 11/15/17 [Last Taken 01/13/18] LORazepam [Ativan (*)] 1 mg PO BID 01/13/18 [Last Taken 03/28/18] Omeprazole 40 mg PO DAILY 01/13/18 [Last Taken 03/27/18] Rivaroxaban [Xarelto 10mg (*)] 20 mg PO DAILY 01/13/18 [Last Taken 03/27/18] Ondansetron HCl [Zofran] 4 - 8 mg PO TID PRN #40 tablet 01/16/18 [Last Taken ] Glutamine [Glutasolve Resource] 1 each PO BID #14 pkt 04/12/18 [Last Taken Unknown] HYDROmorphone HCL [Dilaudid 4 mg (*)] 4 - 8 mg TUBE Q6HRS PRN #30 tab 04/12/18 [ Last Taken Unknown] Lansoprazole [PREVACID 30mg/10ml susp (Adult) (*)] 30 mg TUBE DAILY #20 udsyr [Last Taken Unknown] Discharge Medications: Refer to the Discharge Home Medication list for PRN reason. - Orders Services needed: Home Care, Speech Language Pathologist Home Care Face to Face: I certify that this patient was under my care and that I had the required [id number] encounter meeting the encounter requirements on the discharge day. My findings support the fact that the patient is homebound as defined in Home Care Face to Face Continued: CMS Chapter 7 Medicare Benefits Manual 30.1.1 , The condition of the patient is such that there exists a normal inability to leave home and consequently, leaving home would require a considerable and taxing effort. Diet Texture: Dysphagia 2 - Mechanically Altered - Chopped, Ground, Thin Liquids Tube feeding: jevity 1.5cal. 300ml at 7am, 11am, 3pm and 7pm. Additional Instructions: Follow up with Dr. Padilla within a week Continue tube feeds at 7:00 a.m., 11:00 a.m., 3:00 p.m. And 7:00 p.m.. 300 mL per feeding - Follow Up Care Current Providers and Referrals: Petar Padilla MD [Medical Doctor] - NONE *PRIMARY CARE P,. [Primary Care Provider] - As per Instructions
== END 2018-04-12 13:02 | disposition home or self-care (01) | DRG 392 ==
LOC: F1N 03-28 02:52 → OBSVTOIN 03-29 14:47 → UNDODISIN 04-01 15:55
PROVIDERS: ADMIT Family Medicine; ATTEND Family Medicine
DX: R11.2 Nausea with vomiting, unspecified (principal); E44.0 Moderate protein-calorie malnutrition; I82.602 Acute embolism and thrombosis of unspecified veins of left upper extremity; T42.6X5A Adverse effect of other antiepileptic and sedative-hypnotic drugs, initial encounter; K12.31 Oral mucositis (ulcerative) due to antineoplastic therapy; K12.1 Other forms of stomatitis; C11.9 Malignant neoplasm of nasopharynx, unspecified; E86.0 Dehydration; I10 Essential (primary) hypertension; R06.09 Other forms of dyspnea; K59.00 Constipation, unspecified; R19.7 Diarrhea, unspecified; K64.9 Unspecified hemorrhoids; Z93.1 Gastrostomy status; Z87.891 Personal history of nicotine dependence; Z79.01 Long term (current) use of anticoagulants; Z80.9 Family history of malignant neoplasm, unspecified
CPT/HCPCS: 96374; 97161-GP; G0378; J0295; J1100; J1170; J2060; J2405; J2550; J2997; J3480; Q9967

== ENCOUNTER → 2018-06-03 | Outpatient (CLI) | payer OTHER | LOC: FIMAGING 09:40 | PROVIDERS: ATTEND Internal Medicine Hematology & Oncology | PROC: 0DP63UZ Removal of Feeding Device from Stomach, Percutaneous Approach (ICD-10-PCS; principal; 2018-06-03) | DX: Z43.1 Encounter for attention to gastrostomy (principal); Z85.819 Personal history of malignant neoplasm of unspecified site of lip, oral cavity, and pharynx ==